=== PATIENT | female | born 1950 | race African-American/Black ===

== ENCOUNTER → 2021-01-30 | Outpatient (CLI) | payer OTHER ==
[2021-01-30 07:33] LABS: Basophils # (auto) 0 10 ^3/uL (0-0.2); Eosinophils # (auto) 0.2 10 ^3/uL (0-0.8); Monocytes # (auto) 0.4 10 ^3/uL (0-1.3); Neutrophils # (auto) 3.8 10 ^3/uL (1.6-8.6); Red Cell Distribution Width 13.1 % (11.8-14.3)
[2021-01-30 07:35] LABS: Basophils % (auto) 0.6 % (0.0-2.0); Eosinophils % (auto) 3.4 % (0.0-7.0); Hematocrit 43.3 % (36.0-46.0); Hemoglobin 14.9 g/dL (12.2-16.2); Lymphocytes # (auto) 1.1 10 ^3/uL (0.4-5.4); Lymphocytes % (auto) 19.3 % (10.0-50.0); Mean Corpuscular Hemoglobin 34.2 pg (28.0-32.0); Mean Corpuscular Hgb Conc. 34.3 g/dL (32.0-36.0); Mean Corpuscular Volume 99.7 fL (80.0-100.0); Monocytes % (auto) 8.1 % (0.0-12.0); Neutrophils % (auto) 68.6 % (37.0-80.0); Nucleated Red Blood Cells % 0.1 %; Platelet Count (auto) 195 10^3/uL (140-450); Red Blood Cells 4.34 10^6/uL (4.0-5.20); White Blood Cell 5.5 10^3/uL (4.4-10.8)
[2021-01-30 08:15] LABS: Albumin 3.6 g/dL (3.4-5.0); Calcium 9.5 mg/dL (8.5-10.1); Potassium 3.9 mmol/L (3.5-5.1)
[2021-01-30 08:21] LABS: BUN/Creatinine Ratio 22.2; Bilirubin, Total 0.4 mg/dL (0.2-1.0); Total Protein 7.6 g/dL (6.4-8.2)
== END | disposition home or self-care (01) ==
LOC: LAB 07:06
DX: I10 Essential (primary) hypertension (principal); E78.5 Hyperlipidemia, unspecified; M05.741 Rheumatoid arthritis with rheumatoid factor of right hand without organ or systems involvement
CPT/HCPCS: 36415; 80053; 80061; 84443; 85025; 86431

== ENCOUNTER → 2021-04-11 | Outpatient (CLI) | payer OTHER ==
[2021-04-11 12:10] LABS: Basophils # (auto) 0.1 10 ^3/uL (0-0.2); Basophils % (auto) 0.9 % (0.0-2.0); Eosinophils # (auto) 0.1 10 ^3/uL (0-0.8); Eosinophils % (auto) 1.9 % (0.0-7.0); Hematocrit 41.3 % (36.0-46.0); Lymphocytes # (auto) 1.4 10 ^3/uL (0.4-5.4); Lymphocytes % (auto) 19.5 % (10.0-50.0); Mean Corpuscular Hemoglobin 33.7 pg (28.0-32.0); Mean Corpuscular Hgb Conc. 33.9 g/dL (32.0-36.0); Mean Corpuscular Volume 99.4 fL (80.0-100.0); Monocytes # (auto) 0.5 10 ^3/uL (0-1.3); Monocytes % (auto) 6.3 % (0.0-12.0); Neutrophils # (auto) 5.1 10 ^3/uL (1.6-8.6); Neutrophils % (auto) 71.4 % (37.0-80.0); Nucleated Red Blood Cells % 0.1 %; Platelet Count (auto) 194 10^3/uL (140-450); Red Blood Cells 4.15 10^6/uL (4.0-5.20); Red Cell Distribution Width 13.8 % (11.8-14.3); White Blood Cell 7.2 10^3/uL (4.4-10.8)
[2021-04-11 13:28] LABS: Potassium 3.8 mmol/L (3.5-5.1)
[2021-04-11 13:34] LABS: Albumin 3.9 g/dL (3.4-5.0); BUN/Creatinine Ratio 17.7; Bilirubin, Total 0.3 mg/dL (0.2-1.0); CRP High Sensitivity 0.19 mg/dL (< 0.3); Total Protein 7.7 g/dL (6.4-8.2)
== END | disposition home or self-care (01) ==
LOC: LAB 11:31
PROVIDERS: ATTEND Internal Medicine Rheumatology
DX: M05.79 Rheumatoid arthritis with rheumatoid factor of multiple sites without organ or systems involvement (principal); R94.5 Abnormal results of liver function studies; M32.10 Systemic lupus erythematosus, organ or system involvement unspecified
CPT/HCPCS: 36415; 80053; 85025; 85049; 85652; 86141; 86200; 86431

== ENCOUNTER → 2021-04-25 | Outpatient (CLI) | payer OTHER | END | disposition home or self-care (01) | LOC: XYW 08:48 | PROVIDERS: ATTEND Internal Medicine | DX: I08.2 Rheumatic disorders of both aortic and tricuspid valves (principal); R00.2 Palpitations | CPT/HCPCS: 93306 ==

== ENCOUNTER 2021-07-18 07:55 | Inpatient (IN) | payer OTHER ==
[~2021-07-18] VITALS: Ht 172.7 cm; Wt 80.3 kg
[2021-07-18 08:54] LABS: Urine Specific Gravity 1.014 (1.001-1.035)
[2021-07-18 08:55] LABS: Urine Bacteria NONE SEEN /hpf (None Seen); Urine Blood Negative /uL (Negative); Urine Hyaline Cast FEW /lpf (0 - 2); Urine WBC 1 /hpf (0 - 5)
[2021-07-18 09:01] LABS: Albumin 3.9 g/dL (3.4-5.0); BUN/Creatinine Ratio 18.5; Calcium 9.2 mg/dL (8.5-10.1); Potassium 3.2 mmol/L (3.5-5.1)
[2021-07-18 09:03] LABS: Bilirubin, Total 0.9 mg/dL (0.2-1.0); Total Protein 8.3 g/dL (6.4-8.2)
[2021-07-18 09:17] LABS: Basophils # (auto) 0 10 ^3/uL (0-0.2); Basophils % (auto) 0.2 % (0.0-2.0); Eosinophils # (auto) 0 10 ^3/uL (0-0.8); Eosinophils % (auto) 0.2 % (0.0-7.0); Hematocrit 50.1 % (36.0-46.0); Hemoglobin 17.1 g/dL (12.2-16.2); Lymphocytes # (auto) 0.6 10 ^3/uL (0.4-5.4); Lymphocytes % (auto) 8.5 % (10.0-50.0); Mean Corpuscular Hemoglobin 33.4 pg (28.0-32.0); Mean Corpuscular Hgb Conc. 34.1 g/dL (32.0-36.0); Mean Corpuscular Volume 97.9 fL (80.0-100.0); Monocytes # (auto) 1.2 10 ^3/uL (0-1.3); Monocytes % (auto) 17.3 % (0.0-12.0); Neutrophils % (auto) 73.8 % (37.0-80.0); Nucleated Red Blood Cells % 0.2 %; Red Blood Cells 5.12 10^6/uL (4.0-5.20); Red Cell Distribution Width 12.3 % (11.8-14.3); White Blood Cell 6.7 10^3/uL (4.4-10.8)
[2021-07-18] MEDS ORDERED: LACTATED RINGER'S 1,000 ML IV ONE (13:15)
[2021-07-18] MEDS ORDERED: MORPHINE SULFATE INJECTION 2 MG/ML SYRG IV PRN ×2 (13:15→15:00)
[2021-07-18] MEDS ORDERED: NITROGLYCERIN 0.4 MG SL TAB SL PRN ×2 (13:15→15:00)
[2021-07-18] MEDS ORDERED: POTASSIUM CHL 20MEQ/100ML 100 ML IV ONE ×2 (13:15→15:16)
[2021-07-18] MEDS ORDERED: ACETAMINOPHEN 325 MG TAB PO PRN (15:00)
[2021-07-18] MEDS ORDERED: ALUM & MAG HYDROX-SIMETH LIQ(MAALOX) 30 ML PO PRN (15:00)
[2021-07-18] MEDS ORDERED: PANTOPRAZOLE 40 MG/10 ML VIAL INJ IV ONE (15:00)
[2021-07-18] MEDS ORDERED: DOCUSATE SOD 100 MG CAP PO PRN (15:00)
[2021-07-18] MEDS ORDERED: IPRATROPIUM BROM 0.5 MG/2.5ML INH SOL NEB ONE (15:00)
[2021-07-18] MEDS ORDERED: ONDANSETRON HCL 4 MG/2 ML VIAL IV PRN (15:00)
[2021-07-18] MEDS ORDERED: CLINDAMYCIN 600MG IV 50 ML IV ONE (15:00)
[2021-07-18] MEDS ORDERED: NIFEdipine ER 30 MG TAB PO ONE (15:00)
[2021-07-18] MEDS ORDERED: cefTRIAXone 1GM/50ML D5W 50 ML IV ONE (15:00)
[2021-07-18] MEDS ORDERED: LORazepam 0.5 MG TAB PO PRN (15:00)
[2021-07-18 15:24] VITALS: BP 138/90
[2021-07-18] MEDS: SOD CHL 0.9%/ KCL 20MEQ 1,000 ML IV SCH (15:37)
[2021-07-18 16:27] LABS: Cholesterol 151 mg/dL (< 200)
[2021-07-18] MEDS ORDERED: SOD CHL 0.9%/ KCL 20MEQ 1,000 ML IV ONE (16:27)
[2021-07-18 16:31] LABS: HDL Cholesterol 52 mg/dL (40-59); LDL Cholesterol 82 mg/dL (< 100); Triglycerides 154 mg/dL (< 150)
[2021-07-18 16:36] VITALS: BP 134/92
[2021-07-18] MEDS: MORPHINE SULFATE INJECTION 2 MG/ML SYRG IV PRN (17:59)
[2021-07-18 20:00] VITALS: BP 110/65
[2021-07-18] MEDS ORDERED: CLINDAMYCIN 600MG IV 50 ML IV SCH (21:25)
[2021-07-18] MEDS: CLINDAMYCIN 600MG IV 50 ML IV SCH (21:32)
[2021-07-18 22:00] VITALS: BP 110/65
[2021-07-19] MEDS: SOD CHL 0.9%/ KCL 20MEQ 1,000 ML IV SCH ×2 (04:20→09:57)
[2021-07-19 05:00] VITALS: BP 102/64
[2021-07-19] MEDS: CLINDAMYCIN 600MG IV 50 ML IV SCH ×3 (06:00→22:00)
[2021-07-19] MEDS ORDERED: GASTROGRAFIN 120 ML SOL ONE (07:33)
[2021-07-19] MEDS: cefTRIAXone 1GM/50ML D5W 50 ML IV SCH (09:46)
[2021-07-19] MEDS: MORPHINE SULFATE INJECTION 2 MG/ML SYRG IV PRN (09:47)
[2021-07-19] MEDS: hydrOXYchloroQUINE SULFATE 200 MG TAB PO SCH (10:00)
[2021-07-19] MEDS: NIFEdipine ER 30 MG TAB PO SCH (10:00)
[2021-07-19] MEDS: PANTOPRAZOLE 40 MG/10 ML VIAL INJ IV SCH (12:29)
[2021-07-19] MEDS ORDERED: DICYCLOMINE HCL (10MG/ML) 2 ML AMPULE IM PRN (12:30)
[2021-07-19 12:52] VITALS: BP 90/61
[2021-07-19] MEDS: IPRATROPIUM BROM 0.5 MG/2.5ML INH SOL NEB PRN (13:55)
[2021-07-19 17:00] VITALS: BP 99/64
[2021-07-19] MEDS ORDERED: DICYCLOMINE HCL (10MG/ML) 2 ML AMPULE IM ONE (19:00)
[2021-07-19 20:00] VITALS: BP 124/72
[2021-07-19] MEDS: DICYCLOMINE HCL (10MG/ML) 2 ML AMPULE IM SCH (21:30)
[2021-07-19 22:00] VITALS: BP 124/72
[2021-07-20] MEDS ORDERED: DICYCLOMINE HCL (10MG/ML) 2 ML AMPULE IM SCH
[2021-07-20 00:25] LABS: Urine Bacteria FEW /hpf (None Seen); Urine Blood Negative /uL (Negative); Urine Hyaline Cast FEW /lpf (0 - 2); Urine Mucus FEW (None Seen); Urine WBC 7 /hpf (0 - 5)
[2021-07-20 00:51] LABS: Alcohol, Urine < 3.0 mg/dL (0-10); Amphetamine Screen, Urine NEGATIVE (NEGATIVE); Barbiturate Scree,Urine NEGATIVE (NEGATIVE); Benzodiazephine Screen, Urine NEGATIVE (NEGATIVE); Cannabinoid Screen, Urine NEGATIVE (NEGATIVE); Cocaine Screen, Urine NEGATIVE (NEGATIVE); Opiate Scree,Urine POSITIVE (NEGATIVE); Phencyclidine Screen, Urine NEGATIVE (NEGATIVE)
[2021-07-20] MEDS: DICYCLOMINE HCL (10MG/ML) 2 ML AMPULE IM SCH (03:00)
[2021-07-20 05:00] VITALS: BP 130/74
[2021-07-20] MEDS: CLINDAMYCIN 600MG IV 50 ML IV SCH (06:00)
[2021-07-20] MEDS: IPRATROPIUM BROM 0.5 MG/2.5ML INH SOL NEB PRN (06:38)
[2021-07-20 06:42] LABS: Basophils # (auto) 0 10 ^3/uL (0-0.2); Basophils % (auto) 0.1 % (0.0-2.0); Eosinophils # (auto) 0 10 ^3/uL (0-0.8); Hematocrit 43.8 % (36.0-46.0); Hemoglobin 14.8 g/dL (12.2-16.2); Lymphocytes # (auto) 0.3 10 ^3/uL (0.4-5.4); Lymphocytes % (auto) 4.9 % (10.0-50.0); Mean Corpuscular Hemoglobin 33.1 pg (28.0-32.0); Mean Corpuscular Hgb Conc. 33.8 g/dL (32.0-36.0); Mean Corpuscular Volume 97.7 fL (80.0-100.0); Monocytes # (auto) 1.1 10 ^3/uL (0-1.3); Monocytes % (auto) 14.9 % (0.0-12.0); Neutrophils # (auto) 5.7 10 ^3/uL (1.6-8.6); Neutrophils % (auto) 80.1 % (37.0-80.0); Red Blood Cells 4.48 10^6/uL (4.0-5.20); Red Cell Distribution Width 12.3 % (11.8-14.3); White Blood Cell 7.1 10^3/uL (4.4-10.8)
[2021-07-20] MEDS: SOD CHL 0.9%/ KCL 20MEQ 1,000 ML IV SCH ×2 (07:00→11:15)
[2021-07-20 07:02] LABS: INR 1.01 (0.9-1.15); Partial Thromboplastin Time 24.5 sec (23.6-33.0)
[2021-07-20 07:05] LABS: Potassium 3.1 mmol/L (3.5-5.1)
[2021-07-20 07:08] LABS: Albumin 3.1 g/dL (3.4-5.0); BUN/Creatinine Ratio 19.9; Calcium 8.8 mg/dL (8.5-10.1)
[2021-07-20 07:20] LABS: Bilirubin, Total 0.4 mg/dL (0.2-1.0); Phosphorus 8.1 mg/dL (2.5-4.90); Total Protein 7.3 g/dL (6.4-8.2)
[2021-07-20 07:41] LABS: Magnesium 4.1 mg/dL (1.6-2.6)
[2021-07-20 09:00] VITALS: BP 118/75
[2021-07-20] MEDS: cefTRIAXone 1GM/50ML D5W 50 ML IV SCH (09:26)
[2021-07-20] MEDS: PANTOPRAZOLE 40 MG/10 ML VIAL INJ IV SCH (10:00)
[2021-07-20] MEDS: hydrOXYchloroQUINE SULFATE 200 MG TAB PO SCH (10:00)
[2021-07-20] MEDS: NIFEdipine ER 30 MG TAB PO SCH (10:00)
[2021-07-20] MEDS: D5W/SOD CHL 0.45%/KCL 40MEQ 1,000 ML IV SCH ×2 (11:00→19:20)
[2021-07-20] MEDS ORDERED: SODIUM CHLORIDE 0.9% 1,000 ML IV ONE (11:00)
[2021-07-20] MEDS ORDERED: POTASSIUM CHLORIDE 60 MEQ, LIDOCAINE 1% (LOCAL ANESTH.) 6 ML in SODIUM CHL 0.9% 500 ML IV ONE (13:00)
[2021-07-20 13:02] VITALS: BP 126/78
[2021-07-20 21:57] VITALS: BP 126/76
[2021-07-21] MEDS: D5W/SOD CHL 0.45%/KCL 40MEQ 1,000 ML IV SCH ×5 (03:40→21:40)
[2021-07-21 04:47] VITALS: BP 124/77
[2021-07-21 06:22] LABS: Calcium 8.7 mg/dL (8.5-10.1); Potassium 3.5 mmol/L (3.5-5.1)
[2021-07-21 06:24] LABS: BUN/Creatinine Ratio 24.9; Phosphorus 4.1 mg/dL (2.5-4.90)
[2021-07-21 06:41] LABS: Magnesium 4.1 mg/dL (1.6-2.6)
[2021-07-21 09:00] VITALS: BP 126/81
[2021-07-21] MEDS: PANTOPRAZOLE 40 MG/10 ML VIAL INJ IV SCH (10:00)
[2021-07-21] MEDS: hydrOXYchloroQUINE SULFATE 200 MG TAB PO SCH (10:00)
[2021-07-21] MEDS: NIFEdipine ER 30 MG TAB PO SCH (10:00)
[2021-07-21 13:00] VITALS: BP 132/82
[2021-07-21 17:00] VITALS: BP 150/82
[2021-07-21 20:01] VITALS: BP 150/82
[2021-07-21 22:00] VITALS: BP 147/96
[2021-07-22] MEDS: D5W/SOD CHL 0.45%/KCL 40MEQ 1,000 ML IV SCH ×3 (04:56→23:34)
[2021-07-22 05:00] VITALS: BP 138/91
[2021-07-22 06:04] LABS: Basophils # (auto) 0 10 ^3/uL (0-0.2); Basophils % (auto) 0.2 % (0.0-2.0); Eosinophils # (auto) 0.1 10 ^3/uL (0-0.8); Eosinophils % (auto) 1.3 % (0.0-7.0); Hematocrit 38.3 % (36.0-46.0); Hemoglobin 12.8 g/dL (12.2-16.2); Lymphocytes # (auto) 0.5 10 ^3/uL (0.4-5.4); Lymphocytes % (auto) 5.7 % (10.0-50.0); Mean Corpuscular Hemoglobin 33.3 pg (28.0-32.0); Mean Corpuscular Hgb Conc. 33.5 g/dL (32.0-36.0); Mean Corpuscular Volume 99.3 fL (80.0-100.0); Monocytes # (auto) 1.2 10 ^3/uL (0-1.3); Monocytes % (auto) 14.3 % (0.0-12.0); Neutrophils # (auto) 6.4 10 ^3/uL (1.6-8.6); Neutrophils % (auto) 78.5 % (37.0-80.0); Nucleated Red Blood Cells % 0.1 %; Red Blood Cells 3.85 10^6/uL (4.0-5.20); Red Cell Distribution Width 12.6 % (11.8-14.3); White Blood Cell 8.2 10^3/uL (4.4-10.8)
[2021-07-22 08:43] VITALS: BP 143/91
[2021-07-22 09:16] LABS: BUN/Creatinine Ratio 24.2; Calcium 8.6 mg/dL (8.5-10.1); Potassium 4.2 mmol/L (3.5-5.1)
[2021-07-22] MEDS: NIFEdipine ER 30 MG TAB PO SCH (10:00)
[2021-07-22] MEDS: hydrOXYchloroQUINE SULFATE 200 MG TAB PO SCH (10:00)
[2021-07-22] MEDS: PANTOPRAZOLE 40 MG/10 ML VIAL INJ IV SCH (10:42)
[2021-07-22] MEDS ORDERED: SODIUM CHLORIDE LOCK 10 ML ONE (12:14)
[2021-07-22] MEDS ORDERED: diphenhdrAMINE HCL 50 MG/1 ML VL ONE (12:15)
[2021-07-22] MEDS: MIDAZOLAM HCL 5 MG/ML-1ML VIAL ONE ×4 (14:19→14:28)
[2021-07-22] MEDS: fentaNYL CITRATE 100 MCG/2 ML VL ONE ×4 (14:19→14:28)
[2021-07-22] MEDS: MORPHINE SULFATE INJECTION 2 MG/ML SYRG IV PRN (16:46)
[2021-07-22 17:00] VITALS: BP 184/96
[2021-07-22] MEDS: hydrALAZINE HCL 20 MG/ML VL IV PRN (17:48)
[2021-07-22 18:50] VITALS: BP 147/101
[2021-07-22 22:00] VITALS: BP 133/87
[2021-07-23] MEDS: hydrALAZINE HCL 20 MG/ML VL IV PRN (04:12)
[2021-07-23] MEDS: D5W/SOD CHL 0.45%/KCL 40MEQ 1,000 ML IV SCH ×2 (04:12→10:15)
[2021-07-23 04:37] VITALS: BP 146/81
[2021-07-23 05:00] VITALS: BP 176/94
[2021-07-23 05:54] LABS: Basophils # (auto) 0 10 ^3/uL (0-0.2); Basophils % (auto) 0.1 % (0.0-2.0); Eosinophils # (auto) 0.2 10 ^3/uL (0-0.8); Eosinophils % (auto) 1.7 % (0.0-7.0); Hematocrit 40.1 % (36.0-46.0); Hemoglobin 13.4 g/dL (12.2-16.2); Lymphocytes # (auto) 0.8 10 ^3/uL (0.4-5.4); Lymphocytes % (auto) 8.1 % (10.0-50.0); Mean Corpuscular Hemoglobin 33.4 pg (28.0-32.0); Mean Corpuscular Hgb Conc. 33.4 g/dL (32.0-36.0); Mean Corpuscular Volume 100.1 fL (80.0-100.0); Monocytes # (auto) 1.2 10 ^3/uL (0-1.3); Monocytes % (auto) 12.5 % (0.0-12.0); Neutrophils # (auto) 7.6 10 ^3/uL (1.6-8.6); Neutrophils % (auto) 77.6 % (37.0-80.0); Red Cell Distribution Width 12.3 % (11.8-14.3); White Blood Cell 9.8 10^3/uL (4.4-10.8)
[2021-07-23 06:18] LABS: Albumin 2.3 g/dL (3.4-5.0); BUN/Creatinine Ratio 13.4; Calcium 8.5 mg/dL (8.5-10.1); Magnesium 2.1 mg/dL (1.6-2.6); Potassium 4.6 mmol/L (3.5-5.1)
[2021-07-23 06:20] LABS: Bilirubin, Total 0.3 mg/dL (0.2-1.0); Phosphorus 1.5 mg/dL (2.5-4.90)
[2021-07-23 09:00] VITALS: BP 145/93
[2021-07-23] MEDS ORDERED: POTASSIUM PHOSPHATE 22 MEQ in SODIUM CHL 0.9% 100 ML IV ONE (09:30)
[2021-07-23] MEDS: NIFEdipine ER 30 MG TAB PO SCH (10:00)
[2021-07-23] MEDS: hydrOXYchloroQUINE SULFATE 200 MG TAB PO SCH (10:00)
[2021-07-23] MEDS: PANTOPRAZOLE 40 MG/10 ML VIAL INJ IV SCH (10:15)
[2021-07-23 13:00] VITALS: BP 142/97
[2021-07-23] MEDS: SOD CHL 0.45% 1,000 ML IV SCH ×2 (13:03→23:38)
[2021-07-23 17:00] VITALS: BP 146/115
[2021-07-23] MEDS: METOCLOPRAMIDE HCL 5MG/ml INJ 2ml VIAL IV SCH ×2 (18:47→23:38)
[2021-07-23 21:50] VITALS: BP 149/90
[2021-07-24 05:00] VITALS: BP 150/99
[2021-07-24] MEDS: METOCLOPRAMIDE HCL 5MG/ml INJ 2ml VIAL IV SCH ×3 (05:56→18:15)
[2021-07-24 06:22] LABS: Potassium 4.3 mmol/L (3.5-5.1)
[2021-07-24 06:24] LABS: BUN/Creatinine Ratio 10.5; Calcium 9.4 mg/dL (8.5-10.1); Phosphorus 3.2 mg/dL (2.5-4.90)
[2021-07-24] MEDS: SOD CHL 0.45% 1,000 ML IV SCH (08:45)
[2021-07-24] MEDS ORDERED: fentaNYL CITRATE 100 MCG/2 ML VL ONE (08:51)
[2021-07-24] MEDS ORDERED: HYDROmorphone HCL 2 MG/ML VL ONE (08:51)
[2021-07-24] MEDS ORDERED: MIDAZOLAM HCL 2MG/2ML 2ml VIAL (1mg/ml) ONE (08:51)
[2021-07-24] MEDS ORDERED: ROCURONIUM 10MG/ML 10ML VIAL IV ONE (08:51)
[2021-07-24] MEDS ORDERED: ONDANSETRON HCL 4 MG/2 ML VIAL ONE (08:52)
[2021-07-24] MEDS ORDERED: ePHEDrine SULFATE 50 MG/ML AMP ONE (08:52)
[2021-07-24] MEDS ORDERED: GLYCOPYRROLATE 0.2 MG/ML 1ML VIAL ONE (08:52)
[2021-07-24] MEDS ORDERED: DexAMETHasone SOD PHOS 10MG/1ML VIAL INJ ONE (08:52)
[2021-07-24] MEDS ORDERED: HYDROCORTISONE SOD SUCC 100 MG/2ML INJ VIAL ONE (08:52)
[2021-07-24] MEDS ORDERED: LIDOCAINE 2% (LOCAL ANESTH.) PF 5ml SDV ONE (08:52)
[2021-07-24 09:00] VITALS: BP 141/93
[2021-07-24] MEDS ORDERED: metroNIDAZOLE 500MG/100ML 100 ML IV ONE (09:07)
[2021-07-24] MEDS ORDERED: FAMOTIDINE (10MG/ML) 2ML VL IV ONE (09:10)
[2021-07-24] MEDS: hydrOXYchloroQUINE SULFATE 200 MG TAB PO SCH (10:00)
[2021-07-24] MEDS: NIFEdipine ER 30 MG TAB PO SCH (10:00)
[2021-07-24] MEDS ORDERED: BACITRACIN TOP OINT 1 UD PKG TOP ONE (10:07)
[2021-07-24] MEDS ORDERED: HYDROmorphone HCL 2 MG/ML VL IV PRN (11:00)
[2021-07-24] MEDS ORDERED: ONDANSETRON HCL 4 MG/2 ML VIAL IV PRN (11:00)
[2021-07-24 11:21] LABS: Albumin 2.9 g/dL (3.4-5.0); Bilirubin, Direct 0.1 mg/dL (0-0.2)
[2021-07-24 11:24] LABS: Bilirubin, Total 0.3 mg/dL (0.2-1.0); Total Protein 7.2 g/dL (6.4-8.2)
[2021-07-24] MEDS ORDERED: TPN PER PHARMACY 0 ML IV SCH (11:30)
[2021-07-24] MEDS: D5W/SOD CHL 0.45%/KCL 20MEQ 1,000 ML IV SCH ×2 (11:50→18:17)
[2021-07-24] MEDS: cefTRIAXone 1GM/50ML D5W 50 ML IV SCH (11:50)
[2021-07-24] MEDS: PANTOPRAZOLE 40 MG/10 ML VIAL INJ IV SCH (11:50)
[2021-07-24 12:34] VITALS: BP 125/77
[2021-07-24 13:07] LABS: INR 1.05 (0.9-1.15); Partial Thromboplastin Time 26.6 sec (23.6-33.0)
[2021-07-24] MEDS: metroNIDAZOLE 500MG/100ML 100 ML IV SCH ×2 (13:32→20:47)
[2021-07-24 16:32] VITALS: BP 135/85
[2021-07-24] MEDS ORDERED: LIDOCAINE 1% (LOCAL ANESTH.) PF 5ml SDV ID ONE (17:45)
[2021-07-24] MEDS: HYDROCORTISONE SOD SUCC 100 MG/2ML INJ VIAL IV SCH (18:15)
[2021-07-24] MEDS ORDERED: PPN PER PHARMACY IV NR ×7 (20:00)
[2021-07-24] MEDS: SODIUM CHLOR 0.9% PF (SALINE LOCK) 10ML VIAL/SYR IV SCH (20:47)
[2021-07-24 21:56] VITALS: BP 143/86
[2021-07-25] VITALS (7 sets, daily range): BP systolic 144–163; BP diastolic 81–97
[2021-07-25] MEDS ORDERED: DEXTROSE (50%) 50ML SYRG IV SCH
[2021-07-25] MEDS: HYDROCORTISONE SOD SUCC 100 MG/2ML INJ VIAL IV SCH ×2 (00:52→08:27)
[2021-07-25] MEDS: METOCLOPRAMIDE HCL 5MG/ml INJ 2ml VIAL IV SCH ×4 (00:52→18:16)
[2021-07-25] MEDS: ACCU-CHEK COMFORT CURVE STRIP VI SCH ×4 (00:53→18:07)
[2021-07-25] MEDS: D5W/SOD CHL 0.45%/KCL 20MEQ 1,000 ML IV SCH ×4 (03:00→21:09)
[2021-07-25] MEDS: InsuLIN REG 1unit/0.01ml Soln (100units/ml) SC SCH ×4 (06:00→18:09)
[2021-07-25] MEDS: metroNIDAZOLE 500MG/100ML 100 ML IV SCH ×2 (06:59→15:15)
[2021-07-25 07:18] LABS: Albumin 2.1 g/dL (3.4-5.0); Calcium 8.5 mg/dL (8.5-10.1); Potassium 4.5 mmol/L (3.5-5.1)
[2021-07-25 07:23] LABS: BUN/Creatinine Ratio 13.6; Bilirubin, Total 0.2 mg/dL (0.2-1.0); Phosphorus 1.8 mg/dL (2.5-4.90); Pre Albumin 10.8 mg/dL (20.0-40.0); Total Protein 5.6 g/dL (6.4-8.2)
[2021-07-25] MEDS: cefTRIAXone 1GM/50ML D5W 50 ML IV SCH (08:26)
[2021-07-25] MEDS: PANTOPRAZOLE 40 MG/10 ML VIAL INJ IV SCH (08:27)
[2021-07-25] MEDS: MORPHINE SULFATE INJECTION 2 MG/ML SYRG IV PRN ×3 (08:29→22:13)
[2021-07-25] MEDS: SODIUM CHLOR 0.9% PF (SALINE LOCK) 10ML VIAL/SYR IV SCH ×2 (08:59→21:09)
[2021-07-25] MEDS: NIFEdipine ER 30 MG TAB PO SCH (10:00)
[2021-07-25] MEDS: hydrOXYchloroQUINE SULFATE 200 MG TAB PO SCH (10:00)
[2021-07-25] MEDS ORDERED: POTASSIUM PHOSPHATE 22 MEQ in SODIUM CHL 0.9% 100 ML IV ONE (10:00)
[2021-07-25] MEDS: hydrALAZINE HCL 20 MG/ML VL IV PRN (18:25)
[2021-07-25] MEDS ORDERED: TPN PER PHARMACY IV NR ×8 (20:00)
[2021-07-26] MEDS: METOCLOPRAMIDE HCL 5MG/ml INJ 2ml VIAL IV SCH ×5 (01:06→23:12)
[2021-07-26 05:00] VITALS: BP 164/97
[2021-07-26 06:01] LABS: Potassium 3.7 mmol/L (3.5-5.1)
[2021-07-26 06:07] LABS: BUN/Creatinine Ratio 16.4; Bilirubin, Total 0.2 mg/dL (0.2-1.0); Calcium 8.5 mg/dL (8.5-10.1); Magnesium 2.2 mg/dL (1.6-2.6); Phosphorus 2.7 mg/dL (2.5-4.90); Total Protein 5.5 g/dL (6.4-8.2)
[2021-07-26] MEDS: InsuLIN REG 1unit/0.01ml Soln (100units/ml) SC SCH ×5 (06:44→22:00)
[2021-07-26] MEDS: ACCU-CHEK COMFORT CURVE STRIP VI SCH ×5 (06:44→23:10)
[2021-07-26] MEDS: D5W/SOD CHL 0.45%/KCL 20MEQ 1,000 ML IV SCH ×2 (06:45→14:34)
[2021-07-26 08:00] VITALS: BP 161/95
[2021-07-26 09:00] VITALS: BP 161/95
[2021-07-26] MEDS: NIFEdipine ER 30 MG TAB PO SCH (10:00)
[2021-07-26] MEDS: hydrOXYchloroQUINE SULFATE 200 MG TAB PO SCH (10:00)
[2021-07-26] MEDS: SODIUM CHLOR 0.9% PF (SALINE LOCK) 10ML VIAL/SYR IV SCH ×2 (10:02→23:10)
[2021-07-26] MEDS: MORPHINE SULFATE INJECTION 2 MG/ML SYRG IV PRN ×3 (10:04→23:21)
[2021-07-26] MEDS: hydrALAZINE HCL 20 MG/ML VL IV PRN (10:14)
[2021-07-26] MEDS: PANTOPRAZOLE 40 MG/10 ML VIAL INJ IV SCH (10:14)
[2021-07-26 13:00] VITALS: BP_SYST 147; BP_SYST 158; BP_DIAS 103; BP_DIAS 105
[2021-07-26 16:49] VITALS: BP 151/95
[2021-07-26] MEDS ORDERED: TPN PER PHARMACY IV NR ×7 (20:00)
[2021-07-26 21:52] VITALS: BP 148/92
[2021-07-27 05:00] VITALS: BP 152/93
[2021-07-27] MEDS: InsuLIN REG 1unit/0.01ml Soln (100units/ml) SC SCH ×3 (06:00→18:00)
[2021-07-27 06:28] LABS: Potassium 3.8 mmol/L (3.5-5.1)
[2021-07-27] MEDS: METOCLOPRAMIDE HCL 5MG/ml INJ 2ml VIAL IV SCH ×3 (06:33→18:02)
[2021-07-27] MEDS: ACCU-CHEK COMFORT CURVE STRIP VI SCH ×3 (06:33→18:03)
[2021-07-27 06:34] LABS: Albumin 1.8 g/dL (3.4-5.0); Bilirubin, Total 0.2 mg/dL (0.2-1.0); Calcium 8.4 mg/dL (8.5-10.1); Magnesium 1.7 mg/dL (1.6-2.6); Phosphorus 3.1 mg/dL (2.5-4.90); Total Protein 5.3 g/dL (6.4-8.2)
[2021-07-27] MEDS: MORPHINE SULFATE INJECTION 2 MG/ML SYRG IV PRN (06:35)
[2021-07-27 08:00] VITALS: BP 162/98
[2021-07-27 09:00] VITALS: BP 162/98
[2021-07-27] MEDS: SODIUM CHLOR 0.9% PF (SALINE LOCK) 10ML VIAL/SYR IV SCH (09:25)
[2021-07-27] MEDS: NIFEdipine ER 30 MG TAB PO SCH (09:25)
[2021-07-27] MEDS: hydrOXYchloroQUINE SULFATE 200 MG TAB PO SCH (09:25)
[2021-07-27] MEDS: PANTOPRAZOLE 40 MG/10 ML VIAL INJ IV SCH (09:25)
[2021-07-27] MEDS: D5W/SOD CHL 0.45%/KCL 20MEQ 1,000 ML IV SCH (09:26)
[2021-07-27] MEDS: hydrALAZINE HCL 20 MG/ML VL IV PRN (09:36)
[2021-07-27 11:46] LABS: BUN/Creatinine Ratio 16.5; Calcium 8.9 mg/dL (8.5-10.1); Potassium 4.4 mmol/L (3.5-5.1)
[2021-07-27 17:00] VITALS: BP 162/110
[2021-07-27] MEDS: HYDROcodone-ACET 5/325MG TAB PO PRN (18:05)
[2021-07-27] MEDS ORDERED: TPN PER PHARMACY IV NR ×7 (20:00)
[2021-07-27 22:24] VITALS: BP 158/95
[2021-07-28] MEDS: METOCLOPRAMIDE HCL 5MG/ml INJ 2ml VIAL IV SCH ×4 (00:17→17:45)
[2021-07-28] MEDS: ACCU-CHEK COMFORT CURVE STRIP VI SCH ×4 (00:18→18:41)
[2021-07-28] MEDS: SODIUM CHLOR 0.9% PF (SALINE LOCK) 10ML VIAL/SYR IV SCH ×3 (00:19→21:22)
[2021-07-28] MEDS: HYDROcodone-ACET 5/325MG TAB PO PRN (04:01)
[2021-07-28 05:01] VITALS: BP 155/97
[2021-07-28] MEDS: InsuLIN REG 1unit/0.01ml Soln (100units/ml) SC SCH ×4 (05:42→18:00)
[2021-07-28 06:05] LABS: Potassium 3.4 mmol/L (3.5-5.1)
[2021-07-28 06:11] LABS: Albumin 2.2 g/dL (3.4-5.0); Bilirubin, Total 0.3 mg/dL (0.2-1.0); Calcium 8.9 mg/dL (8.5-10.1)
[2021-07-28] MEDS: D5W/SOD CHL 0.45%/KCL 20MEQ 1,000 ML IV SCH (06:48)
[2021-07-28 08:00] VITALS: BP_SYST 109; BP_SYST 156; BP_DIAS 54; BP_DIAS 94
[2021-07-28] MEDS ORDERED: POTASSIUM PHOSP 22MEQ(15MMOLE) in NS 100 ML IV ONE (10:00)
[2021-07-28] MEDS: hydrOXYchloroQUINE SULFATE 200 MG TAB PO SCH (10:23)
[2021-07-28] MEDS: NIFEdipine ER 30 MG TAB PO SCH (10:23)
[2021-07-28] MEDS: PANTOPRAZOLE 40 MG/10 ML VIAL INJ IV SCH (10:23)
[2021-07-28 12:00] VITALS: BP 156/99
[2021-07-28 16:00] VITALS: BP 141/90
[2021-07-28 20:00] VITALS: BP 156/94
[2021-07-28] MEDS ORDERED: TPN PER PHARMACY IV NR ×8 (20:00)
[2021-07-28 22:00] VITALS: BP 121/84
[2021-07-29] MEDS: D5W/SOD CHL 0.45%/KCL 20MEQ 1,000 ML IV SCH (02:15)
[2021-07-29 05:00] VITALS: BP 133/81
[2021-07-29] MEDS: InsuLIN REG 1unit/0.01ml Soln (100units/ml) SC SCH ×3 (05:31→12:02)
[2021-07-29] MEDS: METOCLOPRAMIDE HCL 5MG/ml INJ 2ml VIAL IV SCH ×3 (05:31→12:00)
[2021-07-29] MEDS: ACCU-CHEK COMFORT CURVE STRIP VI SCH ×3 (05:31→12:00)
[2021-07-29 06:02] LABS: Albumin 2.1 g/dL (3.4-5.0); BUN/Creatinine Ratio 18.3; Calcium 8.7 mg/dL (8.5-10.1); Magnesium 1.7 mg/dL (1.6-2.6); Potassium 3.5 mmol/L (3.5-5.1)
[2021-07-29 06:05] LABS: Bilirubin, Total 0.4 mg/dL (0.2-1.0); Phosphorus 2.7 mg/dL (2.5-4.90); Total Protein 5.8 g/dL (6.4-8.2)
[2021-07-29 09:00] VITALS: BP 126/84
[2021-07-29] MEDS: PANTOPRAZOLE 40 MG/10 ML VIAL INJ IV SCH (10:12)
[2021-07-29] MEDS: SODIUM CHLOR 0.9% PF (SALINE LOCK) 10ML VIAL/SYR IV SCH (10:12)
[2021-07-29] MEDS: NIFEdipine ER 30 MG TAB PO SCH (10:15)
[2021-07-29] MEDS: hydrOXYchloroQUINE SULFATE 200 MG TAB PO SCH (10:16)
[2021-07-29 13:00] VITALS: BP 137/77
[2021-07-29 15:11] VITALS: BP 132/58
[2021-07-29] MEDS ORDERED: TPN PER PHARMACY IV NR ×7 (20:00)
== END 2021-07-29 15:43 | disposition home or self-care (01) | DRG 335 ==
LOC: ER 07:55 → WEST WING 13:06 → ER 15:39 → WEST WING 07-22 16:32
PROVIDERS: ADMIT Hospitalist; ATTEND Internal Medicine
PROC: 0DJD8ZZ Inspection of Lower Intestinal Tract, Via Natural or Artificial Opening Endoscopic (ICD-10-PCS; 2021-07-22)
PROC: 02HV33Z Insertion of Infusion Device into Superior Vena Cava, Percutaneous Approach (ICD-10-PCS; 2021-07-24)
PROC: 0D9670Z Drainage of Stomach with Drainage Device, Via Natural or Artificial Opening (ICD-10-PCS; 2021-07-24)
PROC: 0DN80ZZ Release Small Intestine, Open Approach (ICD-10-PCS; principal; 2021-07-24 09:12)
DX: K56.51 Intestinal adhesions [bands], with partial obstruction (principal); N17.0 Acute kidney failure with tubular necrosis; E87.3 Alkalosis; E78.5 Hyperlipidemia, unspecified; E86.0 Dehydration; K64.8 Other hemorrhoids; M19.90 Unspecified osteoarthritis, unspecified site; G62.9 Polyneuropathy, unspecified; E87.6 Hypokalemia; F17.210 Nicotine dependence, cigarettes, uncomplicated; I12.9 Hypertensive chronic kidney disease with stage 1 through stage 4 chronic kidney disease, or unspecified chronic kidney disease; Z20.822 Contact with and (suspected) exposure to COVID-19; K57.30 Diverticulosis of large intestine without perforation or abscess without bleeding; N18.2 Chronic kidney disease, stage 2 (mild); Z90.710 Acquired absence of both cervix and uterus
CPT/HCPCS: 36415; 36569; 45378; 71045; 74018; 74176; 74250; 80048; 80053; 80061; 80076; 80307; 81001; 82040; 82378; 82565; 82570; 82962; 83036; 83735; 83880; 84100; 84156; 84300; 84439; 84443; 84478; 84484; 84520; 85025; 85610; 85730; 86850; 86900; 86901; 87040; 87086; 87088; 87186; 87426; 88302; 94640; 96361; 96365; 96375; 97110; 97116; 97163; 97530; C9113; G0378; J0696; J1100; J1815; J2001; J2250; J2405; J3480; J3490

== ENCOUNTER → 2021-11-17 | Outpatient (CLI) | payer OTHER ==
[2021-11-17 09:51] LABS: Calcium 9.5 mg/dL (8.5-10.1); Potassium 3.9 mmol/L (3.5-5.1)
== END | disposition home or self-care (01) ==
LOC: LAB 09:04
PROVIDERS: ATTEND Nurse Practitioner Family
DX: R94.6 Abnormal results of thyroid function studies (principal)
CPT/HCPCS: 36415; 80048; 84439; 84443

== ENCOUNTER → 2021-12-08 | Outpatient (CLI) | payer OTHER ==
[2021-12-08 10:47] LABS: Creatinine, Urine 18 mg/dL (30.0-125.0); Protein, Urine < 5.0 mg/dL (0.0-11.9)
[2021-12-08 11:00] LABS: Potassium 4.9 mmol/L (3.5-5.1)
[2021-12-08 11:09] LABS: Albumin 3.9 g/dL (3.4-5.0); BUN/Creatinine Ratio 19.8
[2021-12-08 11:12] LABS: Bilirubin, Total 0.2 mg/dL (0.2-1.0); Total Protein 7.4 g/dL (6.4-8.2)
[2021-12-08 11:18] LABS: Urine Bacteria NONE SEEN /hpf (None Seen); Urine Blood Negative /uL (Negative); Urine Specific Gravity 1.004 (1.001-1.035); Urine WBC <1 /hpf (0 - 5)
[2021-12-08 11:28] LABS: Basophils # (auto) 0 10 ^3/uL (0-0.2); Basophils % (auto) 0.6 % (0.0-2.0); Eosinophils # (auto) 0.1 10 ^3/uL (0-0.8); Eosinophils % (auto) 1.3 % (0.0-7.0); Hematocrit 40.3 % (36.0-46.0); Hemoglobin 13.6 g/dL (12.2-16.2); Lymphocytes # (auto) 1.1 10 ^3/uL (0.4-5.4); Lymphocytes % (auto) 16.1 % (10.0-50.0); Mean Corpuscular Hemoglobin 33.4 pg (28.0-32.0); Mean Corpuscular Hgb Conc. 33.7 g/dL (32.0-36.0); Mean Corpuscular Volume 99.1 fL (80.0-100.0); Monocytes # (auto) 0.5 10 ^3/uL (0-1.3); Monocytes % (auto) 7.1 % (0.0-12.0); Neutrophils % (auto) 74.9 % (37.0-80.0); Nucleated Red Blood Cells % 0.1 %; Red Blood Cells 4.07 10^6/uL (4.0-5.20); Red Cell Distribution Width 12.8 % (11.8-14.3); White Blood Cell 6.7 10^3/uL (4.4-10.8)
== END | disposition home or self-care (01) ==
LOC: LAB 09:27
PROVIDERS: ATTEND Student in an Organized Health Care Education/Training Program
DX: N17.0 Acute kidney failure with tubular necrosis (principal); D63.1 Anemia in chronic kidney disease; R80.9 Proteinuria, unspecified; E55.9 Vitamin D deficiency, unspecified
CPT/HCPCS: 36415; 80053; 81001; 82306; 82570; 84156; 85025; 85652; 86038; 86160

== ENCOUNTER → 2022-02-17 | Outpatient (CLI) | payer OTHER ==
[2022-02-17 10:47] LABS: Folate (Folic Acid) 12.78 ng/mL (5.38-24)
== END | disposition home or self-care (01) ==
LOC: LAB 08:29
PROVIDERS: ATTEND Psychiatry & Neurology Neurology
DX: G62.2 Polyneuropathy due to other toxic agents (principal)
CPT/HCPCS: 36415; 82607; 82746; 82951; 84155; 84165

== ENCOUNTER → 2022-05-01 | Outpatient (CLI) | payer OTHER ==
[2022-05-01 11:56] LABS: Basophils # (auto) 0.1 10 ^3/uL (0-0.2); Basophils % (auto) 0.9 % (0.0-2.0); Eosinophils # (auto) 0.1 10 ^3/uL (0-0.8); Eosinophils % (auto) 2.1 % (0.0-7.0); Hematocrit 38.7 % (36.0-46.0); Hemoglobin 12.8 g/dL (12.2-16.2); Lymphocytes # (auto) 1.3 10 ^3/uL (0.4-5.4); Lymphocytes % (auto) 21.2 % (10.0-50.0); Mean Corpuscular Hemoglobin 32.7 pg (28.0-32.0); Mean Corpuscular Hgb Conc. 33.2 g/dL (32.0-36.0); Mean Corpuscular Volume 98.5 fL (80.0-100.0); Monocytes # (auto) 0.4 10 ^3/uL (0-1.3); Neutrophils # (auto) 4.3 10 ^3/uL (1.6-8.6); Neutrophils % (auto) 68.8 % (37.0-80.0); Nucleated Red Blood Cells % 0.1 %; Red Blood Cells 3.93 10^6/uL (4.0-5.20); Red Cell Distribution Width 13.4 % (11.8-14.3); White Blood Cell 6.3 10^3/uL (4.4-10.8)
[2022-05-01 12:31] LABS: Albumin 3.7 g/dL (3.4-5.0); BUN/Creatinine Ratio 17.8; Bilirubin, Total 0.4 mg/dL (0.2-1.0); Calcium 9.4 mg/dL (8.5-10.1); Total Protein 7.2 g/dL (6.4-8.2); Uric Acid 6.3 mg/dL (2.6-6.0)
[2022-05-02 07:06] LABS: Immunoglobulin G, Serum 904 mg/dL (586-1602)
== END | disposition home or self-care (01) ==
LOC: LAB 10:54
PROVIDERS: ATTEND Internal Medicine
DX: D47.2 Monoclonal gammopathy (principal)
CPT/HCPCS: 36415; 80053; 82232; 82784; 83615; 84155; 84165; 84550; 85025; 86334; 86335

== ENCOUNTER 2022-05-15 11:17 | Emergency (ER) | payer OTHER ==
[~2022-05-15] VITALS: Ht 172.7 cm; Wt 77.0 kg
[2022-05-15 12:01] LABS: Basophils # (auto) 0 10 ^3/uL (0-0.2); Lymphocytes # (auto) 1.1 10 ^3/uL (0.4-5.4); Monocytes # (auto) 0.5 10 ^3/uL (0-1.3); Nucleated Red Blood Cells % 0.1 %
[2022-05-15 12:07] LABS: Basophils % (auto) 0.5 % (0.0-2.0); Eosinophils # (auto) 0.2 10 ^3/uL (0-0.8); Eosinophils % (auto) 2.6 % (0.0-7.0); Hematocrit 41.7 % (36.0-46.0); Hemoglobin 13.4 g/dL (12.2-16.2); Lymphocytes % (auto) 17.7 % (10.0-50.0); Mean Corpuscular Hemoglobin 32.8 pg (28.0-32.0); Mean Corpuscular Hgb Conc. 32.1 g/dL (32.0-36.0); Mean Corpuscular Volume 102.1 fL (80.0-100.0); Monocytes % (auto) 7.9 % (0.0-12.0); Neutrophils # (auto) 4.4 10 ^3/uL (1.6-8.6); Neutrophils % (auto) 71.3 % (37.0-80.0); Red Blood Cells 4.08 10^6/uL (4.0-5.20); Red Cell Distribution Width 13.5 % (11.8-14.3); White Blood Cell 6.1 10^3/uL (4.4-10.8)
[2022-05-15 12:27] LABS: Albumin 3.8 g/dL (3.4-5.0); Calcium 9.2 mg/dL (8.5-10.1); Magnesium 2.3 mg/dL (1.6-2.6); Potassium 4.1 mmol/L (3.5-5.1)
[2022-05-15 12:38] LABS: BUN/Creatinine Ratio 13.6; Bilirubin, Total 0.2 mg/dL (0.2-1.0); Total Protein 7.4 g/dL (6.4-8.2)
[2022-05-15 15:10] VITALS: BP 124/82
== END 2022-05-15 15:30 | disposition home or self-care (01) ==
LOC: ER 11:17
DX: M79.89 Other specified soft tissue disorders (principal); I12.9 Hypertensive chronic kidney disease with stage 1 through stage 4 chronic kidney disease, or unspecified chronic kidney disease; N18.9 Chronic kidney disease, unspecified; E78.5 Hyperlipidemia, unspecified; Z90.710 Acquired absence of both cervix and uterus
CPT/HCPCS: 36415; 80053; 83735; 83880; 85025; 93005; 93970

== ENCOUNTER → 2022-07-07 | Outpatient (CLI) | payer OTHER ==
[2022-07-07 11:57] LABS: Urine WBC None Seen /hpf (0 - 5)
[2022-07-07 12:06] LABS: Urine Bacteria NONE SEEN /hpf (None Seen); Urine Blood Negative /uL (Negative); Urine Specific Gravity 1.002 (1.001-1.035)
[2022-07-07 12:09] LABS: Basophils # (auto) 0 10 ^3/uL (0-0.2); Basophils % (auto) 0.5 % (0.0-2.0); Eosinophils # (auto) 0.1 10 ^3/uL (0-0.8); Eosinophils % (auto) 1.2 % (0.0-7.0); Hematocrit 41.6 % (36.0-46.0); Hemoglobin 13.8 g/dL (12.2-16.2); Lymphocytes # (auto) 1.1 10 ^3/uL (0.4-5.4); Mean Corpuscular Hemoglobin 32.5 pg (28.0-32.0); Mean Corpuscular Hgb Conc. 33.2 g/dL (32.0-36.0); Mean Corpuscular Volume 97.8 fL (80.0-100.0); Monocytes # (auto) 0.4 10 ^3/uL (0-1.3); Monocytes % (auto) 6.3 % (0.0-12.0); Neutrophils # (auto) 5.5 10 ^3/uL (1.6-8.6); Nucleated Red Blood Cells % 0.1 %; Red Blood Cells 4.25 10^6/uL (4.0-5.20); Red Cell Distribution Width 13.2 % (11.8-14.3); White Blood Cell 7.1 10^3/uL (4.4-10.8)
[2022-07-07 12:34] LABS: BUN/Creatinine Ratio 19.6; Calcium 9.6 mg/dL (8.5-10.1)
== END | disposition home or self-care (01) ==
LOC: LAB 11:15
PROVIDERS: ATTEND Student in an Organized Health Care Education/Training Program
DX: N18.31 Chronic kidney disease, stage 3a (principal); D63.1 Anemia in chronic kidney disease; R80.9 Proteinuria, unspecified; R82.90 Unspecified abnormal findings in urine; M05.9 Rheumatoid arthritis with rheumatoid factor, unspecified; D51.9 Vitamin B12 deficiency anemia, unspecified
CPT/HCPCS: 36415; 80048; 81001; 85025; 86038; 86200; 86431

== ENCOUNTER → 2023-01-04 | Outpatient (CLI) | payer OTHER ==
[2023-01-04 13:24] LABS: Basophils # (auto) 0.1 10 ^3/uL (0-0.2); Basophils % (auto) 0.7 % (0.0-2.0); Eosinophils # (auto) 0.1 10 ^3/uL (0-0.8); Eosinophils % (auto) 1.5 % (0.0-7.0); Hematocrit 43.6 % (36.0-46.0); Hemoglobin 14.4 g/dL (12.2-16.2); Lymphocytes # (auto) 1.6 10 ^3/uL (0.4-5.4); Lymphocytes % (auto) 17.6 % (10.0-50.0); Mean Corpuscular Hemoglobin 32.7 pg (28.0-32.0); Mean Corpuscular Hgb Conc. 33.2 g/dL (32.0-36.0); Mean Corpuscular Volume 98.7 fL (80.0-100.0); Monocytes # (auto) 0.5 10 ^3/uL (0-1.3); Monocytes % (auto) 5.9 % (0.0-12.0); Neutrophils # (auto) 6.8 10 ^3/uL (1.6-8.6); Neutrophils % (auto) 74.3 % (37.0-80.0); Nucleated Red Blood Cells % 0.2 %; Red Blood Cells 4.41 10^6/uL (4.0-5.20); Red Cell Distribution Width 13.1 % (11.8-14.3); White Blood Cell 9.2 10^3/uL (4.4-10.8)
[2023-01-04 13:46] LABS: Albumin 3.7 g/dL (3.4-5.0); Calcium 9.4 mg/dL (8.5-10.1); Magnesium 2.5 mg/dL (1.6-2.6); Potassium 3.6 mmol/L (3.5-5.1)
[2023-01-04 13:50] LABS: BUN/Creatinine Ratio 13.5 (10.0-20.0); Bilirubin, Total 0.3 mg/dL (0.2-1.0); Total Protein 7.7 g/dL (6.4-8.2)
[2023-01-05 07:07] LABS: Immunoglobulin G, Serum 998 mg/dL (586-1602)
== END | disposition home or self-care (01) ==
LOC: LAB 12:36
PROVIDERS: ATTEND Internal Medicine
DX: D47.2 Monoclonal gammopathy (principal)
CPT/HCPCS: 36415; 80053; 82306; 82784; 83615; 83735; 83883; 85025; 86334

== ENCOUNTER → 2023-01-13 | Outpatient (CLI) | payer OTHER ==
[2023-01-13 14:14] LABS: Urine WBC None Seen /hpf (0 - 5)
[2023-01-13 14:21] LABS: Basophils # (auto) 0.1 10 ^3/uL (0-0.2); Basophils % (auto) 0.7 % (0.0-2.0); Eosinophils # (auto) 0.2 10 ^3/uL (0-0.8); Hematocrit 40.3 % (36.0-46.0); Hemoglobin 13.7 g/dL (12.2-16.2); Lymphocytes # (auto) 1.5 10 ^3/uL (0.4-5.4); Lymphocytes % (auto) 16.6 % (10.0-50.0); Mean Corpuscular Hemoglobin 33.4 pg (28.0-32.0); Mean Corpuscular Hgb Conc. 34.1 g/dL (32.0-36.0); Mean Corpuscular Volume 97.9 fL (80.0-100.0); Monocytes # (auto) 0.7 10 ^3/uL (0-1.3); Monocytes % (auto) 7.3 % (0.0-12.0); Neutrophils # (auto) 6.6 10 ^3/uL (1.6-8.6); Neutrophils % (auto) 73.4 % (37.0-80.0); Red Blood Cells 4.12 10^6/uL (4.0-5.20); Red Cell Distribution Width 13.1 % (11.8-14.3)
[2023-01-13 14:27] LABS: Urine Bacteria FEW /hpf (None Seen); Urine Blood Negative /uL (Negative); Urine Specific Gravity 1.004 (1.001-1.035)
[2023-01-13 15:32] LABS: Albumin 3.5 g/dL (3.4-5.0); Calcium 8.9 mg/dL (8.5-10.1); Magnesium 2.4 mg/dL (1.6-2.6); Potassium 3.7 mmol/L (3.5-5.1)
[2023-01-13 15:36] LABS: BUN/Creatinine Ratio 17.4 (10.0-20.0); Bilirubin, Total 0.4 mg/dL (0.2-1.0); Total Protein 7.1 g/dL (6.4-8.2); Uric Acid 5.6 mg/dL (2.6-6.0)
[2023-01-13 16:03] LABS: Protein, Urine 6.1 mg/dL (0.0-11.9)
== END | disposition home or self-care (01) ==
LOC: LAB 13:43
PROVIDERS: ATTEND Student in an Organized Health Care Education/Training Program
DX: E11.22 Type 2 diabetes mellitus with diabetic chronic kidney disease (principal); N18.30 Chronic kidney disease, stage 3 unspecified; N39.0 Urinary tract infection, site not specified; M10.9 Gout, unspecified; R80.9 Proteinuria, unspecified; E21.3 Hyperparathyroidism, unspecified; E55.9 Vitamin D deficiency, unspecified; D63.1 Anemia in chronic kidney disease
CPT/HCPCS: 36415; 80053; 81001; 82306; 82570; 83036; 83735; 83970; 84156; 84550; 85025

== ENCOUNTER → 2023-07-14 | Outpatient (CLI) | payer OTHER ==
[2023-07-14 12:13] LABS: Basophils # (auto) 0 10 ^3/uL (0-0.2); Basophils % (auto) 0.5 % (0.0-2.0); Eosinophils # (auto) 0.1 10 ^3/uL (0-0.8); Eosinophils % (auto) 1.8 % (0.0-7.0); Hematocrit 40.2 % (36.0-46.0); Hemoglobin 13.7 g/dL (12.2-16.2); Lymphocytes # (auto) 1.8 10 ^3/uL (0.4-5.4); Lymphocytes % (auto) 23.1 % (10.0-50.0); Mean Corpuscular Hemoglobin 34.1 pg (28.0-32.0); Mean Corpuscular Hgb Conc. 34.1 g/dL (32.0-36.0); Mean Corpuscular Volume 99.9 fL (80.0-100.0); Monocytes # (auto) 0.6 10 ^3/uL (0-1.3); Monocytes % (auto) 7.6 % (0.0-12.0); Neutrophils # (auto) 5.4 10 ^3/uL (1.6-8.6); Red Blood Cells 4.02 10^6/uL (4.0-5.20); Red Cell Distribution Width 13.1 % (11.8-14.3)
[2023-07-14 12:35] LABS: Alanine Aminotransferase 23 U/L (7-40); Albumin 4.3 g/dL (3.2-4.8); Alkaline Phosphatase 120 U/L (46-116); Anion Gap 5 (5-15); Aspartate Aminotransferase 23 U/L (13-40); BUN/Creatinine Ratio 8.8 (10.0-20.0); Bilirubin, Total 0.4 mg/dL (0.2-1.0); Blood Urea Nitrogen 10 mg/dL (9-23); Calcium 9.6 mg/dL (8.7-10.4); Carbon Dioxide 29 mmol/L (20-30); Chloride 109 mmol/L (98-107); Glucose 87 mg/dL (74-106); Potassium 4.5 mmol/L (3.5-5.1); Sodium 143 mmol/L (136-145); Uric Acid 5.8 mg/dL (3.1-7.8)
[2023-07-15 10:47] LABS: Alpha-1-Globulin 0.2 g/dL (0.0-0.4); Alpha-2-Globulin 0.8 g/dL (0.4-1.0); Gamma Globulin 1.7 g/dL (0.4-1.8); Globulin Total 3.8 g/dL (2.2-3.9); Immunoglobulin A 237 mg/dL (64-422); Immunoglobulin G, Serum 919 mg/dL (586-1602); Immunoglobulin M 145 mg/dL (26-217); Protein Total Serum 6.8 g/dL (6.0-8.5)
[2023-07-15 12:06] LABS: Kappa Lite Chain Free Serum 34.9 mg/L (3.3-19.4)
== END | disposition home or self-care (01) ==
LOC: LAB 11:50
PROVIDERS: ATTEND Internal Medicine
DX: D47.2 Monoclonal gammopathy (principal)
CPT/HCPCS: 36415; 80053; 82784; 83883; 84155; 84165; 84550; 85025

== ENCOUNTER → 2023-07-21 | Outpatient (CLI) | payer OTHER ==
[2023-07-21 11:35] LABS: Basophils # (auto) 0 10 ^3/uL (0-0.2); Basophils % (auto) 0.6 % (0.0-2.0); Eosinophils # (auto) 0.1 10 ^3/uL (0-0.8); Eosinophils % (auto) 1.8 % (0.0-7.0); Hematocrit 43.2 % (36.0-46.0); Hemoglobin 14.4 g/dL (12.2-16.2); Lymphocytes # (auto) 1.6 10 ^3/uL (0.4-5.4); Lymphocytes % (auto) 21.8 % (10.0-50.0); Mean Corpuscular Hemoglobin 33.7 pg (28.0-32.0); Mean Corpuscular Hgb Conc. 33.3 g/dL (32.0-36.0); Monocytes # (auto) 0.5 10 ^3/uL (0-1.3); Neutrophils % (auto) 68.8 % (37.0-80.0); Red Blood Cells 4.27 10^6/uL (4.0-5.20); Red Cell Distribution Width 12.7 % (11.8-14.3); White Blood Cell 7.3 10^3/uL (4.4-10.8)
[2023-07-21 11:38] LABS: Alanine Aminotransferase 24 U/L (7-40); Albumin 4.6 g/dL (3.2-4.8); Alkaline Phosphatase 128 U/L (46-116); Anion Gap 5 (5-15); Aspartate Aminotransferase 21 U/L (13-40); BUN/Creatinine Ratio 9.6 (10.0-20.0); Bilirubin, Total 0.5 mg/dL (0.2-1.0); Blood Urea Nitrogen 10 mg/dL (9-23); Calcium 10.1 mg/dL (8.5-10.1); Carbon Dioxide 30 mmol/L (20-30); Chloride 106 mmol/L (98-107); Glucose 74 mg/dL (74-106); Potassium 4.6 mmol/L (3.5-5.1); Sodium 141 mmol/L (136-145); Total Protein 7.6 g/dL (5.7-8.2); Urine Bacteria NONE SEEN /hpf (None Seen); Urine Blood Negative /uL (Negative); Urine Clarity Clear (Clear); Urine Color Yellow (Yellow); Urine Protein, UAD Negative (Negative); Urine Specific Gravity 1.012 (1.001-1.035); Urine Urobilinogen Normal (Negative); Urine WBC 1 /hpf (0 - 5)
[2023-07-21 11:54] LABS: Erythrocyte Sedimentation Rate 11 mm/hr (0-20)
[2023-07-21 12:01] LABS: Protein, Urine < 6.0 mg/dL (0.0-11.9)
[2023-07-21 12:03] LABS: Creatinine, Urine 64.74 mg/dL (30.0-125.0)
[2023-07-21 12:09] LABS: Uric Acid 5.9 mg/dL (3.1-7.8)
== END | disposition home or self-care (01) ==
LOC: LAB 10:33
PROVIDERS: ATTEND Student in an Organized Health Care Education/Training Program
DX: N18.31 Chronic kidney disease, stage 3a (principal); D63.1 Anemia in chronic kidney disease; R82.90 Unspecified abnormal findings in urine; R80.9 Proteinuria, unspecified; M10.9 Gout, unspecified; R70.0 Elevated erythrocyte sedimentation rate
CPT/HCPCS: 36415; 80053; 81001; 82306; 82570; 84156; 84550; 85025; 85652; 86038

== ENCOUNTER 2023-08-09 11:36 | Inpatient (IN) | payer OTHER ==
[~2023-08-09] VITALS: Ht 172.7 cm; Wt 74.0 kg
[2023-08-09 12:17] LABS: Basophils # (auto) 0 10 ^3/uL (0-0.2); Basophils % (auto) 0.5 % (0.0-2.0); Eosinophils # (auto) 0.1 10 ^3/uL (0-0.8); Eosinophils % (auto) 0.9 % (0.0-7.0); Hematocrit 41.3 % (36.0-46.0); Hemoglobin 13.9 g/dL (12.2-16.2); Lymphocytes # (auto) 0.9 10 ^3/uL (0.4-5.4); Lymphocytes % (auto) 9.9 % (10.0-50.0); Mean Corpuscular Hemoglobin 33.9 pg (28.0-32.0); Mean Corpuscular Hgb Conc. 33.6 g/dL (32.0-36.0); Mean Corpuscular Volume 100.9 fL (80.0-100.0); Monocytes # (auto) 0.4 10 ^3/uL (0-1.3); Monocytes % (auto) 4.5 % (0.0-12.0); Neutrophils # (auto) 7.8 10 ^3/uL (1.6-8.6); Neutrophils % (auto) 84.2 % (37.0-80.0); Red Blood Cells 4.09 10^6/uL (4.0-5.20); Red Cell Distribution Width 13.1 % (11.8-14.3); White Blood Cell 9.2 10^3/uL (4.4-10.8)
[2023-08-09 12:48] LABS: Alanine Aminotransferase 21 U/L (7-40); Albumin 4.3 g/dL (3.2-4.8); Alkaline Phosphatase 119 U/L (46-116); Anion Gap 6 (5-15); Aspartate Aminotransferase 21 U/L (13-40); BUN/Creatinine Ratio 12.7 (10.0-20.0); Bilirubin, Total 0.3 mg/dL (0.2-1.0); Blood Urea Nitrogen 13 mg/dL (9-23); Calcium 9.6 mg/dL (8.5-10.1); Carbon Dioxide 26 mmol/L (20-30); Chloride 108 mmol/L (98-107); Glucose 123 mg/dL (74-106); Potassium 4.1 mmol/L (3.5-5.1); Sodium 140 mmol/L (136-145); Total Protein 6.6 g/dL (5.7-8.2)
[2023-08-09] MEDS ORDERED: NITROGLYCERIN 0.4 MG SL TAB SL PRN (19:15)
[2023-08-09] MEDS ORDERED: ONDANSETRON HCL 4 MG/2 ML VIAL IV PRN (19:15)
[2023-08-09] MEDS ORDERED: ACETAMINOPHEN 325 MG TAB PO PRN (19:15)
[2023-08-09] MEDS ORDERED: MORPHINE SULFATE INJ 2 MG/ml SYRG IV PRN (19:15)
[2023-08-09] MEDS ORDERED: DOCUSATE SOD 100 MG CAP PO PRN (19:15)
[2023-08-09] MEDS: DICLOFENAC 50MG TAB PO SCH (22:00)
[2023-08-09] MEDS ORDERED: ATORVASTATIN 20 MG TAB PO SCH (22:00)
[2023-08-09 23:22] VITALS: PULSE 55; RESP 20; O2SAT 100
[2023-08-09] MEDS: LISINOPRIL 20 MG TAB PO SCH (23:41)
[2023-08-09] MEDS: GABAPENTIN 300 MG CAP PO SCH (23:41)
[2023-08-10] MEDS: GABAPENTIN 300 MG CAP PO SCH ×2 (06:41→14:00)
[2023-08-10 08:35] LABS: Basophils # (auto) 0 10 ^3/uL (0-0.2); Basophils % (auto) 0.6 % (0.0-2.0); Eosinophils # (auto) 0.2 10 ^3/uL (0-0.8); Hematocrit 39.6 % (36.0-46.0); Hemoglobin 13.4 g/dL (12.2-16.2); Lymphocytes # (auto) 1.5 10 ^3/uL (0.4-5.4); Lymphocytes % (auto) 20.1 % (10.0-50.0); Mean Corpuscular Hgb Conc. 33.8 g/dL (32.0-36.0); Mean Corpuscular Volume 100.6 fL (80.0-100.0); Monocytes # (auto) 0.5 10 ^3/uL (0-1.3); Monocytes % (auto) 6.1 % (0.0-12.0); Neutrophils # (auto) 5.3 10 ^3/uL (1.6-8.6); Neutrophils % (auto) 71.2 % (37.0-80.0); Red Blood Cells 3.94 10^6/uL (4.0-5.20); Red Cell Distribution Width 12.7 % (11.8-14.3); White Blood Cell 7.4 10^3/uL (4.4-10.8)
[2023-08-10 08:46] LABS: LDL Cholesterol 87 mg/dL (< 100); Triglycerides 114 mg/dL (< 150)
[2023-08-10 08:47] LABS: Alanine Aminotransferase 18 U/L (7-40); Alkaline Phosphatase 110 U/L (46-116); Anion Gap 7 (5-15); BUN/Creatinine Ratio 19.4 (10.0-20.0); Blood Urea Nitrogen 20 mg/dL (9-23); Calcium 9.7 mg/dL (8.5-10.1); Carbon Dioxide 26 mmol/L (20-30); Chloride 109 mmol/L (98-107); Cholesterol 164 mg/dL (< 200); Glucose 133 mg/dL (74-106); Potassium 3.7 mmol/L (3.5-5.1); Sodium 142 mmol/L (136-145)
[2023-08-10 08:48] LABS: Albumin 4.3 g/dL (3.2-4.8); Aspartate Aminotransferase 16 U/L (13-40)
[2023-08-10 08:49] LABS: Bilirubin, Total 0.3 mg/dL (0.2-1.0); HDL Cholesterol 52 mg/dL (40-59); Total Protein 6.8 g/dL (5.7-8.2)
[2023-08-10] MEDS: DICLOFENAC 50MG TAB PO SCH (09:06)
[2023-08-10] MEDS: LISINOPRIL 20 MG TAB PO SCH (09:15)
[2023-08-10 09:45] VITALS: TEMP 98.5
[2023-08-10] MEDS ORDERED: amLODIPine BESYLATE 5 MG TAB PO SCH (10:00)
[2023-08-10] MEDS ORDERED: LORazepam 2MG/ML-1ML VIAL IV PRN (10:00)
[2023-08-10] MEDS ORDERED: hydrOXYchloroQUINE SULFATE 200 MG TAB PO SCH (10:00)
[2023-08-10] MEDS ORDERED: PANTOPRAZOLE 40 MG TAB PO SCH (10:00)
[2023-08-10] MEDS ORDERED: ENOXAPARIN SOD 40 MG/0.4 ML SYRINGE SC SCH (10:00)
[2023-08-10 14:53] VITALS: BP 138/82; PULSE 82; RESP 17; O2SAT 94
[2023-08-10 16:25] LABS: Folate (Folic Acid) > 24.00 ng/mL (>5.38)
== END 2023-08-10 16:02 | disposition home or self-care (01) | DRG 69 ==
LOC: ER 11:36 → TELE 19:18
PROVIDERS: ADMIT Nurse Practitioner Family; ATTEND Internal Medicine
DX: G45.9 Transient cerebral ischemic attack, unspecified (principal); E78.5 Hyperlipidemia, unspecified; I12.9 Hypertensive chronic kidney disease with stage 1 through stage 4 chronic kidney disease, or unspecified chronic kidney disease; N18.9 Chronic kidney disease, unspecified; F17.210 Nicotine dependence, cigarettes, uncomplicated; G62.9 Polyneuropathy, unspecified; I48.91 Unspecified atrial fibrillation; Z82.49 Family history of ischemic heart disease and other diseases of the circulatory system; Z90.710 Acquired absence of both cervix and uterus
CPT/HCPCS: 36415; 70450; 70551; 71045; 80053; 80061; 82607; 82746; 82962; 83036; 83880; 84443; 84484; 85025; 93005; 96372; G0378

== ENCOUNTER → 2023-12-20 | Outpatient (CLI) | payer OTHER | END | disposition home or self-care (01) | LOC: LAB 12:48 | PROVIDERS: ATTEND Internal Medicine | DX: Z12.11 Encounter for screening for malignant neoplasm of colon (principal) | CPT/HCPCS: 82270 ==

== ENCOUNTER → 2024-07-14 | Outpatient (CLI) | payer OTHER ==
[2024-07-14 11:05] LABS: Basophils % (auto) 0.6 % (0.0-2.0); Eosinophils # (auto) 0.1 10 ^3/uL (0-0.8); Hemoglobin 13.7 g/dL (12.2-16.2)
[2024-07-14 11:07] LABS: Basophils # (auto) 0.1 10 ^3/uL (0-0.2); Eosinophils % (auto) 1.1 % (0.0-7.0); Hematocrit 39.8 % (36.0-46.0); Lymphocytes # (auto) 1.1 10 ^3/uL (0.4-5.4); Lymphocytes % (auto) 13.3 % (10.0-50.0); Mean Corpuscular Hemoglobin 34.6 pg (28.0-32.0); Mean Corpuscular Hgb Conc. 34.5 g/dL (32.0-36.0); Mean Corpuscular Volume 100.1 fL (80.0-100.0); Monocytes # (auto) 0.5 10 ^3/uL (0-1.3); Monocytes % (auto) 5.5 % (0.0-12.0); Neutrophils # (auto) 6.8 10 ^3/uL (1.6-8.6); Neutrophils % (auto) 79.5 % (37.0-80.0); Platelet Count (auto) 205 10^3/uL (140-450); Red Blood Cells 3.97 10^6/uL (4.0-5.20); Red Cell Distribution Width 13.9 % (11.8-14.3); White Blood Cell 8.6 10^3/uL (4.4-10.8)
[2024-07-14 12:02] LABS: Alanine Aminotransferase 17 U/L (7-40); Albumin 4.5 g/dL (3.2-4.8); Alkaline Phosphatase 114 U/L (46-116); Anion Gap 5 (5-15); Aspartate Aminotransferase 17 U/L (13-40); BUN/Creatinine Ratio 13.5 (10.0-20.0); Blood Urea Nitrogen 13 mg/dL (9-23); Carbon Dioxide 27 mmol/L (20-31); Chloride 110 mmol/L (98-107); Glucose 81 mg/dL (74-106); Magnesium 2.2 mg/dL (1.6-2.6); Potassium 4.1 mmol/L (3.5-5.1); Sodium 142 mmol/L (136-145); Uric Acid 5.8 mg/dL (3.1-7.8)
[2024-07-14 12:03] LABS: Bilirubin, Total 0.4 mg/dL (0.2-1.0); Phosphorus 3.8 mg/dL (2.4-5.1); Total Protein 7.1 g/dL (5.7-8.2)
[2024-07-14 12:47] LABS: Creatinine, Urine 15.12 mg/dL (30.0-125.0)
[2024-07-14 12:50] LABS: Micro Albumin < 3.0 mg/L (<30.0)
[2024-07-14 13:04] LABS: Microalb/Creat Ratio, Urine < 3.0
== END | disposition home or self-care (01) ==
LOC: LAB 10:18
PROVIDERS: ATTEND Student in an Organized Health Care Education/Training Program
DX: E11.21 Type 2 diabetes mellitus with diabetic nephropathy (principal); E21.3 Hyperparathyroidism, unspecified; N18.30 Chronic kidney disease, stage 3 unspecified; D63.1 Anemia in chronic kidney disease; N39.0 Urinary tract infection, site not specified; R80.9 Proteinuria, unspecified; M10.9 Gout, unspecified; E55.9 Vitamin D deficiency, unspecified
CPT/HCPCS: 36415; 80053; 82043; 82306; 82570; 83735; 84100; 84550; 85025

== ENCOUNTER → 2025-02-21 | Outpatient (CLI) | payer OTHER ==
[2025-02-21 11:01] LABS: Basophils # (auto) 0 10 ^3/uL (0-0.2); Basophils % (auto) 0.6 % (0.0-2.0); Eosinophils # (auto) 0.1 10 ^3/uL (0-0.8); Eosinophils % (auto) 1.3 % (0.0-7.0); Hematocrit 40.5 % (36.0-46.0); Hemoglobin 13.9 g/dL (12.2-16.2); Lymphocytes % (auto) 15.4 % (10.0-50.0); Mean Corpuscular Hemoglobin 33.8 pg (28.0-32.0); Mean Corpuscular Hgb Conc. 34.4 g/dL (32.0-36.0); Mean Corpuscular Volume 98.1 fL (80.0-100.0); Monocytes # (auto) 0.5 10 ^3/uL (0-1.3); Monocytes % (auto) 7.2 % (0.0-12.0); Neutrophils # (auto) 4.8 10 ^3/uL (1.6-8.6); Neutrophils % (auto) 75.5 % (37.0-80.0); Nucleated Red Blood Cells % 0.1 %; Platelet Count (auto) 196 10^3/uL (140-450); Red Blood Cells 4.13 10^6/uL (4.0-5.20); Red Cell Distribution Width 13.1 % (11.8-14.3); White Blood Cell 6.4 10^3/uL (4.4-10.8)
[2025-02-21 11:23] LABS: Alanine Aminotransferase 22 U/L (7-40); Albumin 4.4 g/dL (3.2-4.8); Alkaline Phosphatase 87 U/L (46-116); Anion Gap 6 (5-15); Aspartate Aminotransferase 17 U/L (13-40); Blood Urea Nitrogen 14 mg/dL (9-23); Calcium 10.4 mg/dL (8.7-10.4); Carbon Dioxide 28 mmol/L (20-31); Chloride 108 mmol/L (98-107); Glucose 75 mg/dL (74-106); Potassium 4.2 mmol/L (3.5-5.1); Sodium 142 mmol/L (136-145); Total Protein 6.8 g/dL (5.7-8.2)
[2025-02-21 11:24] LABS: Bilirubin, Total 0.4 mg/dL (0.2-1.0)
[2025-02-21 11:25] LABS: BUN/Creatinine Ratio 13.2 (10.0-20.0)
[2025-02-21 11:28] LABS: Urine Blood Negative /uL (Negative); Urine Clarity Clear (Clear); Urine Color Yellow (Yellow); Urine Protein, UAD Negative (Negative); Urine Specific Gravity 1.019 (1.001-1.035); Urine Urobilinogen Normal (Negative); Urine pH 6.5 (5.0-9.0)
[2025-02-21 11:37] LABS: Creatinine, Urine 134.02 mg/dL (30.0-125.0); Urine Protein/Creatinine Ratio 0.13
[2025-02-21 11:38] LABS: Erythrocyte Sedimentation Rate 10 mm/hr (0-20)
== END | disposition home or self-care (01) ==
LOC: LAB 10:31
PROVIDERS: ATTEND Student in an Organized Health Care Education/Training Program
DX: E11.22 Type 2 diabetes mellitus with diabetic chronic kidney disease (principal); N18.30 Chronic kidney disease, stage 3 unspecified; N39.0 Urinary tract infection, site not specified; R80.9 Proteinuria, unspecified; D63.1 Anemia in chronic kidney disease; E21.3 Hyperparathyroidism, unspecified; M10.9 Gout, unspecified; E55.9 Vitamin D deficiency, unspecified
CPT/HCPCS: 36415; 80053; 81003; 82570; 84156; 85025; 85652

== ENCOUNTER 2025-04-16 07:44 | Outpatient (CLI) | payer OTHER ==
[~2025-04-16] VITALS: Ht 172.7 cm; Wt 67.1 kg
[2025-04-16] MEDS ORDERED: REGADENOSON 0.4 MG/5 ML SYRG IV ONE ×2 (08:00→08:15)
[2025-04-16] MEDS: REGADENOSON 0.4 MG/5 ML SYRG IV ONE ×2 (10:30→10:32)
--- NOTE | 2025-04-23 08:46 | DVHSR ---
APPROVED REPORT Exam: Nuclear Stress Test Indication: cardiac clearance BMI: 0 Medical History Medical History: spondylolisthesis, HTN, CKD, HLD, EF 60% Stress Test Details Stress Test: Pharmacologic stress testing performed using 0.4 mg of regadenoson per 5 mL given IV ov er 10 seconds. HR Resting HR: 46 bpmMax Heart Rate (APMHR): 148.022468 bpm Max HR Achieved: 70 bpmTarget HR (85% APMHR): 125.367886 bpm % of APMHR: 47.30 Recovery HR: 54 bpm BP Resting BP: 144/77 mmHg Recovery BP: 132/78 mmHg ECG Resting ECG: Sinus Bradycardia Clinical Reason for Termination: Completed protocol Stress ECG Conclusion lvef 70% normal perfusion imaging no major ischemai noted NM EXAM: Myocardial Perfusion REST/STRESS Imaging Protocol: Rest Tc-99m/Stress Tc-99m 1 day Resting Data Rest SPECT myocardial perfusion imaging was performed in supine position 75 minutes following the int ravenous injection of 10.9 mCi of Tc-99m Sestamibi. Time of rest injection: 0815 Time of rest imagin Administration Route: IV Administration Site: Left Hand Pharmacologic Stress Pharmacologic stress test was performed by injecting Regadenoson 0.4 mg IV push followed by the intra venous injection of 33.1 mCi of Tc-99m Sestamibi. Time of stress injection: 1020 Time of stress imagin Administration Route: IV Administration Site: Left Hand Gated Stress SPECT was performed 70 minutes after stress injection. The images were gated to evaluate regional wall motion and calculate left ventricular ejection fracti on. Nuclear Conclusion lvef 70% normal perfusion imaging no major ischemai noted
== END 2025-04-16 17:00 | disposition home or self-care (01) ==
LOC: XYW 07:44
PROVIDERS: ATTEND Student in an Organized Health Care Education/Training Program
DX: Z01.810 Encounter for preprocedural cardiovascular examination (principal); R00.1 Bradycardia, unspecified; I12.9 Hypertensive chronic kidney disease with stage 1 through stage 4 chronic kidney disease, or unspecified chronic kidney disease; N18.31 Chronic kidney disease, stage 3a; M43.16 Spondylolisthesis, lumbar region; E78.5 Hyperlipidemia, unspecified; R94.31 Abnormal electrocardiogram [ECG] [EKG]
CPT/HCPCS: 78452; 93017; A9500; J2785

== ENCOUNTER 2025-05-07 10:25 | Emergency (ER) | payer OTHER ==
[~2025-05-07] VITALS: Ht 172.7 cm; Wt 67.0 kg
--- NOTE | 2025-05-07 11:08 | ED.PDOC ---
GI ASSESSMENT HPI Comments This is a 74 year old female presenting to the ED with chief complaint of abdominal pain. Patient reports that she has been experiencing RUQ abdominal pain with associated nausea, vomiting, and constipation for the past 4 days. Patient relays that her last bowel movement was yesterday after using an enema. Patient states that she has history of SBO back in 2020, worried due to her symptoms as of now being similar to what she had before. Patient denies any diarrhea, fever, chills, chest pain, SOB, hematemesis, or melena. Chief Complaint: Nausea/Vomiting Time Seen by MD: 11:06 Primary Care Provider: Irais NEWTON Reviewed Notes: Nurses Notes, Medications, Allergies Allergies: Coded Allergies: NO KNOWN ALLERGIES (Unverified , 04/16/25) Home Meds No Active Prescriptions or Reported Meds Information Source: Patient Mode of Arrival: Ambulatory Timing: Days Duration: Since onset Prehospital treatment: None Quality: Aching Vomitus: Watery Stool: Impaction Severity: Moderate Recent: None Recent Hx of: None Pain Location: RUQ Associated sign and symptoms: Nausea, Vomiting, Constipation, Abdominal Pain Past Medical History PAST MEDICAL HISTORY: CKF, High Lipids, HTN Past Medical History (Other): SBO x 2020 Surgical History: Hysterectomy 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: No Pertinent 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 Family History Family History: Unknown Social History Smoker: Quit Less Than 1 Year, Cigarettes Alcohol: Denies ETOH Use Drugs: Denies Drug Use Lives In: Home Constitutional: denies: chills, diaphoresis, fatigue, fever, malaise, sweats, weakness, others EENTM: denies: blurred vision, double vision, ear bleeding, ear discharge, ear drainage, ear pain, ear ringing, eye pain, eye redness, hearing loss, mouth pain, mouth swelling, nasal discharge, nose bleeding, nose congestion, nose pain, photophobia, tearing, throat pain, throat swelling, voice changes, others Respiratory: denies: cough, hemoptysis, orthopnea, SOB at rest, shortness of breath, SOB with excertion, stridor, wheezing, others Cardiovascular: denies: chest pain, dizzy spells, diaphoresis, Dyspnea on exertion, edema, irregular heart beat, left arm pain, lightheadedness, palpitations, PND, syncope, others Gastrointestinal: reports: abdominal pain, nausea, vomiting; denies: abdomen distended, blood streaked bowels, constipated, diarrhea, dysphagia, difficulty swallowing, hematemesis, melena, poor appetite, poor fluid intake, rectal bleeding, rectal pain, others Genitourinary: denies: abnormal vagina bleeding, burning, dyspareunia, dysuria, flank pain, frequency, hematuria, incontinence, pain, , vagina discharge, urgency, others Neurological: denies: dizziness, fainting, headache, left sided numbness, left sided weakness, numbness, paresthesia, pre-existing deficit, right sided numbness, right sided weakness, seizure, speech problems, tingling, tremors, weakness, others Musculoskeletal: denies: back pain, gout, joint pain, joint swelling, muscle pain, muscle stiffness, neck pain, others Integumetry: denies: bruises, change in color, change in hair/nails, dryness, laceration, lesions, lumps, rash, wounds, others Allergic/Immunocompromised: denies: Difficulty Healing, Frequent Infections, Hives, Itching, others Hematologic/Lymphatic: denies: anemia, blood clots, easy bleeding, easy bruising, swollen glands, others Endocrine: denies: excessive hunger, excessive sweating, excessive thirst, excessive urination, flushing, intolerance to cold, intolerance to heat, unexplained weight gain, unexplained weight loss, others Psychiatric: denies: anxiety, bipolar disorder, depression, hopeless, panic disorder, schizophrenia, sleepless, suicidal, others All Other Systems: Reviewed and Negative Physical Exam General Appearance: Moderate Distress, Normal HEENT: Normal ENT Inspection, Pharynx Normal, TMs Normal Neck: Full Range of Motion, Non-Tender, Normal, Normal Inspection Respiratory: Chest Non-Tender, Lungs Clear, No Accessory Muscle Use, No Respira tory Distress, Normal Breath Sounds Cardiovascular: No Edema, No JVD, No Murmur, No Gallop, Normal Peripheral Pulses, Regular Rate/Rhythm Breast Exam: Deferred Gastrointestinal: No Organomegaly, Non Tender, No Pulsatile Mass, Normal Bowel Sounds, Soft Genitalia: Deferred Pelvic: Deferred Rectal: Deferred Extremities: No calf tenderness, Normal capillary refill, Normal inspection, Normal range of motion, Non-tender, No pedal edema Musculoskeletal : Apperance: Normal Neurologic: Alert, stucco mason II-XII nml as Tested, No Motor Deficits, Normal Affect, Normal Mood, No Sensory Deficits Cerebellar Function: NOT DONE Reflexes: NOT DONE Skin: Dry, Normal Color, Warm Peripheral Pulses: 3+ Radial (R), 3+ Radial (L) Lymphatic: No Adenopathy Was a procedure done? Was a procedure done?: No GI differential Dx Differential Diagnosis: Constipation, Diverticular disease, Esophagitis, Gastritis/PUD, Gastroenteritis X-Ray, Labs, Meds, VS Vital Signs Date Time Temp Pulse Resp B/P (MAP) Pulse Ox O2 Delivery O2 Flow Rate FiO2 05/07/25 10:26 98.4 63 15 136/52 97 98.4 Lab Test 05/07/25 11:28 05/07/25 10:00 Range/Units White Blood Count 6.6 4.4-10.8 10^3/uL Red Blood Count 4.31 4.0-5.20 10^6/uL Hemoglobin 14.8 12.2-16.2 g/dL Hematocrit 42.4 36.0-46.0 % Mean Corpuscular Volume 98.3 80.0-100.0 fL Mean Corpuscular Hemoglobin 34.3 H 28.0-32.0 pg Mean Corpuscular Hemoglobin Concent 34.9 32.0-36.0 g/dL Red Cell Distribution Width 13.6 11.8-14.3 % Platelet Count 203 140-450 10^3/uL Mean Platelet Volume 7.4 6.9-10.8 fL Neutrophils (%) (Auto) 73.7 37.0-80.0 % Lymphocytes (%) (Auto) 14.3 10.0-50.0 % Monocytes (%) (Auto) 9.0 0.0-12.0 % Eosinophils (%) (Auto) 2.0 0.0-7.0 % Basophils (%) (Auto) 1.0 0.0-2.0 % Neutrophils # (Auto) 4.9 1.6-8.6 10 ^3/uL Lymphocytes # (Auto) 0.9 0.4-5.4 10 ^3/uL Monocytes # (Auto) 0.6 0-1.3 10 ^3/uL Eosinophils # (Auto) 0.1 0-0.8 10 ^3/uL Basophils # (Auto) 0.1 0-0.2 10 ^3/uL Nucleated Red Blood Cells 0.0 % Sodium Level 144 136-145 mmol/L Potassium Level 3.5 3.5-5.1 mmol/L Chloride Level 108 H 98-107 mmol/L Carbon Dioxide Level 28 20-31 mmol/L Anion Gap 8 5-15 Blood Urea Nitrogen 11 9-23 mg/dL Creatinine 1.04 H 0.550-1.02 mg/dL Glomerular Filtration Rate Calc 57 >90 mL/min BUN/Creatinine Ratio 10.6 10.0-20.0 Serum Glucose 74 74-106 mg/dL Calcium Level 9.9 8.7-10.4 mg/dL Urine Color Light-yellow Yellow Urine Clarity Clear Clear Urine pH 6.0 5.0-9.0 Urine Specific Sloan 1.008 1.001-1.035 Urine Protein Negative Negative Urine Ketones Negative Negative Urine Blood Negative Negative /uL Urine Nitrite Negative Negative Urine Bilirubin Negative Negative Urine Urobilinogen Normal Negative mg/dL Urine Leukocyte Esterase Negative Negative /uL Urine RBC <1 0 - 4 /hpf Urine Microscopic WBC 1 0-5 /HPF Urine Squamous Epithelial Cells Few <5 /hpf Urine Bacteria None seen None Seen /hpf Urine Glucose Normal Normal mg/dL Patient alert. Complaining of abdominal pain. Vitals stable. Answering all questions. WBC within normal limits. Hemoglobin within normal limits. Abdomen is soft nontender. No sign of any distress. No acute process. CT scan of the abdomen reviewed does show enteritis. Was given prescription of Flagyl antibiotic. Explained to the patient. Was told to follow up with her primary care physician. Was told to come back if there is any problem. Time of 1ST Reevaluation: 12:05 Reevaluation 1ST: Unchanged Patient Education/Counseling: Diagnosis, Treatment Family Education/Counseling: No Family Present SEPSIS Sepsis Screen Date sepsis recognized/suspect: May 07, 2025 Time Sepsis recognized/suspect: 1031 Recent Procedure: No On Antibiotic Therapy: No Respiratory Rate >20: No Heart Rate >90: No Temp<36 C (96.8 F) or >38.3 C: No SBP <90 or MAP <65 mmHG: No New Acute Mental Status Change: No Is the patient on CPAP, BIPAP,: No Physician Orders Ct Ab Pel Wo Con-No Oral Or Iv (05/07/25 11:52) Vital Signs Date Time Temp Pulse Resp B/P (MAP) Pulse Ox O2 Delivery O2 Flow Rate FiO2 05/07/25 10:26 98.4 63 15 136/52 97 98.4 Laboratory Tests Test 05/07/25 11:28 White Blood Count 6.6 10^3/uL (4.4-10.8) Departure 1 Departure Time of Disposition: 11:52 Impression: Primary Impression: Enteritis Disposition: 01 HOME / SELF CARE / HOMELESS Condition: Good e-Prescriptions Metronidazole (Flagyl) 500 Mg Tab 1 TAB PO TID for 7 Days, #21 TAB Prov: TEJ HILL MD 05/07/25 Discharged With: Self Critical Care Note Critical Care Time?: No Stability Stability form required: No Heart Score Heart Score: Heart Score Response (Comments) Value History N/A 0 EKG N/A 0 Age N/A 0 Risk Factors N/A 0 Troponin N/A 0 Total 0 I personally scribed for TEJ HILL MD ([email or web address]) on 05/07/25 at 11:08. Electronically submitted by Saqib Lewis ([email or web address]). TEJ HILL MD May 07, 2025 11:08
[2025-05-07 11:40] LABS: Hematocrit 42.4 % (36.0-46.0); Hemoglobin 14.8 g/dL (12.2-16.2); Mean Corpuscular Hemoglobin 34.3 pg (28.0-32.0); Mean Corpuscular Volume 98.3 fL (80.0-100.0); Nucleated Red Blood Cells % 0.0 %
[2025-05-07 11:49] LABS: Potassium 3.5 mmol/L (3.5-5.1); Sodium 144 mmol/L (136-145)
[2025-05-07 11:50] LABS: Anion Gap 8 (5-15); Carbon Dioxide 28 mmol/L (20-31)
[2025-05-07 11:51] LABS: Calcium 9.9 mg/dL (8.7-10.4); Chloride 108 mmol/L (98-107)
[2025-05-07 11:55] LABS: BUN/Creatinine Ratio 10.6 (10.0-20.0); Blood Urea Nitrogen 11 mg/dL (9-23)
[2025-05-07 11:56] LABS: Urine Protein, UAD Negative (Negative)
[2025-05-07 11:57] LABS: Glucose 74 mg/dL (74-106)
--- NOTE | 2025-05-07 12:35 | DVH ---
Exam: CT CT AB PEL WO CON-NO ORAL OR IV History: sbo Comparison Study: KUB ABDOMEN SINGLE VIEW on DOS: 07/26/21 Technique: Multidetector spiral CT of the abdomen and pelvis was performed from lung bases to pubic s ymphysis. Imaging was performed without intravenous contrast. Coronal and sagittal multiplanar reform ats were obtained from the axial data set by the technologist. Radiation Dose : 1. Abdomen/Pelvis: CTDIvol 8.08 mGy, DLP 421.7 mGy*cm. Findings: Evaluation of vasculature and solid organs is limited due to lack of intravenous contrast use. Lung Bases: Lung bases are clear. Coronary artery calcifications. Normal heart size. No pericardial effusion. Liver: The liver is normal in size. No focal lesions. Gallbladder and Biliary Tree: The gallbladder contains sludge. No intrahepatic or extrahepatic bilia ry ductal dilatation. Spleen: Unremarkable Pancreas: The pancreas is grossly unremarkable. Adrenal Glands: Unremarkable Kidneys: Kidneys are unremarkable without calculi or hydronephrosis. GI tract: The stomach is grossly normal in appearance. Fluid-filled small bowel loops. No transition point noted. Colonic diverticulosis without acute diverticulitis. Normal appendix. Peritoneum/mesentery/retroperitoneum. No evidence of free intraperitoneal air. No ascites. No evidenc e of suspicious lymphadenopathy. Abdominal Wall: Unremarkable. Vasculature: Tortuous and ectatic descending thoracic aorta and abdominal. Atherosclerotic calcifica tions in the abdominal aorta and its branches. Urinary Bladder: Distended. Pelvic Organs: Unremarkable Musculoskeletal: No aggressive focal bony lesions, acute fractures or dislocation. Grade 1 anterolist hesis at L4-L5. IMPRESSION: 1. Fluid-filled small bowel loops without a transition point, may represent enteritis. No evidence t o suggest small bowel obstruction. 2. Sludge in the gallbladder. 3. Distended urinary bladder.
[2025-05-07] MEDS ORDERED: METR-344 PO (13:17)
[2025-05-07 14:26] VITALS: BP 141/94; PULSE 59; RESP 12; TEMP 97.7; O2SAT 98
== END 2025-05-07 14:26 | disposition home or self-care (01) ==
LOC: ER 10:25
DX: K52.9 Noninfective gastroenteritis and colitis, unspecified (principal); I10 Essential (primary) hypertension; Z90.710 Acquired absence of both cervix and uterus
CPT/HCPCS: 36415; 74176; 80048; 81001; 85025

== ENCOUNTER 2025-06-19 06:07 | Inpatient (IN) | payer OTHER ==
[2025-06-15 10:49] LABS: Hematocrit 42.7 % (36.0-46.0); Hemoglobin 14.7 g/dL (12.2-16.2); Mean Corpuscular Hemoglobin 33.8 pg (28.0-32.0); Mean Corpuscular Volume 98.0 fL (80.0-100.0); Nucleated Red Blood Cells % 0.0 %
[2025-06-15 10:57] LABS: Urine Protein, UAD Negative (Negative)
[2025-06-15 11:07] LABS: INR 0.99 (0.9-1.15); Partial Thromboplastin Time 28.5 SEC (24.5-34.5); Prothrombin Time 10.5 sec (9.3-11.8)
[2025-06-15 11:10] LABS: Alanine Aminotransferase 17 U/L (7-40); Albumin 4.6 g/dL (3.2-4.8); Alkaline Phosphatase 96 U/L (46-116); Anion Gap 7 (5-15); BUN/Creatinine Ratio 13.5 (10.0-20.0); Blood Urea Nitrogen 15 mg/dL (9-23); Calcium 9.8 mg/dL (8.7-10.4); Carbon Dioxide 27 mmol/L (20-31); Sodium 143 mmol/L (136-145); Total Protein 7.4 g/dL (5.7-8.2)
[2025-06-15 11:11] LABS: Bilirubin, Total 0.5 mg/dL (0.2-1.0)
[2025-06-15 11:14] LABS: Chloride 109 mmol/L (98-107); Glucose 67 mg/dL (74-106); Potassium 3.4 mmol/L (3.5-5.1)
[~2025-06-19] VITALS: Ht 172.7 cm; Wt 70.3 kg
[~2025-06-19 06:07] MED LIST: ACE650RS PR; AMLO1TAB23 PO; ASPI81CH59 PO; ATOR10TA PO; CYAN-17 PO; DICL50TA4 PO; DOCU100T7 PO; ESTR1TAB7 TOP; GABA-1250 PO; HYDR-3682 PO; HYDR200T36 PO; LISI20TA56 PO; MAGN400T40 OR; MELA3TAB27 PO; OMEP20TA PO; VITA1CAP PO; [UNRECOGNIZED DRUG - CODE] PO
[2025-06-19] MEDS ORDERED: fentaNYL CITRATE 100 MCG/2 ML VL ONE (07:18)
[2025-06-19] MEDS ORDERED: MIDAZOLAM HCL 2MG/2ML 2ml VIAL (1mg/ml) ONE (07:18)
[2025-06-19] MEDS ORDERED: ROCURONIUM 10MG/ML 10ML VIAL IV ONE (07:19)
[2025-06-19] MEDS ORDERED: METOCLOPRAMIDE HCL 5MG/ml INJ 2ml VIAL ONE (07:19)
[2025-06-19] MEDS ORDERED: ONDANSETRON HCL 4 MG/2 ML VIAL ONE (07:19)
[2025-06-19] MEDS ORDERED: LIDOCAINE 1% INJ PF 5ML AMP ONE (07:19)
[2025-06-19] MEDS ORDERED: PROPOFOL 10 MG/ML 20 ML IV ONE ×2 (07:19→09:02)
--- NOTE | 2025-06-19 07:41 | DVHHP2 ---
History Allergies: Coded Allergies: NO KNOWN ALLERGIES (Unverified , 04/16/25) Chief Complaint: Low back pain, right toes curling over, right foot becoming weak when she ambulates. Patient is experiencing bilateral numbness tingling and pins and needles to bilateral lower extremities. History of L5 laminectomy [place] [address] MANZO [facility] Present Illness(Onset/Duration Patient initially had a L5 laminectomy in 1991, patient arrives today for elective spine surgery with Dr Yaw Reyes lumbar 3-5 posterior spinal dec ompression and fusion with L3-4, L4-5 posterior spinal interbody fusion Noncontributory to this case Past Surgical History: Other (Patient has had a hysterectomy which cause fibroids to create a bowel obstruction causing her to have bowel surgery, patient has had a L5 laminectomy in 1991) Exam Exam General Appearance: None, Normal HEENT: Normal ENT Inspection Neck: Non-Tender, Normal, Normal Inspection Respiratory: No Accessory Muscle Use, None, No Respiratory Distress Cardiovascular: No Edema, No JVD Gastrointestinal: Other (No complaints of nausea vomiting or diarrhea) Extremities: Normal capillary refill, Normal inspection (Patient states she feels her legs look blue however is not apparent to this technical writer and editor's I), Normal range of motion (Patient does state as she gets occasional numbness tingling to bilateral lower legs, right foot weakness with ambulation) Neurologic: Alert, No Motor Deficits Cerebellar Function: Other (Patient states she has difficulty ambulating due to right foot weakness) Reflexes: Normal Plan Additional comments: Patient arrived for elective spine surgery with Dr Yaw Reyes lumbar 3-5 posterior spinal decompression and fusion with L3-4, L4-5 posterior spinal interbody fusion Patient understands that the goals to discharge are that the patient is eating eating without nausea. drinking fluids without coughing or choking, voiding clear yellow urine, passing gas or having a bowel movement, ambulating safely with or without assistive devices, and patient is able to control pain with oral analgesia only. The risks/benefits/alternatives of surgery were explained to the patient in detail including but not limited to , stroke, paralysis, myocardial infarction, bleeding, infection, complications of anesthesia (dry mouth, sore throat, dental damage, respiratory depression, blindness), postoperative i nfection, incomplete relief of symptoms, recurrence of symptoms, damage to blood vessels, nerves and tendons, pulmonary embolism and possible need for repeat surgery in the future. Pain, damage to surrounding soft tissue structures, need for reoperation or future surgery, persistent pain/disability/deformity, bone graft collapse or extrusion of interbody device, instrumentation failure, need for instrumentation removal, dural tear, temporary or permanent nerve root damage, deep vein thrombosis, pulmonary embolism, were described to the patient in detail and the patient wishes to proceed. No guarantee of surgical outcome/improvement was implied. All of the questions were answered thoroughly and consents were obtained. Call with questions Vandana Rodriguez [facility] Orthopaedic Spine Surgery nurse practitioner For Dr Salima Reyes Patient was examined, chart reviewed, labs evaluated, and diagnostic studies and findings analyzed. Case was discussed with Dr. Yaw Reyes who formulated the plan of care. This medical document was created using an electronic medical record system with [employer] dictation system. Although this document has been carefully reviewed, there might still be some phonetic and typographical errors. These areas are purely typographical due to imperfections of the software programs, and do not reflect any compromise in the patient's medical care. MISHEL RODRIGUEZ NP Jun 19, 2025 07:41
[2025-06-19] MEDS ORDERED: SODIUM CHLORIDE LOCK 10 ML ONE (08:49)
[2025-06-19] MEDS ORDERED: fentaNYL CITRATE 5 ML ONE (08:57)
[2025-06-19] MEDS ORDERED: PATIENTS OWN MEDICATION (Hydroxyzine Hcl 25 MG) PO PRN (09:15)
[2025-06-19] MEDS ORDERED: ACETAMINOPHEN 325 MG TAB PO PRN (09:15)
[2025-06-19] MEDS ORDERED: NITROGLYCERIN 0.4 MG SL TAB SL PRN (09:15)
[2025-06-19] MEDS ORDERED: MORPHINE SULFATE INJ 2 MG/ml SYRG IV PRN (09:15)
[2025-06-19] MEDS ORDERED: ONDANSETRON HCL 4 MG/2 ML VIAL IV PRN ×2 (09:15→12:15)
--- NOTE | 2025-06-19 09:16 | DVHOP2 ---
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 These include but are not limited to complications of anesthesia, postoperative infection, incomplete relief of symptoms, recurrence of symptoms, damage to b lood vessels, nerves and tendons, deep venous thrombosis, pulmonary embolism and possible need for repeat surgery in the future. Name of Procedure Performed see detailed note Procedure Details Procedure Details: Pre-op Diagnosis: 1. 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 Lumbar 4/5 grade 2 spondylolisthesis causing severe foraminal and central canal stenosis Post-op Diagnosis:same as pre op Procedure: Lumbar 5 revision laminotomies/ foraminotomies and facetectomies to decompress central canal and Lumbar 5 nerve roots Revision lumbar 5/Sacral 1 discectomy to decompress central canal and bilateral L5/S1 foramen Lumbar 4 laminectomy with Lumbar 4 foraminotomies and facetectomies to decompress central canal and Lumbar 4 nerve roots Lumbar 3 laminectomy with Lumbar 3 foraminotomies and facetectomies to decompress central canal and Lumbar 4 nerve roots Lumbar 4 to 5 posterior spinal interbody fusion with PEEK cage Lumbar to 5 posterior spinal instrumentation with pedicle screws Local Bone Autograft For Fusion Allograft Bone to augment Fusion Use of Demineralized Bone Matrix to Augment Fusion Microscope For Microdissection Surgeon: Yaw Reyes MD Assist: LUIS A Sargent Anesthesia: General Fluids and EBL: See anesthesia note Patient was seen in the Pre Anesthesia Care Unit (PACU) and the operative site was initialed by me. All questions were answered to the patients satisfaction and chart reviewed. The patient was taken to the operative room where pre- operative antibiotics were given 30 minutes prior to incision. General anesthesia was induced and neuro-monitoring leads placed. Thomas catheter was placed. The patient was turned prone onto the [facility] spinal table. While positioning, I made sure that the belly was free to allow proper expansion of the lungs. The hips were extended and all bony prominences padded. The shoulders were abducted 80 degree and the elbows flexed 100 degrees with no tension on the brachial plexus. I check the foot arterial pulses and they were palpable. The patient was prepped and draped and time out was taken at this time per usual protocol. At this time, the C-arm fluoroscope was brought in and was used to lynda the incision borders proximally and distally. We centered the incision over the old incision and extended it proximally and distally by about 1 to 2 inches. Using a Number 10 Blade, an incision was made extending it proximally and distally per C arm lynda from the posterior spinous process of lumbar 4,5 and sacral i down to the lumbo-dorsal fascia. All bleeding was controlled with electrocautery. Due the the prior surgery, there was a lot of scarring over the L5 lamina, particularly over the left side. I had to be exceedingly careful with the dissection to avoid causing a durotomy with the fact that there was a prior surgery at this site. Self-retaining retractors were placed. Electrocautery was then used to take down the lumbo-dorsal fascia, to free the muscle off the bone bilaterally. A Marlena retractor was placed over the posterior spinous process proximally and a lateral C-arm fluoroscope image was taken to insure we were at the correct level. Next, using bovie electro cautery, The deep fascia laterally to the facet joints was removed to expose the transverse processes of lumbar 4 and 5 while taking care to avoid injuring the facet capsule at the proximal end of the incision. Next, the microscope was bought in for visualization and using a Luxell rongeur, the posterior spinous process of lumbar 3 and 4 and 5 bone were removed and the bone was saved for use as local autograft. I used alternating Kerison 2 mm and 3 mm rongeurs to perform central laminectomies lumbar 4 and 3 to decompress the central canal. Next using alternating Kerison 2mm and 3 mm rongeurs, the superior articular facets of lumbar 4 and 5 were removed bilaterally to decompress the lateral recess (facetectomies) and then extended proximally to decompress the foramen bilaterally (foraminotomies). It was particularly difficult to remove the residual lamina of lumbar 5 over the site of the previous surgery but we were successful. WE used [place] number 4 retractor and curved curettes and burnette ball kooks to free up the epidural fibrosis from the dura until we saw the large disc herniation on the left side at L5/S1. I was recurrent since she had a prior surgery at this site. I sued an 11 blade scalpel to remove the annulus and I was able to debulk the herniated disc until both lumbar 5 nerve roots were free and able to migrate medially and laterally by 5mm without trouble. I used a ball tipped nerve probed to insure that the respective nerve roots were able to be mobilized 5mm in each direction were unimpeded in the lateral recess and foramen. Next I carefully inspected the dura to make sure no durotomy was visible and it was not. I retracted the right lumbar 5 nerve medially and used increasing size maliha until the proper size prepared and then inserted a 8X28mm PEEK cage in to the disc space at L4/5 using C arm fluoroscopy a [id number] PEEK cage was placed I covered the exposed dura with gelfoam soaked in thrombin and the microscope was wheeled away from the operative filed. The C-arm fluoroscope was brought in and perfect AP views of the lumbar 4 and 5 pedicles were obtained. I placed bilateral pedicle screws at these levels by: using a Lenke awl to make a harbor pilot hole, then a ball tip robe to make sure there was no pedicle breach, then a tap to prepare the track and a 6.5 mm diameter 45 mm length pedicle screw was placed bilaterally. This step to place bilateral pedicle screws was repeated up to the lumbar 4 and 5 level. Next, the c-arm fluoroscope took an AP and lateral x-ray to ensure proper placement of the pedicle screws. Next, the neuro-stimulation probe was placed over the tip of each screw and each screw stimulated only after a current greater than 10 mA was delivered to the screw. Next , I took a Midas Hari Drill to decorticate the transverse process which were exposed and local bone graft, Bacterin allograft bone substitute and Demineralized bone matrix were placed along the inter transverse process intervals bilaterally (the fusion bed). Next a curved vani sized to fit the pedicle screw interval was placed and secured to each pedicle screw using set screws, The set screws were tightened using a torque screwdriver (set to 10 N*M torque) to secure the vani to the pedicle screws bilaterally. Final AP and lateral C arm fluoroscopic films were taken at this time. Next a 10 [place] diameter Hemovac drain was laced deep to the lumbo- dorsal fascia. The lumbo-dorsal fascia was closed with interrupted 0-Vicryl sutures. The subcutaneous tissue was closed with interrupted 2-0 Vicryl sutures. The skin was closed with running 2-0 nylon suture. Sterile dressings were place. The pt. was turned supine onto the stretcher, extubated and taken to the recovery room in stable condition. Condition Stable Disposition Still a Patient YAW REYES MD Jun 19, 2025 09:16
[2025-06-19] MEDS ORDERED: hydrOXYzine 25 MG TAB or CAP PO PRN (10:00)
[2025-06-19] MEDS ORDERED: LISINOPRIL 20 MG TAB PO SCH (10:00)
[2025-06-19] MEDS ORDERED: SUGAMMADEX 200mg/2ml Vial (100MG/ML) IV ONE (10:28)
[2025-06-19 11:58] VITALS: RESP 12; O2SAT 99
[2025-06-19] MEDS ORDERED: HYDROmorphone HCL 2 MG/ML VL/or syr IV PRN (12:15)
[2025-06-19 14:30] VITALS: BP 127/81; PULSE 62; RESP 18; TEMP 98; O2SAT 99
[2025-06-19] MEDS: GABAPENTIN 300 MG CAP PO SCH (15:13)
[2025-06-19] MEDS: ceFAZolin 1GM/50ML 50 ML IV SCH (15:13)
[2025-06-19] MEDS: CYCLOBENZAPRINE HCL 10 MG TAB PO SCH (15:13)
[2025-06-19] MEDS: MORPHINE SULFATE INJ 2 MG/ml SYRG IV PRN (16:03)
[2025-06-19 16:33] VITALS: BP 131/79; PULSE 60; RESP 18; TEMP 96.8; O2SAT 100
--- NOTE | 2025-06-19 17:23 | DVH ---
C-ARM FLUOROSCOPY: PROCEDURE: Discectomy and fusion lumbar spine FLUOROSCOPY TIME: 86.8 seconds DAP: 54.22 mgy FINDINGS: Spot intraoperative C arm radiographs demonstrating see operative note. IMPRESSION: 1. Please refer to surgical report for detailed findings.
--- NOTE | 2025-06-19 17:47 | DVHINCON2 ---
Date Seen: Jun 19, [address] SELLERS Allergies: Coded Allergies: NO KNOWN ALLERGIES (Unverified , 04/16/25) Home Meds Reported Medications Estradiol (Gynodiol) 1 Mg Tab, 0.025 MG TOP QWEEKLY, TAB 06/15/25 Melatonin (KP MELATONIN) 3 Mg Tab, 10 MG PO QPM, TAB 06/15/25 Hydroxyzine Hcl (Hydroxyzine Hcl) 25 Mg Tab, 25 MG PO QPM PRN for prn, TAB 06/15/25 Vitamin D & K (D3 + K2 125-100 Mcg) 1 Cap Cap, 1 CAP PO, CAP 06/15/25 Levocetirizine Dihydrochloride (LEVOCETIRIZINE DIHYDROCHL) 2.5 Mg/5 Ml Melissa, 5 MG PO, ML 06/15/25 Omeprazole (Gnp Omeprazole) 20 Mg Tab, 1 TAB PO PRN, #90 TAB 3 Refills 06/15/25 Diclofenac Sodium (Diclofenac Sodium Ec) 50 Mg Tab, 1 TAB PO BID, #60 TAB 06/15/25 Gabapentin (Gabapentin) 300 Mg Cap, 1 CAP PO TID, #90 CAP 3 Refills 06/15/25 Lisinopril (Lisinopril) 20 Mg Tab, 1 TAB PO BID, #90 TAB 3 Refills 06/15/25 Hydroxychloroquine Sulfate (Hydroxychloroquine Sulfat) 200 Mg Tab, 200 MG PO QPM, TAB 06/15/25 Amlodipine Besylate (Amlodipine Besylate) 10 Mg Tab, 1 TAB PO QPM, #90 TAB 3 Refills 06/15/25 Atorvastatin Calcium (Lipitor) 10 Mg Tab, 1 TAB PO QPM, #90 TAB 3 Refills 06/15/25 Acetaminophen (Tylenol) 650 Mg Rc, 500 MG ME, SUPP.RECT 06/15/25 Aspirin (Aspirin Low Dose) 81 Mg Chw, 1 TAB PO DAILY, #90 TAB 3 Refills 06/15/25 Docusate Sodium (Stool Softener) 100 Mg Tab, 100 MG PO, TAB 06/15/25 Cyanocobalamin (B12) 1,000 Mcg Cap, 1000 MCG PO, CAP 06/15/25 Magnesium Oxide (MAGNESIUM OXIDE) 400 Mg Tab, 250 MG OR, TAB 06/15/25 Current Medications Current Medications Medications (Trade) Dose Ordered Sig/Diana Route PRN Reason Start Time Stop Time Status Last Admin Dextrose/Sodium Chloride 1,000 ml @ 100 mls/hr Q10H IV 06/19/25 09:15 Ondansetron HCl (Zofran) 4 mg Q4HP PRN IV NAUSEA / VOMITING 06/19/25 09:15 Acetaminophen (Tylenol Tablet) 650 mg Q6HP PRN PO MILD PAIN (1-3 PAIN SCALE) 06/19/25 09:15 Acetaminophen/ Hydrocodone Bitart ([place] 10/325MG Tab) 1 tab Q6HP PRN PO MODERATE PAIN (4-6 PAIN SCALE) 06/19/25 09:15 Morphine Sulfate 1 mg Q4HP PRN IV SEVERE PAIN (7-10 PAIN SCALE) 06/19/25 09:15 06/19/25 16:03 Cyclobenzaprine HCl (Flexeril Tablet) 10 mg TID PO 06/19/25 14:00 06/19/25 15:13 Docusate Sodium (Colace Capsule) 100 mg BID PO 06/19/25 10:00 Cefazolin Sodium 50 ml @ 100 mls/hr Q8HR IV 06/19/25 14:00 06/19/25 15:13 Nitroglycerin (Ntrostat Sublingual) 0.4 mg Q5MINP PRN SL FOR CHEST PAIN 06/19/25 09:15 Morphine Sulfate 2 mg Q30M PRN IV FOR CHEST PAIN 06/19/25 09:15 Gabapentin (Neurontin Capsule) 300 mg TID PO 06/19/25 14:00 06/19/25 15:13 Hydroxychloroquine Sulfate (Plaquenil Tablet) 200 mg QPM PO 06/19/25 18:00 Lisinopril (Zestril Tablet) 20 mg BID PO 06/19/25 10:00 Patient Own Medication 1 tab QPM PO 06/19/25 18:00 UNV Patient Own Medication 25 mg QPM PRN PO prn 06/19/25 09:15 UNV Hydroxyzine Pamoate (Vistaril Oral) 25 mg QPM PO 06/19/25 18:00 06/19/25 09:58 DC Amlodipine Besylate (Norvasc Tablet) 10 mg QPM PO 06/19/25 18:00 Hydroxyzine Pamoate (Vistaril Oral) 25 mg QPM PRN PO ANXIETY 06/19/25 10:00 Ondansetron HCl (Zofran) 4 mg ONCE PRN IV NAUSEA / VOMITING 06/19/25 12:15 06/19/25 12:16 DC Hydromorphone HCl (Dilaudid Injection) 0.5 mg Q10M PRN IV SEVERE PAIN (7-10 PAIN SCALE) 06/19/25 12:15 06/19/25 12:56 DC Vital Signs Vital Signs Date Time Temp Pulse Resp B/P (MAP) Pulse Ox O2 Delivery O2 Flow Rate FiO2 06/19/25 16:33 96.8 60 18 131/79 (96) 100 96.8 06/19/25 15:28 Nasal Cannula* 2 28 Labs/Diagnostic Data Labs Test 06/15/25 10:32 Range/Units White Blood Count 6.6 4.4-10.8 10^3/uL Red Blood Count 4.36 4.0-5.20 10^6/uL Hemoglobin 14.7 12.2-16.2 g/dL Hematocrit 42.7 36.0-46.0 % Mean Corpuscular Volume 98.0 80.0-100.0 fL Mean Corpuscular Hemoglobin 33.8 H 28.0-32.0 pg Mean Corpuscular Hemoglobin Concent 34.5 32.0-36.0 g/dL Red Cell Distribution Width 12.8 11.8-14.3 % Platelet Count 203 140-450 10^3/uL Mean Platelet Volume 7.6 6.9-10.8 fL Neutrophils (%) (Auto) 73.7 37.0-80.0 % Lymphocytes (%) (Auto) 14.6 10.0-50.0 % Monocytes (%) (Auto) 8.7 0.0-12.0 % Eosinophils (%) (Auto) 2.4 0.0-7.0 % Basophils (%) (Auto) 0.6 0.0-2.0 % Neutrophils # (Auto) 4.8 1.6-8.6 10 ^3/uL Lymphocytes # (Auto) 1.0 0.4-5.4 10 ^3/uL Monocytes # (Auto) 0.6 0-1.3 10 ^3/uL Eosinophils # (Auto) 0.2 0-0.8 10 ^3/uL Basophils # (Auto) 0 0-0.2 10 ^3/uL Nucleated Red Blood Cells 0.0 % Prothrombin Time 10.5 9.3-11.8 sec Prothrombin Time INR 0.99 0.9-1.15 Activated Partial Thromboplast Time 28.5 24.5-34.5 SEC Urine Color Light-yellow Yellow Urine Clarity Clear Clear Urine pH 5.5 5.0-9.0 Urine Specific [place] 1.014 1.001-1.035 Urine Protein Negative Negative Urine Ketones Negative Negative Urine Blood Negative Negative /uL Urine Nitrite Negative Negative Urine Bilirubin Negative Negative Urine Urobilinogen Normal Negative mg/dL Urine Leukocyte Esterase Negative Negative /uL Urine RBC None seen 0 - 4 /hpf Urine Microscopic WBC < 1 0-5 /HPF Urine Squamous Epithelial Cells Few <5 /hpf Urine Bacteria None seen None Seen /hpf Urine Glucose Normal Normal mg/dL Sodium Level 143 136-145 mmol/L Potassium Level 3.4 L 3.5-5.1 mmol/L Chloride Level 109 H 98-107 mmol/L Carbon Dioxide Level 27 20-31 mmol/L Anion Gap 7 5-15 Blood Urea Nitrogen 15 9-23 mg/dL Creatinine 1.11 H 0.550-1.02 mg/dL Glomerular Filtration Rate Calc 53 >90 mL/min BUN/Creatinine Ratio 13.5 10.0-20.0 Serum Glucose 67 L 74-106 mg/dL Calcium Level 9.8 8.7-10.4 mg/dL Total Bilirubin 0.5 0.2-1.0 mg/dL Aspartate Amino Transferase (AST) 24 13-40 U/L Alanine Aminotransferase (ALT) 17 7-40 U/L Alkaline Phosphatase 96 46-116 U/L Total Protein 7.4 5.7-8.2 g/dL Albumin 4.6 3.2-4.8 g/dL Assessment SEE DICTATED NOTE Plan discussed with: Patient Date of Service: Jun 19, 2025 Billing Provider: SAMEER MARRERO MD Common Visit Codes: [id number] INP/OBS CARE (HIGH) Secondary Visit Codes: [id number] CHNG SMOKING >10MIN, [id number] CARE PLAN 30 MINUTES SAMEER MARRERO MD Jun 19, 2025 17:47
[2025-06-19] MEDS ORDERED: hydrOXYzine 25 MG TAB or CAP PO SCH (18:00)
[2025-06-19] MEDS ORDERED: PATIENTS OWN MEDICATION (Amlodipine Besylate 1 TAB) PO SCH (18:00)
--- NOTE | 2025-06-19 18:29 | DVHINCON2 ---
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 The patient had previous laminectomy. The patient denies any shortness of breath, no chest pain, no nausea or vomiting. No significant pain in the back. REVIEW OF SYSTEMS: Review of rest of systems are otherwise currently negative. PAST MEDICAL HISTORY: Significant for hypertension, rheumatoid arthritis, chronic kidney disease, and hyperlipidemia. MEDICATIONS: She takes atorvastatin, amlodipine, lisinopril, gabapentin, omeprazole. ALLERGIES: No known drug allergies. SOCIAL HISTORY: Smokes cigarettes. Denies alcohol, lives at home with her . FAMILY HISTORY: Negative. PHYSICAL EXAMINATION: GENERAL: The patient is awake and alert. VITAL SIGNS: Temperature is 98. Pulse 62 per minute. Blood pressure is 127/81. SHEENT: Unremarkable. NECK: There is no JVD. No pedal edema. LUNGS: Equal bilaterally. No added sounds. CARDIOVASCULAR: S1, S2 is regular without murmurs. ABDOMEN: Soft. There is no organomegaly. NEUROLOGIC: Nonfocal. MUSCULOSKELETAL: There are drains in place at the site of the lumbar spine surgery. ASSESSMENT AND PLAN: * Hypertension for which the patient will continue on amlodipine. * Rheumatoid arthritis, for which she will continue on Plaquenil. * Tobacco abuse for which she has been advised to quit smoking and nicotine patch will be placed. Time spent was 11 minutes. * Hyperlipidemia. * Chronic kidney disease, stage 3. 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 The patient will be placed on pain medication and receive physical therapy. * Advanced care planning. The patient is a full code-Time spent was 18 minutes. MD RHYS Degroot/GEORGE TID: [id number] RECEIPT: [id number] [facility] CENTERDaija
[2025-06-19] MEDS: NICOTINE 14 MG/24HR TOPICAL PATCH TD ONE (18:48)
[2025-06-19 20:00] VITALS: PULSE 75; O2SAT 98
[2025-06-19 21:00] VITALS: BP 118/78; PULSE 70; RESP 16; TEMP 97.4; O2SAT 99
--- NOTE | 2025-06-19 21:11 | DVH ---
CLINICAL INDICATION: DISCECTOMY AND FUSION TECHNIQUE: 17 radiographic views of the discectomy and fusion lumbar spine were obtained. Comparison: MRI LUMBAR SPINE WO CONTRAST on DOS: 03/10/24, CR LUMBAR SPINE 2-3 VIEW on DOS: 01/17/24, DANIELLE MBAR SPINE WO CONTRAST on DOS: 03/03/22 FINDINGS/IMPRESSION: Total fluoro time 86.8 seconds Cumulative dose: 54.22 mGy Refer to surgical report for further detail.
[2025-06-19] MEDS: DOCUSATE SOD 100 MG CAP PO SCH (21:46)
[2025-06-20] VITALS (8 sets, daily range): BP systolic 99–134; BP diastolic 62–88; PULSE 61–86; RESP 16–18; TEMP 97.4–98.3; O2SAT 95–100
[2025-06-20] MEDS: D5W/SOD CHLO 0.9% 1,000 ML IV SCH ×2 (04:59→11:15)
[2025-06-20 07:06] LABS: Hematocrit 31.2 % (36.0-46.0); Hemoglobin 10.5 g/dL (12.2-16.2); Mean Corpuscular Hemoglobin 33.4 pg (28.0-32.0); Mean Corpuscular Volume 99.3 fL (80.0-100.0); Nucleated Red Blood Cells % 0.1 %
[2025-06-20 07:26] LABS: Alanine Aminotransferase 18 U/L (7-40); Alkaline Phosphatase 68 U/L (46-116); Anion Gap 9 (5-15); BUN/Creatinine Ratio 10.6 (10.0-20.0); Blood Urea Nitrogen 10 mg/dL (9-23); Carbon Dioxide 24 mmol/L (20-31); Glucose 92 mg/dL (74-106); Potassium 4.0 mmol/L (3.5-5.1); Sodium 141 mmol/L (136-145)
[2025-06-20 07:27] LABS: Bilirubin, Total 0.5 mg/dL (0.2-1.0)
[2025-06-20 07:30] LABS: Albumin 3.2 g/dL (3.2-4.8); Calcium 8.5 mg/dL (8.7-10.4); Chloride 108 mmol/L (98-107); Total Protein 5.3 g/dL (5.7-8.2)
--- NOTE | 2025-06-20 10:42 | DVHPN2 ---
Progress Note - Surgical Date Seen: Jun 20, 2025 Post op day Post op day: 1 Subjective Patient reports: No new complaints, Feels better Review of Systems: MSK:Normal, NEURO:Abnormal (right foot difficulty walking, numbness tingling to bilateral) Objective Vital signs Vital Sign Date Time Temp Pulse Resp B/P (MAP) Pulse Ox O2 Delivery O2 Flow Rate FiO2 06/20/25 05:00 97.6 70 16 111/76 (88) 100 97.6 06/19/25 20:00 Nasal Cannula* 2 28 Total Intake and Output 06/19/25 06/19/25 06/20/25 15:00 23:00 07:00 Intake Total 740 ml 450 ml Output Total 0 ml Balance 0 ml 740 ml 450 ml Medications Current Medications Medications Dose Ordered Sig/Diana Route Start Time Stop Time Status Last Admin Dose Admin Dextrose/Sodium Chloride 1,000 ml @ 100 mls/hr Q10H IV 06/19/25 09:15 06/20/25 04:59 100 MLS/HR Ondansetron HCl 4 mg Q4HP PRN IV 06/19/25 09:15 Acetaminophen 650 mg Q6HP PRN PO 06/19/25 09:15 Acetaminophen/ Hydrocodone Bitart 1 tab Q6HP PRN PO 06/19/25 09:15 Morphine Sulfate 1 mg Q4HP PRN IV 06/19/25 09:15 06/20/25 03:49 1 MG Cyclobenzaprine HCl 10 mg TID PO 06/19/25 14:00 06/20/25 05:01 10 MG Docusate Sodium 100 mg BID PO 06/19/25 10:00 06/19/25 21:46 100 MG Cefazolin Sodium 50 ml @ 100 mls/hr Q8HR IV 06/19/25 14:00 06/20/25 05:00 100 MLS/HR Nitroglycerin 0.4 mg Q5MINP PRN SL 06/19/25 09:15 Morphine Sulfate 2 mg Q30M PRN IV 06/19/25 09:15 Gabapentin 300 mg TID PO 06/19/25 14:00 06/20/25 05:01 300 MG Hydroxychloroquine Sulfate 200 mg QPM PO 06/19/25 18:00 06/19/25 18:21 200 MG Patient Own Medication 1 tab QPM PO 06/19/25 18:00 UNV Patient Own Medication 25 mg QPM PRN PO 06/19/25 09:15 UNV Amlodipine Besylate 10 mg QPM PO 06/19/25 18:00 06/19/25 18:24 10 MG Hydroxyzine Pamoate 25 mg QPM PRN PO 06/19/25 10:00 Nicotine 1 patch DAILY@1800 TD 06/20/25 18:00 Laboratory Laboratory Tests 06/20/25 05:39 Test 06/20/25 05:39 Range/Units Serum Glucose 92 74-106 mg/dL Examination: GENERAL:Normal, HEENT:Normal, NECK:Normal, LUNGS:Normal, CVS:Normal, ABDOMEN:Normal, MSK:Normal, SKIN:Normal (joel intact, drains intact), NEURO:Abnormal (states some improvment in preoperative symptoms), :Normal Problem List/Assessment/Plan Problems: (1) Muscle spasm of back (2) Acute post-operative pain Assessment and Plan drain output #1 110cc since surgery #2 0cc Patient has not been able to work with physical therapy as of yet Patient states that her preoperative symptoms to her bilateral lower extremities seemed to have been improved Patient is experiencing expected postoperative pain Patient has been using IV breakthrough pain medications more frequently than is desired discussed with family and patient the importance of using the oral medications primarily and using the IV medication for breakthrough pain, all parties verbalized understanding Cepacol lozenges ordered for sore throat Patient has been burping but no passing gas or BM yet Patient is voiding appropriately We will keep the drains in since the patient has not been able to ambulate with physical therapy yet POD # 1 -Disposition: -Pending -Discharge RX: Patient are already picked up postoperative prescriptions -Follow up appointment: with Dr Reyes on scheduled appointment [phone] [id number] [facility] [address] [place] [id number] -Pain: - IV pain meds post op day 1, with PO supplementation, goal is to progress weaning off IV medications and control pain with PO only. morphine 1mg q 4 hours (PAIN 7-10) - P.O. analgesics:Tylenol 650MG (PAIN 1-3) [place] 10/325 mg (PAIN 4-6) - Muscle relaxers scheduled administration. This is a beneficial medications for the incisional pain as it is mostly related to muscle spasms. Flexeril 10 mg TID - Cepacol throat lozenges as needed for sore throat -Antibiotics Operative recommendations: -Postoperative dose:-Post operative antibiotics cefazolin 1 g IV piggyback every 8 hours x 48 hours total of 6 doses -DVT PPX: -Hold all chemical DVT/ blood thinners for 14 days postoperatively -use mechanical DVT PPX such as SCD's, ambulation -Activity: -Pending PT evaluation and patients progression -Sit at side of bed for meals -Goal: Ambulate independently and safely (may use assistive devices if needed) -Medical Therapy goals: -Afebrile- Patient may develop a expected post operative fever by day 2-3, this may not be accompanied with a elevation in WBC. if fever develops: Acetaminophen for fever. Albuterol nebulizer Tx every 12 hours for 24 hours to facilitate adequate lung expansion and prevent development of atelectasis. -Euglycemic: bloods sugars under 130mmol/L for optimal healing -Normotensive: Avoid events of hypertension. This helps to keep post operative healing intact and avoids destabilization of beneficial hemostatic coagulation. -Lumbar: -If patient is comfortable encouraged the patient to lay on their side to facilitate wound healing -Drains: -Hemovac drains: These will be to full compression unless otherwise ordered. Please record and document output AND characteristic of fluid present independently EVERY 6 hours more often as needed. if there in no output indicate this by documenting 0ml. If output is greater than 100 ml in one hour of francois blood call provider. These drains will be removed once the drainage is at a acceptable level (generally less than 100ml in 24 hours) -Joel dressing: This will stay in place and will be removed at the patients follow up visit. Nursing is to assess the seal and power source. The seal should be intact and the power source should have a green flashing light indicating it is functioning well. Batteries can last up to 14 days. If a leak develops the dressing edges can be reinforced with a Tegaderm dressing to reestablish intact seal. The Joel dressing is NOT a wound vac. This does not get changed, it does not need home health management. -Record output independently, drain 1. Is a deep drain and drain 2. Is a superficial drain. Wound drainage is described by type, color, amount, and odor. Drainage can be 1 Serous: Clear and thin, may be present in healing healthy wound. 2 Serosanguineous containing blood may also be present and healthy healing wound 3. Sanguinous primarily blood 4. Purulent this is thick, white, and pus like. It may be indicated to give of a infection and should constitute a call to the provider immediately with the plan that the sample should be cultured. -Thomas: discontinued in OR -Dressings Take care not to disrupt the JOEL dressing seal. If there is a break in the seal it can be trouble shot with a Tegaderm dressing. -Dressing to Hemovac drains may be changed once the drains have been removed by the provider. -Bowel management: -Colace 100mg bid -Diet: -Clear liquid diet and advance as patient tolerates within dietary limitations ( example: diabetic, Cardiac) -Incentive Spirometer: -10 x hour while awake, RN please educate and observe repeat demonstration, have IS at bedside POD #1 -X-rays: - none indicated at this time -Consults: -Physical Therapy evaluation, treatment recommendations, and discharge recommendations Call with questions Vandana Scott [facility]- Orthopaedic Spine Surgery nurse practitioner For Dr Salima Reyes Patient was examined, chart reviewed, labs evaluated, and diagnostic studies and findings analyzed. Case was discussed with Dr. Yaw Reyes who formulated the plan of care. This medical document was created using an electronic medical record system with [employer] dictation system. Although this document has been carefully reviewed, there might still be some phonetic and typographical errors. These areas are purely typographical due to imperfections of the software programs, and do not reflect any compromise in the patient's medical care. Plan discussed with Plan discussed with: Patient, Other (Gina ESALS extension [id number]) Visit Coding Surgery Date of Service if different f: Jun 19, 2025 Billing Provider: MISHEL SCOTT NP Surgery Visit Codes: NOT BILLABLE MISHEL SCOTT NP Jun 20, 2025 10:42
--- NOTE | 2025-06-20 11:06 | DVHPN2 ---
Progress Note Date Seen: Jun 20, 2025 Medical Necessity Reason Pt with a Central, PICC or Fol: No Subjective Patient reports: No new complaints Review of Systems: HEENT:Normal, CVS:Normal, RESPIRATORY:Normal, GI:Normal, :Normal, MSK:Normal, NEURO:Normal Objective vital signs Vital Sign Date Time Temp Pulse Resp B/P (MAP) Pulse Ox O2 Delivery O2 Flow Rate FiO2 06/20/25 05:00 97.6 70 16 111/76 (88) 100 97.6 06/19/25 20:00 Nasal Cannula* 2 28 Total Intake and Output 06/19/25 06/19/25 06/20/25 15:00 23:00 07:00 Intake Total 740 ml 450 ml Output Total 0 ml Balance 0 ml 740 ml 450 ml medications Current Medications Medications Dose Ordered Sig/Diana Route Start Time Stop Time Status Last Admin Dose Admin Dextrose/Sodium Chloride 1,000 ml @ 100 mls/hr Q10H IV 06/19/25 09:15 06/20/25 04:59 100 MLS/HR Ondansetron HCl 4 mg Q4HP PRN IV 06/19/25 09:15 Acetaminophen 650 mg Q6HP PRN PO 06/19/25 09:15 Acetaminophen/ Hydrocodone Bitart 1 tab Q6HP PRN PO 06/19/25 09:15 Morphine Sulfate 1 mg Q4HP PRN IV 06/19/25 09:15 06/20/25 03:49 1 MG Cyclobenzaprine HCl 10 mg TID PO 06/19/25 14:00 06/20/25 05:01 10 MG Docusate Sodium 100 mg BID PO 06/19/25 10:00 06/19/25 21:46 100 MG Cefazolin Sodium 50 ml @ 100 mls/hr Q8HR IV 06/19/25 14:00 06/20/25 05:00 100 MLS/HR Nitroglycerin 0.4 mg Q5MINP PRN SL 06/19/25 09:15 Morphine Sulfate 2 mg Q30M PRN IV 06/19/25 09:15 Gabapentin 300 mg TID PO 06/19/25 14:00 06/20/25 05:01 300 MG Hydroxychloroquine Sulfate 200 mg QPM PO 06/19/25 18:00 06/19/25 18:21 200 MG Patient Own Medication 1 tab QPM PO 06/19/25 18:00 UNV Patient Own Medication 25 mg QPM PRN PO 06/19/25 09:15 UNV Amlodipine Besylate 10 mg QPM PO 06/19/25 18:00 06/19/25 18:24 10 MG Hydroxyzine Pamoate 25 mg QPM PRN PO 06/19/25 10:00 Nicotine 1 patch DAILY@1800 TD 06/20/25 18:00 Examination: GENERAL:Normal, HEENT:Normal, NECK:Normal, LUNGS:Normal, CVS:Normal, ABDOMEN:Normal, MSK:Normal, MSK:Abnormal (lumber spine drains), SKIN:Normal, NEURO:Normal, :Normal laboratory and microbiology Laboratory Tests 06/20/25 05:39 Test 06/20/25 05:39 Range/Units Serum Glucose 92 74-106 mg/dL Problem List/Assessment/Plan Problem List/Assessment/Plan * Hypertension for which the patient will continue on amlodipine. * Rheumatoid arthritis, for which she will continue on Plaquenil. * Tobacco abuse for which she has been advised to quit smoking and nicotine patch will be placed. Time spent was 11 minutes. * Hyperlipidemia. * Chronic kidney disease, stage 3. 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 The patient will be placed on pain medication and receive physical therapy. * Advanced care planning. The patient is a full code-Time spent was 18 minutes. Plan discussed with: Spouse, Daughter My Orders My Orders Orders - SAMEER MARRERO MD Procedure Category Date Status Time Nicotine 14mg/24hr PHA 06/20/25 In Process (Nicoderm 14mg/24hr) 18:00 D5w-0.9%Ns 1000 Ml PHA 06/20/25 Verified 11:15 Basic Metabolic Panel LAB 06/21/25 Verified 06:00 Complete Blood Count LAB 06/21/25 Verified 06:00 Date of Service: Jun 20, 2025 Billing Provider: SAMEER MARRERO MD Common Visit Codes: [id number] INP/OBS CARE(HIGH) Secondary Visit Codes: [id number] CARE PLAN 30 MINUTES SAMEER MARRERO MD Jun 20, 2025 11:06
[2025-06-20] MEDS: NICOTINE 14 MG/24HR TOPICAL PATCH TD SCH (17:33)
[2025-06-20] MEDS: THROAT LOZENGES(CEPASTAT) MT SCH (20:00)
[2025-06-21] VITALS (8 sets, daily range): BP systolic 116–141; BP diastolic 70–88; PULSE 64–74; RESP 16–18; TEMP 97.9–98.7; O2SAT 90–93
[2025-06-21] MEDS: HYDROcodone-ACET 10/325MG TAB PO PRN (00:29)
[2025-06-21 06:25] LABS: Anion Gap 8 (5-15); Carbon Dioxide 27 mmol/L (20-31); Sodium 145 mmol/L (136-145)
[2025-06-21 06:26] LABS: Calcium 9.0 mg/dL (8.7-10.4)
[2025-06-21 06:29] LABS: Chloride 110 mmol/L (98-107); Potassium 3.5 mmol/L (3.5-5.1)
[2025-06-21 06:31] LABS: BUN/Creatinine Ratio 9.4 (10.0-20.0); Glucose 96 mg/dL (74-106)
[2025-06-21 06:37] LABS: Blood Urea Nitrogen 8 mg/dL (9-23)
[2025-06-21 06:52] LABS: Hematocrit 31.3 % (36.0-46.0); Hemoglobin 10.7 g/dL (12.2-16.2); Mean Corpuscular Hemoglobin 33.4 pg (28.0-32.0); Mean Corpuscular Volume 98.0 fL (80.0-100.0); Nucleated Red Blood Cells % 0.0 %
--- NOTE | 2025-06-21 14:50 | DVHPN2 ---
Progress Note Date Seen: Jun 21, 2025 Medical Necessity Reason Pt with a Central, PICC or Fol: No Subjective Patient reports: No new complaints Review of Systems: HEENT:Normal, CVS:Normal, RESPIRATORY:Normal, GI:Normal, :Normal, MSK:Normal, NEURO:Normal Objective vital signs Vital Sign Date Time Temp Pulse Resp B/P (MAP) Pulse Ox O2 Delivery O2 Flow Rate FiO2 06/21/25 09:00 98.3 74 18 116/79 (91) 93 98.3 06/21/25 08:00 Nasal Cannula* 2 28 Total Intake and Output 06/20/25 06/20/25 06/21/25 15:00 23:00 07:00 Intake Total 1000 ml 100 ml 450 ml Balance 1000 ml 100 ml 450 ml medications Current Medications Medications Dose Ordered Sig/Diana Route Start Time Stop Time Status Last Admin Dose Admin Ondansetron HCl 4 mg Q4HP PRN IV 06/19/25 09:15 Acetaminophen 650 mg Q6HP PRN PO 06/19/25 09:15 Acetaminophen/ Hydrocodone Bitart 1 tab Q6HP PRN PO 06/19/25 09:15 06/21/25 13:04 1 TAB Morphine Sulfate 1 mg Q4HP PRN IV 06/19/25 09:15 06/20/25 03:49 1 MG Cyclobenzaprine HCl 10 mg TID PO 06/19/25 14:00 06/21/25 13:47 10 MG Docusate Sodium 100 mg BID PO 06/19/25 10:00 06/21/25 10:14 100 MG Cefazolin Sodium 50 ml @ 100 mls/hr Q8HR IV 06/19/25 14:00 06/21/25 13:47 100 MLS/HR Nitroglycerin 0.4 mg Q5MINP PRN SL 06/19/25 09:15 Morphine Sulfate 2 mg Q30M PRN IV 06/19/25 09:15 Gabapentin 300 mg TID PO 06/19/25 14:00 06/21/25 13:46 300 MG Hydroxychloroquine Sulfate 200 mg QPM PO 06/19/25 18:00 06/20/25 17:33 200 MG Patient Own Medication 1 tab QPM PO 06/19/25 18:00 UNV Patient Own Medication 25 mg QPM PRN PO 06/19/25 09:15 UNV Amlodipine Besylate 10 mg QPM PO 06/19/25 18:00 06/20/25 17:33 10 MG Hydroxyzine Pamoate 25 mg QPM PRN PO 06/19/25 10:00 Nicotine 1 patch DAILY@1800 TD 06/20/25 18:00 06/20/25 17:33 1 PATCH Dextrose/Sodium Chloride 1,000 ml @ 75 mls/hr [id number] IV 06/20/25 11:15 06/21/25 02:01 75 MLS/HR Throat Lozenges 1 debra Q2HP MT 06/20/25 20:00 Examination: GENERAL:Normal, HEENT:Normal, NECK:Normal, LUNGS:Normal, CVS:Normal, ABDOMEN:Normal, MSK:Normal, MSK:Abnormal (lumber drains), SKIN:Normal, NEURO:Normal, :Normal laboratory and microbiology Laboratory Tests 06/21/25 02:52 Test 06/21/25 02:52 Range/Units Serum Glucose 96 74-106 mg/dL Problem List/Assessment/Plan Problem List/Assessment/Plan * Hypertension for which the patient will continue on amlodipine. * Rheumatoid arthritis, for which she will continue on Plaquenil. * Tobacco abuse for which she has been advised to quit smoking and nicotine patch will be placed. Time spent was 11 minutes. * Hyperlipidemia. * Chronic kidney disease, stage 3. 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 The patient will be placed on pain medication and receive physical therapy. * Advanced care planning. The patient is a full code-Time spent was 18 minutes. Plan discussed with: Patient Date of Service: Jun 21, 2025 Billing Provider: SAMEER MARRERO MD Common Visit Codes: [id number] INP/OBS CARE(HIGH) SAMEER MARRERO MD Jun 21, 2025 14:50
[2025-06-21] MEDS: ceFAZolin 1GM/50ML 50 ML IV SCH (15:29)
--- NOTE | 2025-06-21 20:22 | DVHPN2 ---
Progress Note - Surgical Date Seen: Jun 21, 2025 Post op day Post op day: 2 Subjective Patient reports: No new complaints, Feels better Review of Systems: MSK:Normal, NEURO:Normal (improving in preoperative symptoms) Objective Vital signs Vital Sign Date Time Temp Pulse Resp B/P (MAP) Pulse Ox O2 Delivery O2 Flow Rate FiO2 06/21/25 18:15 139/88 06/21/25 17:00 98.5 66 16 92 98.5 06/21/25 08:00 Nasal Cannula* 2 28 Total Intake and Output 06/20/25 06/20/25 06/21/25 15:00 23:00 07:00 Intake Total 1000 ml 100 ml 450 ml Balance 1000 ml 100 ml 450 ml Medications Current Medications Medications Dose Ordered Sig/Diana Route Start Time Stop Time Status Last Admin Dose Admin Ondansetron HCl 4 mg Q4HP PRN IV 06/19/25 09:15 Acetaminophen 650 mg Q6HP PRN PO 06/19/25 09:15 Acetaminophen/ Hydrocodone Bitart 1 tab Q6HP PRN PO 06/19/25 09:15 06/21/25 13:04 1 TAB Morphine Sulfate 1 mg Q4HP PRN IV 06/19/25 09:15 06/20/25 03:49 1 MG Cyclobenzaprine HCl 10 mg TID PO 06/19/25 14:00 06/21/25 13:47 10 MG Docusate Sodium 100 mg BID PO 06/19/25 10:00 06/21/25 10:14 100 MG Nitroglycerin 0.4 mg Q5MINP PRN SL 06/19/25 09:15 Morphine Sulfate 2 mg Q30M PRN IV 06/19/25 09:15 Gabapentin 300 mg TID PO 06/19/25 14:00 06/21/25 13:46 300 MG Hydroxychloroquine Sulfate 200 mg QPM PO 06/19/25 18:00 06/21/25 18:15 200 MG Patient Own Medication 1 tab QPM PO 06/19/25 18:00 UNV Patient Own Medication 25 mg QPM PRN PO 06/19/25 09:15 UNV Amlodipine Besylate 10 mg QPM PO 06/19/25 18:00 06/21/25 18:15 10 MG Hydroxyzine Pamoate 25 mg QPM PRN PO 06/19/25 10:00 Nicotine 1 patch DAILY@1800 TD 06/20/25 18:00 06/21/25 18:16 1 PATCH Throat Lozenges 1 kritsy Q2HP MT 06/20/25 20:00 06/21/25 18:15 1 KRISTY Cefazolin Sodium 50 ml @ 100 mls/hr Q8HR IV 06/21/25 15:00 06/21/25 15:29 100 MLS/HR Laboratory Laboratory Tests 06/21/25 02:52 Test 06/21/25 02:52 Range/Units Serum Glucose 96 74-106 mg/dL Examination: GENERAL:Normal, HEENT:Normal, NECK:Normal, LUNGS:Normal, CVS:Normal, ABDOMEN:Normal, MSK:Normal, SKIN:Normal (ICO in place drain in place), NEURO:Normal (improving BLE and LBP), :Normal Problem List/Assessment/Plan Assessment and Plan drain output #1 110cc since surgery Drain #2 DC'd Patient was able to get up and ambulate to door and a small part of hallway Patient states that her preoperative symptoms to her bilateral lower extremities seemed to have been improved Patient is experiencing expected postoperative pain Patient has been using oral medications primarily and using the IV medication for breakthrough pain sore throat improving Patient is voiding appropriately We will keep the drain in since the patient has not been able to ambulate regulatly with physical therapy yet POD # 2 -Disposition: -Pending -Discharge RX: Patient are already picked up postoperative prescriptions -Follow up appointment: with Dr Reyes on scheduled appointment [id number] [facility] [address] [place] [id number] -Pain: - IV pain meds post op day 1, with PO supplementation, goal is to progress weaning off IV medications and control pain with PO only. morphine 1mg q 4 hours (PAIN 7-10) - P.O. analgesics:Tylenol 650MG (PAIN 1-3) [place] 10/325 mg (PAIN 4-6) - Muscle relaxers scheduled administration. This is a beneficial medications for the incisional pain as it is mostly related to muscle spasms. Flexeril 10 mg TID - Cepacol throat lozenges as needed for sore throat -Antibiotics Operative recommendations: -Postoperative dose:-Post operative antibiotics cefazolin 1 g IV piggyback every 8 hours x 48 hours total of 6 doses -DVT PPX: -Hold all chemical DVT/ blood thinners for 14 days postoperatively -use mechanical DVT PPX such as SCD's, ambulation -Activity: -Pending PT evaluation and patients progression -Sit at side of bed for meals -Goal: Ambulate independently and safely (may use assistive devices if needed) -Medical Therapy goals: -Afebrile- Patient may develop a expected post operative fever by day 2-3, this may not be accompanied with a elevation in WBC. if fever develops: Acetaminophen for fever. Albuterol nebulizer Tx every 12 hours for 24 hours to facilitate adequate lung expansion and prevent development of atelectasis. -Euglycemic: bloods sugars under 130mmol/L for optimal healing -Normotensive: Avoid events of hypertension. This helps to keep post operative healing intact and avoids destabilization of beneficial hemostatic coagulation. -Lumbar: -If patient is comfortable encouraged the patient to lay on their side to facilitate wound healing -Drains: -Hemovac drains: These will be to full compression unless otherwise ordered. Please record and document output AND characteristic of fluid present independently EVERY 6 hours more often as needed. if there in no output indicate this by documenting 0ml. If output is greater than 100 ml in one hour of francois blood call provider. These drains will be removed once the drainage is at a acceptable level (generally less than 100ml in 24 hours) -Joel dressing: This will stay in place and will be removed at the patients follow up visit. Nursing is to assess the seal and power source. The seal should be intact and the power source should have a green flashing light indicating it is functioning well. Batteries can last up to 14 days. If a leak develops the dressing edges can be reinforced with a Tegaderm dressing to reestablish intact seal. The Joel dressing is NOT a wound vac. This does not get changed, it does not need home health management. -Record output independently, drain 1. Is a deep drain and drain 2. Is a superficial drain. Wound drainage is described by type, color, amount, and odor. Drainage can be 1 Serous: Clear and thin, may be present in healing healthy wound. 2 Serosanguineous containing blood may also be present and healthy healing wound 3. Sanguinous primarily blood 4. Purulent this is thick, white, and pus like. It may be indicated to give of a infection and should constitute a call to the provider immediately with the plan that the sample should be cultured. -Thomas: discontinued in OR -Dressings Take care not to disrupt the JOEL dressing seal. If there is a break in the seal it can be trouble shot with a Tegaderm dressing. -Dressing to Hemovac drains may be changed once the drains have been removed by the provider. -Bowel management: -Colace 100mg bid -Diet: -Clear liquid diet and advance as patient tolerates within dietary limitations ( example: diabetic, Cardiac) -Incentive Spirometer: -10 x hour while awake, RN please educate and observe repeat demonstration, have IS at bedside POD #1 -X-rays: - none indicated at this time -Consults: -Physical Therapy evaluation, treatment recommendations, and discharge recommendations Call with questions Vandana Rodriguez ACNP- Orthopaedic Spine Surgery nurse practitioner For Dr Salima Reyes Patient was examined, chart reviewed, labs evaluated, and diagnostic studies and findings analyzed. Case was discussed with Dr. Yaw Reyes who formulated the plan of care. This medical document was created using an electronic medical record system with [employer] dictation system. Although this document has been carefully reviewed, there might still be some phonetic and typographical errors. These areas are purely typographical due to imperfections of the software programs, and do not reflect any compromise in the patient's medical care. Plan discussed with Plan discussed with: Patient, Daughter, Other (bedside RN) Visit Coding Surgery Date of Service if different f: Jun 19, 2025 Billing Provider: MISHEL RODRIGUEZ NP Surgery Visit Codes: NOT BILLABLE MISHEL RODRIGUEZ NP Jun 21, 2025 20:22
[2025-06-22] VITALS (8 sets, daily range): BP systolic 110–136; BP diastolic 73–85; PULSE 67–82; RESP 17–20; TEMP 98–98.9; O2SAT 91–96
--- NOTE | 2025-06-22 12:09 | DVHPN2 ---
Subjective The patient seen and examined at bedside. The patient complains of leg pain Reviewed: Care Plan, H&P, Labs, Medications, Previous Orders Changes from previous H/P or p: No Changes Objective Vitals Vital Signs Date Time Temp Pulse Resp B/P (MAP) Pulse Ox O2 Delivery O2 Flow Rate FiO2 06/22/25 09:00 98.6 72 20 126/83 (97) 93 98.6 06/22/25 07:47 Nasal Cannula* 2 28 Intake/Output Intake and Output 06/22/25 07:00 Intake Total 1036 ml Output Total 400 ml Balance 636 ml Intake Oral 886 ml IV Total 150 ml Output Urine Total 400 ml General Appearance: Alert, Cooperative, No acute distress HEENT: Atraumatic, PERRLA, EOMI, Mucous membr. moist/pink Neck: Supple Lungs: Clear to auscultation, Normal air movement Cardiovascular: Regular rate, Normal S1, Normal S2, No murmurs, Gallops, Rubs Neuro: Cranial nerves 3-12 NL Psych/Mental Status: Mental status NL Medications Current Medications Medications Dose Ordered Sig/Diana Route Start Time Stop Time Status Last Admin Dose Admin Ondansetron HCl 4 mg Q4HP PRN IV 06/19/25 09:15 Acetaminophen 650 mg Q6HP PRN PO 06/19/25 09:15 Acetaminophen/ Hydrocodone Bitart 1 tab Q6HP PRN PO 06/19/25 09:15 06/21/25 13:04 1 TAB Morphine Sulfate 1 mg Q4HP PRN IV 06/19/25 09:15 06/20/25 03:49 1 MG Cyclobenzaprine HCl 10 mg TID PO 06/19/25 14:00 06/22/25 05:56 10 MG Docusate Sodium 100 mg BID PO 06/19/25 10:00 06/22/25 08:24 100 MG Nitroglycerin 0.4 mg Q5MINP PRN SL 06/19/25 09:15 Morphine Sulfate 2 mg Q30M PRN IV 06/19/25 09:15 Gabapentin 300 mg TID PO 06/19/25 14:00 06/22/25 05:56 300 MG Hydroxychloroquine Sulfate 200 mg QPM PO 06/19/25 18:00 06/21/25 18:15 200 MG Patient Own Medication 1 tab QPM PO 06/19/25 18:00 UNV Patient Own Medication 25 mg QPM PRN PO 06/19/25 09:15 UNV Amlodipine Besylate 10 mg QPM PO 06/19/25 18:00 06/21/25 18:15 10 MG Hydroxyzine Pamoate 25 mg QPM PRN PO 06/19/25 10:00 Nicotine 1 patch DAILY@1800 TD 06/20/25 18:00 06/21/25 18:16 1 PATCH Throat Lozenges 1 kristy Q2HP MT 06/20/25 20:00 06/22/25 10:36 1 KRISTY Cefazolin Sodium 50 ml @ 100 mls/hr Q8HR IV 06/21/25 15:00 06/22/25 05:56 100 MLS/HR Laboratory Results Laboratory Tests 06/21/25 02:52 Urinalysis Test 06/15/25 10:32 Urine Color Light-yellow (Yellow) Urine Clarity Clear (Clear) Urine pH 5.5 (5.0-9.0) Urine Specific [place] 1.014 (1.001-1.035) Urine Protein Negative (Negative) Urine Ketones Negative (Negative) Urine Blood Negative /uL (Negative) Urine Nitrite Negative (Negative) Urine Bilirubin Negative (Negative) Urine Urobilinogen Normal mg/dL (Negative) Urine Leukocyte Esterase Negative /uL (Negative) Urine RBC None seen /hpf (0 - 4) Urine Microscopic WBC < 1 /HPF (0-5) Urine Squamous Epithelial Cells Few /hpf (<5) Urine Bacteria None seen /hpf (None Seen) Urine Glucose Normal mg/dL (Normal) Labs and/or images reviewed: Labs reviewed by me Assessment/Plan Assessment/Plan * Hypertension for which the patient will continue on amlodipine. * Rheumatoid arthritis, for which she will continue on Plaquenil. * Tobacco abuse for which she has been advised to quit smoking and nicotine patch will be placed. Time spent was 11 minutes. * Hyperlipidemia. * Chronic kidney disease, stage 3. 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 The patient will be placed on pain medication and receive physical therapy. * Home health for PT. DM for FWW, bedside comode, DW patient and fabianoer. Plan discussed with: Patient Date of Service: Jun 22, 2025 Billing Provider: YADIEL YOUNG MD Common Visit Codes: [id number] INP/OBS CARE(HIGH) YADIEL YOUNG MD Jun 22, 2025 12:09
--- NOTE | 2025-06-22 12:13 | DVHPN2 ---
Progress Note - Surgical Date Seen: Jun 22, 2025 Post op day Post op day: 3 Subjective Patient reports: No new complaints, Feels better Review of Systems: MSK:Normal, NEURO:Normal (Patient reports improvement in bilateral leg pain numbness tingling, and low back pain postoperatively) Objective Vital signs Vital Sign Date Time Temp Pulse Resp B/P (MAP) Pulse Ox O2 Delivery O2 Flow Rate FiO2 06/22/25 09:00 98.6 72 20 126/83 (97) 93 98.6 06/22/25 07:47 Nasal Cannula* 2 28 Total Intake and Output 06/21/25 06/21/25 06/22/25 15:00 23:00 07:00 Intake Total 436 ml 600 ml Output Total 400 ml Balance 436 ml 200 ml Medications Current Medications Medications Dose Ordered Sig/Diana Route Start Time Stop Time Status Last Admin Dose Admin Ondansetron HCl 4 mg Q4HP PRN IV 06/19/25 09:15 Acetaminophen 650 mg Q6HP PRN PO 06/19/25 09:15 Acetaminophen/ Hydrocodone Bitart 1 tab Q6HP PRN PO 06/19/25 09:15 06/21/25 13:04 1 TAB Morphine Sulfate 1 mg Q4HP PRN IV 06/19/25 09:15 06/20/25 03:49 1 MG Cyclobenzaprine HCl 10 mg TID PO 06/19/25 14:00 06/22/25 05:56 10 MG Docusate Sodium 100 mg BID PO 06/19/25 10:00 06/22/25 08:24 100 MG Nitroglycerin 0.4 mg Q5MINP PRN SL 06/19/25 09:15 Morphine Sulfate 2 mg Q30M PRN IV 06/19/25 09:15 Gabapentin 300 mg TID PO 06/19/25 14:00 06/22/25 05:56 300 MG Hydroxychloroquine Sulfate 200 mg QPM PO 06/19/25 18:00 06/21/25 18:15 200 MG Patient Own Medication 1 tab QPM PO 06/19/25 18:00 UNV Patient Own Medication 25 mg QPM PRN PO 06/19/25 09:15 UNV Amlodipine Besylate 10 mg QPM PO 06/19/25 18:00 06/21/25 18:15 10 MG Hydroxyzine Pamoate 25 mg QPM PRN PO 06/19/25 10:00 Nicotine 1 patch DAILY@1800 TD 06/20/25 18:00 06/21/25 18:16 1 PATCH Throat Lozenges 1 kristy Q2HP MT 06/20/25 20:00 06/22/25 10:36 1 KRISTY Cefazolin Sodium 50 ml @ 100 mls/hr Q8HR IV 06/21/25 15:00 06/22/25 05:56 100 MLS/HR Laboratory Laboratory Tests 06/21/25 02:52 Test 06/21/25 02:52 Range/Units Serum Glucose 96 74-106 mg/dL Examination: GENERAL:Normal, HEENT:Normal, NECK:Normal, LUNGS:Normal, CVS:Normal, ABDOMEN:Normal, MSK:Normal (Patient is complaining of some new pain to her right thigh after physical therapy today, did improve with pain medication-oral has not happened a 2nd time), SKIN:Normal (Joel dressing is intact, drain 1. Is intact), NEURO:Normal (Patient has verbalized improvement in her preoperative symptoms), :Normal Problem List/Assessment/Plan Problems: (1) Muscle spasm of back (2) Acute post-operative pain Assessment and Plan drain output #1 100 cc out in day shift, we will keep drain in another day and reassess tomorrow Patient was able to get up and ambulate with physical therapy x2 today Patient states that her preoperative symptoms to her bilateral lower extremities seemed to have been improved Patient is experiencing expected postoperative pain New pain to the right thigh today, did improve with pain medication has not recurred Patient has been using oral medications primarily sore throat improving Patient is voiding appropriately We will keep the drain in since the output is too high POD # 3 -Disposition: -Pending -Discharge RX: Patient are already picked up postoperative prescriptions -Follow up appointment: with Dr Reyes on scheduled appointment [id number] [facility] [address] [place] [id number] -Pain: - IV pain meds post op day 1, with PO supplementation, goal is to progress weaning off IV medications and control pain with PO only. morphine 1mg q 4 hours (PAIN 7-10) - P.O. analgesics:Tylenol 650MG (PAIN 1-3) [place] 10/325 mg (PAIN 4-6) - Muscle relaxers scheduled administration. This is a beneficial medications for the incisional pain as it is mostly related to muscle spasms. Flexeril 10 mg TID - Cepacol throat lozenges as needed for sore throat -DVT PPX: -Hold all chemical DVT/ blood thinners for 14 days postoperatively -use mechanical DVT PPX such as SCD's, ambulation -Activity: -working with PT and patient is progressing -Sit at side of bed for meals -Goal: Ambulate independently and safely (may use assistive devices if needed) -Medical Therapy goals: -Afebrile- Patient may develop a expected post operative fever by day 2-3, this may not be accompanied with a elevation in WBC. if fever develops: Acetaminophen for fever. Albuterol nebulizer Tx every 12 hours for 24 hours to facilitate adequate lung expansion and prevent development of atelectasis. -Euglycemic: bloods sugars under 130mmol/L for optimal healing -Normotensive: Avoid events of hypertension. This helps to keep post operative healing intact and avoids destabilization of beneficial hemostatic coagulation. -Lumbar: -If patient is comfortable encouraged the patient to lay on their side to facilitate wound healing -Drains: -Hemovac drains: These will be to full compression unless otherwise ordered. Please record and document output AND characteristic of fluid present independently EVERY 6 hours more often as needed. if there in no output indicate this by documenting 0ml. If output is greater than 100 ml in one hour of francois blood call provider. These drains will be removed once the drainage is at a acceptable level (generally less than 100ml in 24 hours) -Joel dressing: This will stay in place and will be removed at the patients follow up visit. Nursing is to assess the seal and power source. The seal should be intact and the power source should have a green flashing light indicating it is functioning well. Batteries can last up to 14 days. If a leak develops the dressing edges can be reinforced with a Tegaderm dressing to reestablish intact seal. The Joel dressing is NOT a wound vac. This does not get changed, it does not need home health management. -Record output independently, drain 1. Is a deep drain. Wound drainage is described by type, color, amount, and odor. Drainage can be 1 Serous: Clear and thin, may be present in healing healthy wound. 2 Serosanguineous containing blood may also be present and healthy healing wound 3. Sanguinous primarily blood 4. Purulent this is thick, white, and pus like. It may be indicated to give of a infection and should constitute a call to the provider immediately with the plan that the sample should be cultured. -Dressings Take care not to disrupt the JOEL dressing seal. If there is a break in the seal it can be trouble shot with a Tegaderm dressing. -Dressing to Hemovac drains may be changed once the drains have been removed by the provider. -Bowel management: -Colace 100mg bid -Diet: -Clear liquid diet and advance as patient tolerates within dietary limitations ( example: diabetic, Cardiac) -Incentive Spirometer: -10 x hour while awake, RN please educate and observe repeat demonstration, have IS at bedside POD #1 -X-rays: - none indicated at this time -Consults: -Physical Therapy evaluation, treatment recommendations, and discharge recommendations Call with questions Vandana Rodriguez ACNP- Orthopaedic Spine Surgery nurse practitioner For Dr Salima Reyes Patient was examined, chart reviewed, labs evaluated, and diagnostic studies and findings analyzed. Case was discussed with Dr. Yaw Reyes who formulated the plan of care. This medical document was created using an electronic medical record system with [employer] dictation system. Although this document has been carefully reviewed, there might still be some phonetic and typographical errors. These areas are purely typographical due to imperfections of the software programs, and do not reflect any compromise in the patient's medical care. Plan discussed with Plan discussed with: Patient, Spouse, Daughter, Other ([facility] x [phone]) Visit Coding Surgery Date of Service if different f: Jun 19, 2025 Billing Provider: MISHEL RODRIGUEZ NP Surgery Visit Codes: NOT BILLABLE MISHEL RODRIGUEZ NP Jun 22, 2025 12:13
[2025-06-22] MEDS ORDERED: LIDOCAINE W/ EPINEPHRINE 1% 20ML VIAL ONE (17:00)
[2025-06-23] VITALS (9 sets, daily range): BP systolic 118–134; BP diastolic 74–89; PULSE 64–79; RESP 16–19; TEMP 97.1–98.5; O2SAT 92–97
--- NOTE | 2025-06-23 11:34 | DVHPN2 ---
Progress Note - Surgical Date Seen: Jun 23, 2025 Post op day Post op day: 4 Subjective Patient reports: No new complaints, Feels better Review of Systems: MSK:Normal, NEURO:Normal (improving in BLE symptoms) Objective Vital signs Vital Sign Date Time Temp Pulse Resp B/P (MAP) Pulse Ox O2 Delivery O2 Flow Rate FiO2 06/23/25 09:00 98.3 67 17 134/78 (96) 95 98.3 06/22/25 20:00 Nasal Cannula* 2 28 Total Intake and Output 06/22/25 06/22/25 06/23/25 15:00 23:00 07:00 Intake Total 1550 ml 750 ml Balance 1550 ml 750 ml Medications Current Medications Medications Dose Ordered Sig/Diana Route Start Time Stop Time Status Last Admin Dose Admin Ondansetron HCl 4 mg Q4HP PRN IV 06/19/25 09:15 Acetaminophen 650 mg Q6HP PRN PO 06/19/25 09:15 Acetaminophen/ Hydrocodone Bitart 1 tab Q6HP PRN PO 06/19/25 09:15 06/23/25 10:16 1 TAB Morphine Sulfate 1 mg Q4HP PRN IV 06/19/25 09:15 06/20/25 03:49 1 MG Cyclobenzaprine HCl 10 mg TID PO 06/19/25 14:00 06/23/25 05:18 10 MG Docusate Sodium 100 mg BID PO 06/19/25 10:00 06/23/25 10:15 100 MG Nitroglycerin 0.4 mg Q5MINP PRN SL 06/19/25 09:15 Morphine Sulfate 2 mg Q30M PRN IV 06/19/25 09:15 Gabapentin 300 mg TID PO 06/19/25 14:00 06/23/25 05:18 300 MG Hydroxychloroquine Sulfate 200 mg QPM PO 06/19/25 18:00 06/22/25 18:07 200 MG Patient Own Medication 1 tab QPM PO 06/19/25 18:00 UNV Patient Own Medication 25 mg QPM PRN PO 06/19/25 09:15 UNV Amlodipine Besylate 10 mg QPM PO 06/19/25 18:00 06/22/25 18:09 10 MG Hydroxyzine Pamoate 25 mg QPM PRN PO 06/19/25 10:00 Nicotine 1 patch DAILY@1800 TD 06/20/25 18:00 06/22/25 18:10 1 PATCH Throat Lozenges 1 kristy Q2HP MT 06/20/25 20:00 06/23/25 05:26 1 KRISTY Cefazolin Sodium 50 ml @ 100 mls/hr Q8HR IV 06/21/25 15:00 06/23/25 05:18 100 MLS/HR Laboratory Laboratory Tests 06/21/25 02:52 Test 06/21/25 02:52 Range/Units Serum Glucose 96 74-106 mg/dL Examination: GENERAL:Normal, HEENT:Normal, NECK:Normal, LUNGS:Normal, CVS:Normal, ABDOMEN:Normal, MSK:Normal (but deconditioned), SKIN:Normal (JOEL intact, drain @1 intact- DC today), NEURO:Normal (improved- but still deconditioned), :Normal Problem List/Assessment/Plan Problems: (1) Muscle spasm of back (2) Acute post-operative pain Assessment and Plan drain output #1 25 cc out in day shift, we will dc drain Patient was able to get up and ambulate with physical therapy continues to improve, but still requires assistance, not independent Patient states that her preoperative symptoms to her bilateral lower extremities seemed to have been continuing to improved Patient is experiencing expected postoperative pain Pain to the right thigh yesterday, did not recurred Patient has been using oral medications primarily sore throat resolved Patient is voiding appropriately POD # 4 -Disposition: -Pending -Discharge RX: Patient are already picked up postoperative prescriptions -Follow up appointment: with Dr Reyes on scheduled appointment [id number] [facility] [address] [address] -Pain: - IV pain meds post op day 1, with PO supplementation, goal is to progress weaning off IV medications and control pain with PO only. morphine 1mg q 4 hours (PAIN 7-10) - P.O. analgesics:Tylenol 650MG (PAIN 1-3) [place] 10/325 mg (PAIN 4-6) - Muscle relaxers scheduled administration. This is a beneficial medications for the incisional pain as it is mostly related to muscle spasms. Flexeril 10 mg TID - Cepacol throat lozenges as needed for sore throat -DVT PPX: -Hold all chemical DVT/ blood thinners for 14 days postoperatively -use mechanical DVT PPX such as SCD's, ambulation -Activity: -working with PT and patient is progressing -Sit at side of bed for meals -Goal: Ambulate independently and safely (may use assistive devices if needed) -Medical Therapy goals: -Afebrile- Patient may develop a expected post operative fever by day 2-3, this may not be accompanied with a elevation in WBC. if fever develops: Acetaminophen for fever. Albuterol nebulizer Tx every 12 hours for 24 hours to facilitate adequate lung expansion and prevent development of atelectasis. -Euglycemic: bloods sugars under 130mmol/L for optimal healing -Normotensive: Avoid events of hypertension. This helps to keep post operative healing intact and avoids destabilization of beneficial hemostatic coagulation. -Lumbar: -If patient is comfortable encouraged the patient to lay on their side to facilitate wound healing -Drains: -Hemovac drains: These will be to full compression unless otherwise ordered. Please record and document output AND characteristic of fluid present independently EVERY 6 hours more often as needed. if there in no output indicate this by documenting 0ml. If output is greater than 100 ml in one hour of francois blood call provider. These drains will be removed once the drainage is at a acceptable level (generally less than 100ml in 24 hours) -Joel dressing: This will stay in place and will be removed at the patients follow up visit. Nursing is to assess the seal and power source. The seal should be intact and the power source should have a green flashing light indicating it is functioning well. Batteries can last up to 14 days. If a leak develops the dressing edges can be reinforced with a Tegaderm dressing to reestablish intact seal. The Joel dressing is NOT a wound vac. This does not get changed, it does not need home health management. -Record output independently, drain 1. Is a deep drain. Wound drainage is described by type, color, amount, and odor. Drainage can be 1 Serous: Clear and thin, may be present in healing healthy wound. 2 Serosanguineous containing blood may also be present and healthy healing wound 3. Sanguinous primarily blood 4. Purulent this is thick, white, and pus like. It may be indicated to give of a infection and should constitute a call to the provider immediately with the plan that the sample should be cultured. -Dressings Take care not to disrupt the JOEL dressing seal. If there is a break in the seal it can be trouble shot with a Tegaderm dressing. -Dressing to Hemovac drains may be changed once the drains have been removed by the provider. -Bowel management: -Colace 100mg bid -Diet: -Clear liquid diet and advance as patient tolerates within dietary limitations ( example: diabetic, Cardiac) -Incentive Spirometer: -10 x hour while awake, RN please educate and observe repeat demonstration, have IS at bedside POD #1 -X-rays: - none indicated at this time -Consults: -Physical Therapy evaluation, treatment recommendations, and discharge recommendations Call with questions Vandana Rodriguez ACNP- Orthopaedic Spine Surgery nurse practitioner For Dr Salima Reyes Patient was examined, chart reviewed, labs evaluated, and diagnostic studies and findings analyzed. Case was discussed with Dr. Yaw Reyes who formulated the plan of care. This medical document was created using an electronic medical record system with [employer] dictation system. Although this document has been carefully reviewed, there might still be some phonetic and typographical errors. These areas are purely typographical due to imperfections of the software programs, and do not reflect any compromise in the patient's medical care. Plan discussed with Plan discussed with: Patient, Daughter, Other (bedside RN) Visit Coding Surgery Date of Service if different f: Jun 19, 2025 Billing Provider: MISHEL RODRIGUEZ NP Surgery Visit Codes: NOT BILLABLE MISHEL RODRIGUEZ NP Jun 23, 2025 11:34
--- NOTE | 2025-06-23 14:48 | DVHPN2 ---
Subjective The patient seen and examined at bedside. The patient complains of leg pain Reviewed: Care Plan, H&P, Labs, Medications, Previous Orders Changes from previous H/P or p: No Changes Objective Vitals Vital Signs Date Time Temp Pulse Resp B/P (MAP) Pulse Ox O2 Delivery O2 Flow Rate FiO2 06/23/25 09:00 98.3 67 17 134/78 (96) 95 98.3 06/23/25 08:10 Room Air* 0 N/A Nasal Cannula* Intake/Output Intake and Output 06/23/25 07:00 Intake Total 2300 ml Balance 2300 ml Intake Oral 1400 ml IV Total 100 ml Tube Feeding 800 ml # Voids 2 General Appearance: Alert, Cooperative, No acute distress HEENT: Atraumatic, PERRLA, EOMI, Mucous membr. moist/pink Neck: Supple Lungs: Clear to auscultation, Normal air movement Cardiovascular: Regular rate, Normal S1, Normal S2, No murmurs, Gallops, Rubs Neuro: Cranial nerves 3-12 NL Psych/Mental Status: Mental status NL Medications Current Medications Medications Dose Ordered Sig/Diana Route Start Time Stop Time Status Last Admin Dose Admin Ondansetron HCl 4 mg Q4HP PRN IV 06/19/25 09:15 Acetaminophen 650 mg Q6HP PRN PO 06/19/25 09:15 Acetaminophen/ Hydrocodone Bitart 1 tab Q6HP PRN PO 06/19/25 09:15 06/23/25 10:16 1 TAB Morphine Sulfate 1 mg Q4HP PRN IV 06/19/25 09:15 06/20/25 03:49 1 MG Cyclobenzaprine HCl 10 mg TID PO 06/19/25 14:00 06/23/25 14:01 10 MG Docusate Sodium 100 mg BID PO 06/19/25 10:00 06/23/25 10:15 100 MG Nitroglycerin 0.4 mg Q5MINP PRN SL 06/19/25 09:15 Morphine Sulfate 2 mg Q30M PRN IV 06/19/25 09:15 Gabapentin 300 mg TID PO 06/19/25 14:00 06/23/25 14:01 300 MG Hydroxychloroquine Sulfate 200 mg QPM PO 06/19/25 18:00 06/22/25 18:07 200 MG Patient Own Medication 1 tab QPM PO 06/19/25 18:00 UNV Patient Own Medication 25 mg QPM PRN PO 06/19/25 09:15 UNV Amlodipine Besylate 10 mg QPM PO 06/19/25 18:00 06/22/25 18:09 10 MG Hydroxyzine Pamoate 25 mg QPM PRN PO 06/19/25 10:00 Nicotine 1 patch DAILY@1800 TD 06/20/25 18:00 06/22/25 18:10 1 PATCH Throat Lozenges 1 kristy Q2HP MT 06/20/25 20:00 06/23/25 05:26 1 KRISTY Cefazolin Sodium 50 ml @ 100 mls/hr Q8HR IV 06/21/25 15:00 06/23/25 14:00 100 MLS/HR Laboratory Results Laboratory Tests 06/21/25 02:52 Urinalysis Test 06/15/25 10:32 Urine Color Light-yellow (Yellow) Urine Clarity Clear (Clear) Urine pH 5.5 (5.0-9.0) Urine Specific [place] 1.014 (1.001-1.035) Urine Protein Negative (Negative) Urine Ketones Negative (Negative) Urine Blood Negative /uL (Negative) Urine Nitrite Negative (Negative) Urine Bilirubin Negative (Negative) Urine Urobilinogen Normal mg/dL (Negative) Urine Leukocyte Esterase Negative /uL (Negative) Urine RBC None seen /hpf (0 - 4) Urine Microscopic WBC < 1 /HPF (0-5) Urine Squamous Epithelial Cells Few /hpf (<5) Urine Bacteria None seen /hpf (None Seen) Urine Glucose Normal mg/dL (Normal) Assessment/Plan Assessment/Plan * Hypertension for which the patient will continue on amlodipine. * Rheumatoid arthritis, for which she will continue on Plaquenil. * Tobacco abuse for which she has been advised to quit smoking and nicotine patch will be placed. Time spent was 11 minutes. * Hyperlipidemia. * Chronic kidney disease, stage 3. 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 The patient will be placed on pain medication and receive physical therapy. * Home health for PT. DM for FWW, bedside comode, DW patient and billyugher. Per daughter, patient lost her phone in the linen change of the hospital, so now, all of the phone from [employer] is going into voice mail. Will change the contact to the daughter so her equipment can be delivery. This medical document was created using an electronic medical record system with [employer] direct computerized dictation system. Although this document has been carefully reviewed, there may still be some phonetic and typographical errors. These areas are purely typographical due to imperfections of the software programs, and do not reflect any compromise in the patient's medical care. Plan discussed with: Patient, Daughter My Orders Orders - YADIEL YUONG MD Procedure Category Date Status Time * Gis Technician CONS 06/22/25 Transmitted Consult Date of Service: Jun 23, 2025 Billing Provider: YADIEL YOUNG MD Common Visit Codes: [id number] INP/OBS CARE(HIGH) YADIEL YOUNG MD Jun 23, 2025 14:48
[2025-06-24] VITALS (9 sets, daily range): BP systolic 106–140; BP diastolic 70–85; PULSE 61–71; RESP 17–20; TEMP 96.6–98.3; O2SAT 93–98
--- NOTE | 2025-06-24 09:58 | DVHPN2 ---
Subjective Date Seen: Jun 24, 2025 Post op day Post op day: 5 Patient reports: No new complaints, Feels better Nursing reports: No new complaints, No abdominal pain, No dizziness, No cough General: Normal HNT: Normal Cardiovascular: Normal Respiratory: Normal Gastrointestinal: Normal Genitourinary: Normal Musculoskeletal: Normal Neurological: Normal (improved preop sympt, intermittent right hip thigh pain responsive to oral pain meds) Objective Vitals Vital Sign Date Time Temp Pulse Resp B/P (MAP) Pulse Ox O2 Delivery O2 Flow Rate FiO2 06/24/25 08:58 98.3 63 20 124/77 (93) 94 98.3 06/23/25 20:00 Room Air* 0 N/A Nasal Cannula* Total Intake and Output 06/23/25 06/23/25 06/24/25 15:00 23:00 07:00 Intake Total 50 ml 675 ml 1500 ml Balance 50 ml 675 ml 1500 ml Medications Current Medications Medications Dose Ordered Sig/Diana Route Start Time Stop Time Status Last Admin Dose Admin Ondansetron HCl 4 mg Q4HP PRN IV 06/19/25 09:15 Acetaminophen 650 mg Q6HP PRN PO 06/19/25 09:15 Acetaminophen/ Hydrocodone Bitart 1 tab Q6HP PRN PO 06/19/25 09:15 06/23/25 20:23 1 TAB Morphine Sulfate 1 mg Q4HP PRN IV 06/19/25 09:15 06/20/25 03:49 1 MG Cyclobenzaprine HCl 10 mg TID PO 06/19/25 14:00 06/24/25 05:28 10 MG Docusate Sodium 100 mg BID PO 06/19/25 10:00 06/23/25 21:09 100 MG Nitroglycerin 0.4 mg Q5MINP PRN SL 06/19/25 09:15 Morphine Sulfate 2 mg Q30M PRN IV 06/19/25 09:15 Gabapentin 300 mg TID PO 06/19/25 14:00 06/24/25 05:28 300 MG Hydroxychloroquine Sulfate 200 mg QPM PO 06/19/25 18:00 06/23/25 19:24 200 MG Patient Own Medication 1 tab QPM PO 06/19/25 18:00 UNV Patient Own Medication 25 mg QPM PRN PO 06/19/25 09:15 UNV Amlodipine Besylate 10 mg QPM PO 06/19/25 18:00 06/23/25 19:24 10 MG Hydroxyzine Pamoate 25 mg QPM PRN PO 06/19/25 10:00 Nicotine 1 patch DAILY@1800 TD 06/20/25 18:00 06/23/25 19:29 1 PATCH Throat Lozenges 1 kristy Q2HP MT 06/20/25 20:00 06/23/25 20:25 1 KRISTY Cefazolin Sodium 50 ml @ 100 mls/hr Q8HR IV 06/21/25 15:00 06/24/25 05:28 100 MLS/HR General: Normal, Normal Appearance Head/Eyes: Normal Neck: Normal Lungs: Other (speaking full sentences) Cardiovascular: Other (skin pink warm dry) Abdominal: Normal, No distension, Other (no complaints) Musculoskeletal: Normal, Other (improving strength, improved ambulation) Extremities: Moves all, Normal tone, No calf tenderness, No evidence of DVT, No gross neurovasc change, No peripheral edema Skin: Normal, Other (JOEL inplace, seal intact, ) Neurological: Normal, Normal Speech, No Sensory Deficits Labs and Microbiology Laboratory Tests 06/21/25 02:52 Test 06/21/25 02:52 Range/Units Serum Glucose 96 74-106 mg/dL Ass/Plan Labs and/or images reviewed: Labs reviewed by me Problem List * Hypertension for which the patient will continue on amlodipine. * Rheumatoid arthritis, for which she will continue on Plaquenil. * Tobacco abuse for which she has been advised to quit smoking and nicotine patch will be placed. Time spent was 11 minutes. * Hyperlipidemia. * Chronic kidney disease, stage 3. 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 The patient will be placed on pain medication and receive physical therapy. * post operative pain Problems(with codes): (1) Acute post-operative pain (2) Muscle spasm of back Assessment/Plan Patient is improving with ambulation assist x 1 physical therapy continues to improve not independent Patient states that her preoperative symptoms to her bilateral lower extremities are improved Patient is experiencing expected postoperative pain Pain to the right thigh yesterday, did not recurred Patient has been using oral medications primarily sore throat resolved Patient is voiding appropriately Tolerating diet Patient is progressing to discharge today or tomorrow POD # 5 -Disposition: -Home with home health -Discharge RX: Patient are already picked up postoperative prescriptions -Follow up appointment: with Dr Reyes on scheduled appointment [phone] [id number] [facility] [address] [place] [address] -Pain: - IV pain meds post op day 1, with PO supplementation, goal is to progress weaning off IV medications and control pain with PO only. morphine 1mg q 4 hours (PAIN 7-10) - P.O. analgesics:Tylenol 650MG (PAIN 1-3) [place] 10/325 mg (PAIN 4-6) - Muscle relaxers scheduled administration. This is a beneficial medications for the incisional pain as it is mostly related to muscle spasms. Flexeril 10 mg TID - Cepacol throat lozenges as needed for sore throat -DVT PPX: -Hold all chemical DVT/ blood thinners for 14 days postoperatively -use mechanical DVT PPX such as SCD's, ambulation -Activity: -working with PT and patient is progressing -Sit at side of bed for meals -Goal: Ambulate independently and safely (may use assistive devices if needed) -Medical Therapy goals: -Afebrile- Patient may develop a expected post operative fever by day 2-3, this may not be accompanied with a elevation in WBC. if fever develops: Acetaminophen for fever. Albuterol nebulizer Tx every 12 hours for 24 hours to facilitate adequate lung expansion and prevent development of atelectasis. -Euglycemic: bloods sugars under 130mmol/L for optimal healing -Normotensive: Avoid events of hypertension. This helps to keep post operative healing intact and avoids destabilization of beneficial hemostatic coagulation. -Lumbar: -If patient is comfortable encouraged the patient to lay on their side to facilitate wound healing --Bowel management: -Colace 100mg bid -Diet: -Patient tolerating within dietary limitations ( example: diabetic, Cardiac) -Incentive Spirometer: -10 x hour while awake, RN please educate and observe repeat demonstration, have IS at bedside POD #1 -X-rays: - none indicated at this time Call with questions Vandana Rodriguez ACNP- Orthopaedic Spine Surgery nurse practitioner For Dr Salima Reyes Patient was examined, chart reviewed, labs evaluated, and diagnostic studies and findings analyzed. Case was discussed with Dr. Yaw Reyes who formulated the plan of care. This medical document was created using an electronic medical record system with Dragon computerized dictation system. Although this document has been carefully reviewed, there might still be some phonetic and typographical errors. These areas are purely typographical due to imperfections of the software programs, and do not reflect any compromise in the patient's medical care. Prognosis: Good Plan discussed with daughter, bedside RN Visit Coding Surgery Date of Service if different f: Jun 19, 2025 Billing Provider: MISHEL RODRIGUEZ NP Surgery Visit Codes: NOT BILLABLE MISHEL RODRIGUEZ NP Jun 24, 2025 09:58
--- NOTE | 2025-06-24 12:21 | DVHPN2 ---
Subjective The patient seen and examined at bedside. The patient complains of leg pain. The patient does not want morphine. But [place] q.6 does not help her pain Reviewed: Care Plan, H&P, Labs, Medications, Previous Orders Changes from previous H/P or p: No Changes Objective Vitals Vital Signs Date Time Temp Pulse Resp B/P (MAP) Pulse Ox O2 Delivery O2 Flow Rate FiO2 06/24/25 08:58 98.3 63 20 124/77 (93) 94 98.3 06/24/25 08:10 Room Air* 0 N/A Nasal Cannula* Intake/Output Intake and Output 06/24/25 07:00 Intake Total 2225 ml Balance 2225 ml Intake Oral 2075 ml IV Total 150 ml # Voids 5 General Appearance: Alert, Cooperative, No acute distress HEENT: Atraumatic, PERRLA, EOMI, Mucous membr. moist/pink Neck: Supple Lungs: Clear to auscultation, Normal air movement Cardiovascular: Regular rate, Normal S1, Normal S2, No murmurs, Gallops, Rubs Neuro: Cranial nerves 3-12 NL Psych/Mental Status: Mental status NL Medications Current Medications Medications Dose Ordered Sig/Diana Route Start Time Stop Time Status Last Admin Dose Admin Ondansetron HCl 4 mg Q4HP PRN IV 06/19/25 09:15 Acetaminophen 650 mg Q6HP PRN PO 06/19/25 09:15 Acetaminophen/ Hydrocodone Bitart 1 tab Q6HP PRN PO 06/19/25 09:15 06/24/25 10:42 1 TAB Morphine Sulfate 1 mg Q4HP PRN IV 06/19/25 09:15 06/20/25 03:49 1 MG Cyclobenzaprine HCl 10 mg TID PO 06/19/25 14:00 06/24/25 05:28 10 MG Docusate Sodium 100 mg BID PO 06/19/25 10:00 06/24/25 10:41 100 MG Nitroglycerin 0.4 mg Q5MINP PRN SL 06/19/25 09:15 Morphine Sulfate 2 mg Q30M PRN IV 06/19/25 09:15 Gabapentin 300 mg TID PO 06/19/25 14:00 06/24/25 05:28 300 MG Hydroxychloroquine Sulfate 200 mg QPM PO 06/19/25 18:00 06/23/25 19:24 200 MG Patient Own Medication 1 tab QPM PO 06/19/25 18:00 UNV Patient Own Medication 25 mg QPM PRN PO 06/19/25 09:15 UNV Amlodipine Besylate 10 mg QPM PO 06/19/25 18:00 06/23/25 19:24 10 MG Hydroxyzine Pamoate 25 mg QPM PRN PO 06/19/25 10:00 Nicotine 1 patch DAILY@1800 TD 06/20/25 18:00 06/23/25 19:29 1 PATCH Throat Lozenges 1 kristy Q2HP MT 06/20/25 20:00 06/23/25 20:25 1 KRISTY Cefazolin Sodium 50 ml @ 100 mls/hr Q8HR IV 06/21/25 15:00 06/24/25 05:28 100 MLS/HR Laboratory Results Laboratory Tests 06/21/25 02:52 Urinalysis Test 06/15/25 10:32 Urine Color Light-yellow (Yellow) Urine Clarity Clear (Clear) Urine pH 5.5 (5.0-9.0) Urine Specific [place] 1.014 (1.001-1.035) Urine Protein Negative (Negative) Urine Ketones Negative (Negative) Urine Blood Negative /uL (Negative) Urine Nitrite Negative (Negative) Urine Bilirubin Negative (Negative) Urine Urobilinogen Normal mg/dL (Negative) Urine Leukocyte Esterase Negative /uL (Negative) Urine RBC None seen /hpf (0 - 4) Urine Microscopic WBC < 1 /HPF (0-5) Urine Squamous Epithelial Cells Few /hpf (<5) Urine Bacteria None seen /hpf (None Seen) Urine Glucose Normal mg/dL (Normal) Labs and/or images reviewed: Labs reviewed by me Assessment/Plan Assessment/Plan * Hypertension for which the patient will continue on amlodipine. * Rheumatoid arthritis, for which she will continue on Plaquenil. * Tobacco abuse for which she has been advised to quit smoking and nicotine patch will be placed. Time spent was 11 minutes. * Hyperlipidemia. * Chronic kidney disease, stage 3. 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 The patient will be placed on pain medication and receive physical therapy. * we will change [place] to q.3 PRN for better pain control * Home health for PT. DM for FWW, bedside comode, DW patient and daugher. Per daughter, patient lost her phone in the linen change of the hospital, so now, all of the phone from [employer] is going into voice mail. Will change the contact to the daughter so her equipment can be delivery. This medical document was created using an electronic medical record system with [employer] direct computerized dictation system. Although this document has been carefully reviewed, there may still be some phonetic and typographical errors. These areas are purely typographical due to imperfections of the software programs, and do not reflect any compromise in the patient's medical care. Plan discussed with: Patient, Daughter Date of Service: Jun 24, 2025 Billing Provider: YADIEL YOUNG MD Common Visit Codes: [id number] INP/OBS CARE(HIGH) YADIEL YOUNG MD Jun 24, 2025 12:21
[2025-06-24] MEDS: HYDROcodone-ACET 10/325MG TAB PO PRN (15:01)
[2025-06-25] VITALS (9 sets, daily range): BP systolic 110–151; BP diastolic 73–86; PULSE 59–71; RESP 17–19; TEMP 36.7; O2SAT 93–98
[2025-06-25 06:40] LABS: Hematocrit 26.6 % (36.0-46.0); Hemoglobin 9.3 g/dL (12.2-16.2); Mean Corpuscular Hemoglobin 34.0 pg (28.0-32.0); Mean Corpuscular Volume 97.6 fL (80.0-100.0); Nucleated Red Blood Cells % 0.0 %
[2025-06-25 06:45] LABS: Chloride 107 mmol/L (98-107); Potassium 3.8 mmol/L (3.5-5.1); Sodium 143 mmol/L (136-145)
[2025-06-25 06:46] LABS: Anion Gap 6 (5-15); Calcium 9.1 mg/dL (8.7-10.4); Carbon Dioxide 30 mmol/L (20-31)
[2025-06-25 06:51] LABS: BUN/Creatinine Ratio 9.5 (10.0-20.0)
[2025-06-25 06:52] LABS: Blood Urea Nitrogen 8 mg/dL (9-23); Glucose 71 mg/dL (74-106)
--- NOTE | 2025-06-25 13:28 | DVHDS2 ---
Discharge Summary Date of Admission Jun 19, 2025 at 09:04 Date of Discharge: Jun 25, 2025 Labs/Diagnostic Data: Laboratory Results Test 06/25/25 05:19 06/20/25 05:39 06/15/25 10:32 White Blood Count 6.4 10^3/uL (4.4-10.8) Red Blood Count 2.72 10^6/uL (4.0-5.20) Hemoglobin 9.3 g/dL (12.2-16.2) Hematocrit 26.6 % (36.0-46.0) Mean Corpuscular Volume 97.6 fL (80.0-100.0) Mean Corpuscular Hemoglobin 34.0 pg (28.0-32.0) Mean Corpuscular Hemoglobin Concent 34.9 g/dL (32.0-36.0) Red Cell Distribution Width 12.6 % (11.8-14.3) Platelet Count 199 10^3/uL (140-450) Mean Platelet Volume 7.5 fL (6.9-10.8) Neutrophils (%) (Auto) 68.1 % (37.0-80.0) Lymphocytes (%) (Auto) 12.0 % (10.0-50.0) Monocytes (%) (Auto) 12.4 % (0.0-12.0) Eosinophils (%) (Auto) 6.8 % (0.0-7.0) Basophils (%) (Auto) 0.7 % (0.0-2.0) Neutrophils # (Auto) 4.4 10 ^3/uL (1.6-8.6) Lymphocytes # (Auto) 0.8 10 ^3/uL (0.4-5.4) Monocytes # (Auto) 0.8 10 ^3/uL (0-1.3) Eosinophils # (Auto) 0.4 10 ^3/uL (0-0.8) Basophils # (Auto) 0 10 ^3/uL (0-0.2) Nucleated Red Blood Cells 0.0 % Sodium Level 143 mmol/L (136-145) Potassium Level 3.8 mmol/L (3.5-5.1) Chloride Level 107 mmol/L (98-107) Carbon Dioxide Level 30 mmol/L (20-31) Anion Gap 6 (5-15) Blood Urea Nitrogen 8 mg/dL (9-23) Creatinine 0.84 mg/dL (0.550-1.02) Glomerular Filtration Rate Calc 73 mL/min (>90) BUN/Creatinine Ratio 9.5 (10.0-20.0) Serum Glucose 71 mg/dL (74-106) Calcium Level 9.1 mg/dL (8.7-10.4) Total Bilirubin 0.5 mg/dL (0.2-1.0) Aspartate Amino Transferase (AST) 38 U/L (13-40) Alanine Aminotransferase (ALT) 18 U/L (7-40) Alkaline Phosphatase 68 U/L (46-116) Total Protein 5.3 g/dL (5.7-8.2) Albumin 3.2 g/dL (3.2-4.8) Prothrombin Time 10.5 sec (9.3-11.8) Prothrombin Time INR 0.99 (0.9-1.15) Activated Partial Thromboplast Time 28.5 SEC (24.5-34.5) Urine Color Light-yellow (Yellow) Urine Clarity Clear (Clear) Urine pH 5.5 (5.0-9.0) Urine Specific [place] 1.014 (1.001-1.035) Urine Protein Negative (Negative) Urine Ketones Negative (Negative) Urine Blood Negative /uL (Negative) Urine Nitrite Negative (Negative) Urine Bilirubin Negative (Negative) Urine Urobilinogen Normal mg/dL (Negative) Urine Leukocyte Esterase Negative /uL (Negative) Urine RBC None seen /hpf (0 - 4) Urine Microscopic WBC < 1 /HPF (0-5) Urine Squamous Epithelial Cells Few /hpf (<5) Urine Bacteria None seen /hpf (None Seen) Urine Glucose Normal mg/dL (Normal) Other Laboratory Tests 06/25/25 05:19 Brief Hx & Hospital Course: see dictated note Condition at Discharge: Fair Final Diagnosis/Problems List lumber surgery Discharge Disposition: Home Discharge Instruct/Medications Diet: Cardiac 2g Na,low cholest Activity: No Restrictions, As Tolerated Follow Up/Referral: fu with pcp/dr Reyes Medications: resume home meds rest meds per dr Reyes Scheduled Amlodipine Besylate (Amlodipine Besylate), 1 TAB PO QPM, (Reported) Aspirin (Aspirin Low Dose), 1 TAB PO DAILY, (Reported) Atorvastatin Calcium (Lipitor), 1 TAB PO QPM, (Reported) Diclofenac Sodium (Diclofenac Sodium Ec), 1 TAB PO BID, (Reported) Estradiol (Gynodiol), 0.025 MG TOP QWEEKLY, (Reported) Gabapentin (Gabapentin), 1 CAP PO TID, (Reported) Hydroxychloroquine Sulfate (Hydroxychloroquine Sulfat), 200 MG PO QPM, (Reported) Lisinopril (Lisinopril), 1 TAB PO BID, (Reported) Melatonin (Kp Melatonin), 10 MG PO QPM, (Reported) Omeprazole (Gnp Omeprazole), 1 TAB PO PRN, (Reported) Scheduled PRN Hydroxyzine Hcl (Hydroxyzine Hcl), 25 MG PO QPM PRN for prn, (Reported) Miscellaneous Medications Acetaminophen (Tylenol), 500 MG AR, (Reported) Cyanocobalamin (B12), 1,000 MCG PO, (Reported) Docusate Sodium (Stool Softener), 100 MG PO, (Reported) Levocetirizine Dihydrochloride (Levocetirizine Dihydrochl), 5 MG PO, (Reported) Magnesium Oxide (Magnesium Oxide), 250 MG OR, (Reported) Vitamin D & K (D3 + K2 125-100 Mcg), 1 CAP PO, (Reported) Discharge Statement: "Patient was advised to return to the ER or call 911 if any headaches, dizziness, shortness of breath, chest pain, abdominal pain, bleeding, fevers, or worsening of medical condition. Patient was counseled about treatment plan, medications, possible side effects, patientverbalized understanding. All questions were answered to the best of my ability. This discharge took greater then 30 minutes in planning, reviewing documentation, counseling the patient, and discussing with other team members." ASSESSMENT ASSESSMENT Assessment lumber surgery Date of Service: Jun 25, 2025 Billing Provider: SAMEER MARRERO MD Common Visit Codes: [id number] DISCH DAY >30min SAMEER MARRERO MD Jun 25, 2025 13:28
--- NOTE | 2025-06-25 14:58 | DVHPN2 ---
Progress Note - Surgical Date Seen: Jun 25, 2025 Post op day Post op day: 6 Subjective Patient reports: No new complaints, Feels better Review of Systems: MSK:Normal, NEURO:Normal (No complaints of any preoperative symptoms at this time, patient reports a have resolved) Objective Vital signs Vital Sign Date Time Temp Pulse Resp B/P (MAP) Pulse Ox O2 Delivery O2 Flow Rate FiO2 06/25/25 13:00 98.0 64 17 129/83 (98) 95 98.0 06/25/25 08:00 Room Air* 0 N/A Nasal Cannula* Total Intake and Output 06/24/25 06/24/25 06/25/25 15:00 23:00 07:00 Intake Total 50 ml 450 ml 400 ml Balance 50 ml 450 ml 400 ml Medications Current Medications Medications Dose Ordered Sig/Diana Route Start Time Stop Time Status Last Admin Dose Admin Ondansetron HCl 4 mg Q4HP PRN IV 06/19/25 09:15 Acetaminophen 650 mg Q6HP PRN PO 06/19/25 09:15 Morphine Sulfate 1 mg Q4HP PRN IV 06/19/25 09:15 06/20/25 03:49 1 MG Cyclobenzaprine HCl 10 mg TID PO 06/19/25 14:00 06/25/25 14:15 10 MG Docusate Sodium 100 mg BID PO 06/19/25 10:00 06/25/25 08:42 100 MG Nitroglycerin 0.4 mg Q5MINP PRN SL 06/19/25 09:15 Morphine Sulfate 2 mg Q30M PRN IV 06/19/25 09:15 Gabapentin 300 mg TID PO 06/19/25 14:00 06/25/25 14:15 300 MG Hydroxychloroquine Sulfate 200 mg QPM PO 06/19/25 18:00 06/24/25 18:02 200 MG Patient Own Medication 1 tab QPM PO 06/19/25 18:00 UNV Patient Own Medication 25 mg QPM PRN PO 06/19/25 09:15 UNV Amlodipine Besylate 10 mg QPM PO 06/19/25 18:00 06/24/25 18:03 10 MG Hydroxyzine Pamoate 25 mg QPM PRN PO 06/19/25 10:00 Nicotine 1 patch DAILY@1800 TD 06/20/25 18:00 06/24/25 18:07 1 PATCH Throat Lozenges 1 kristy Q2HP MT 06/20/25 20:00 06/25/25 12:00 1 KRISTY Cefazolin Sodium 50 ml @ 100 mls/hr Q8HR IV 06/21/25 15:00 06/25/25 14:24 100 MLS/HR Acetaminophen/ Hydrocodone Bitart 1 tab Q3HPRN PRN PO 06/24/25 13:00 06/25/25 14:15 1 TAB Laboratory Laboratory Tests 06/25/25 05:19 Test 06/25/25 05:19 Range/Units Serum Glucose 71 L 74-106 mg/dL Examination: GENERAL:Normal, HEENT:Normal, NECK:Normal, LUNGS:Normal, CVS:Normal, ABDOMEN:Normal, MSK:Normal (Patient is able to ambulate 2-3 times around the nurse's station with a walker), SKIN:Normal (Jacey dressing intact, drain sites covered no drainage noted), NEURO:Normal (No further bilateral lower extremity complaints), :Normal Problem List/Assessment/Plan Problems: (1) Muscle spasm of back (2) Acute post-operative pain Assessment and Plan Patient is continuing to improve ambulating with walker with less assistance Patient states that her preoperative symptoms to her bilateral lower extremities are improved Patient is experiencing expected postoperative pain Right thigh pain seems to have resolved 100% Patient has been using oral medications primarily sore throat resolved Patient is voiding appropriately Tolerating diet Patient is progressing to discharge only barrier at this time is the delivering of her DME equipment, patient's family has been trying to keep pay the co-pay since Wednesday however not able to actually contact the DME irrigation equipment installer, waiting for further assistance with social worker health services from [facility]. POD # 6 -Disposition: -Home with home health -Discharge RX: Patient are already picked up postoperative prescriptions -Follow up appointment: with Dr Reyes on scheduled appointment [id number] [facility] [address] [place] [id number] -Pain: - IV pain meds post op day 1, with PO supplementation, goal is to progress weaning off IV medications and control pain with PO only. morphine 1mg q 4 hours (PAIN 7-10) - P.O. analgesics:Tylenol 650MG (PAIN 1-3) [place] 10/325 mg (PAIN 4-6) - Muscle relaxers scheduled administration. This is a beneficial medications for the incisional pain as it is mostly related to muscle spasms. Flexeril 10 mg TID - Cepacol throat lozenges as needed for sore throat -DVT PPX: -Hold all chemical DVT/ blood thinners for 14 days postoperatively -use mechanical DVT PPX such as SCD's, ambulation -Activity: -working with PT and patient is progressing -Sit at side of bed for meals -Goal: Ambulate independently and safely (may use assistive devices if needed) -Medical Therapy goals: -Afebrile- Patient may develop a expected post operative fever by day 2-3, this may not be accompanied with a elevation in WBC. if fever develops: Acetaminophen for fever. Albuterol nebulizer Tx every 12 hours for 24 hours to facilitate adequate lung expansion and prevent development of atelectasis. -Euglycemic: bloods sugars under 130mmol/L for optimal healing -Normotensive: Avoid events of hypertension. This helps to keep post operative healing intact and avoids destabilization of beneficial hemostatic coagulation. -Lumbar: -If patient is comfortable encouraged the patient to lay on their side to facilitate wound healing --Bowel management: -Colace 100mg bid -Diet: -Patient tolerating within dietary limitations ( example: diabetic, Cardiac) -Incentive Spirometer: -10 x hour while awake, RN please educate and observe repeat demonstration, have IS at bedside POD #1 -X-rays: - none indicated at this time Call with questions Vandana Scott ACNP- Orthopaedic Spine Surgery nurse practitioner For Dr Salima Reyes Patient was examined, chart reviewed, labs evaluated, and diagnostic studies and findings analyzed. Case was discussed with Dr. Yaw Reyes who formulated the plan of care. This medical document was created using an electronic medical record system with [employer] dictation system. Although this document has been carefully reviewed, there might still be some phonetic and typographical errors. These areas are purely typographical due to imperfections of the software programs, and do not reflect any compromise in the patient's medical care. Plan discussed with Plan discussed with: Patient, Spouse, Daughter, Other (Fátima SEALS x [phone]) Visit Coding Surgery Date of Service if different f: Jun 19, 2025 Billing Provider: MISHEL SCOTT NP Surgery Visit Codes: NOT BILLABLE MISHEL SCOTT NP Jun 25, 2025 14:58
[2025-06-25] MEDS: ceFAZolin 2 GM/D5W50ml 50 ML IV ONE (16:23)
[2025-06-25] MEDS: TRANEXAMIC ACID 20 ML ONE (16:23)
[2025-06-25] MEDS: ACETAMINOPHEN IV 1000 MG/100ML (10MG/ML) IV ONE (16:23)
--- NOTE | 2025-06-25 16:40 | DVHDS ---
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 She has history of hypertension, rheumatoid arthritis, chronic kidney disease, and hyperlipidemia. HOSPITAL COURSE: The patient was followed up by Dr. Reyes. The patient's hemoglobin was 9.3 at the time of discharge. She has been ambulating with physical therapy. The patient will be discharged home with medications as per Dr. Reyes as well as with home health and home walker. She will follow up with her primary and Dr. Reyes. FINAL DIAGNOSES: * Hypertension. * Rheumatoid arthritis. * Tobacco abuse. * Hyperlipidemia. * CKD stage 3. 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 Time spent on discharging planning, review of plan with the patient, nursing and family at the bedside was 38 minutes. MD RHYS Degroot/BROOKE/FABRIZIO TID: [id number] RECEIPT: [id number]
[2025-06-26 01:00] VITALS: BP 132/84; PULSE 62; RESP 17; TEMP 98.2; O2SAT 94
[2025-06-26 05:00] VITALS: BP 135/84; PULSE 62; RESP 18; TEMP 97.8; O2SAT 94
[2025-06-26 08:00] VITALS: PULSE 66; PULSE 70; RESP 16; O2SAT 96
[2025-06-26 08:44] VITALS: BP 116/70; PULSE 70; RESP 16; TEMP 97.5; O2SAT 96
[2025-06-26 13:00] VITALS: BP 124/89; PULSE 66; RESP 18; TEMP 98.1; O2SAT 97
--- NOTE | 2025-06-26 13:07 | DVHPN2 ---
Progress Note Date Seen: Jun 26, 2025 Medical Necessity Reason Pt with a Central, PICC or Fol: No Subjective Patient reports: No new complaints Review of Systems: HEENT:Normal, CVS:Normal, RESPIRATORY:Normal, GI:Normal, :Normal, MSK:Normal, NEURO:Normal Objective vital signs Vital Sign Date Time Temp Pulse Resp B/P (MAP) Pulse Ox O2 Delivery O2 Flow Rate FiO2 06/26/25 08:44 97.5 70 16 116/70 (85) 96 97.5 06/26/25 08:00 Room Air* 0 N/A Nasal Cannula* Total Intake and Output 06/25/25 06/25/25 06/26/25 15:00 23:00 07:00 Intake Total 0 ml 510 ml 850 ml Output Total 3 ml 3 ml Balance 0 ml 507 ml 847 ml medications Current Medications Medications Dose Ordered Sig/Diana Route Start Time Stop Time Status Last Admin Dose Admin Ondansetron HCl 4 mg Q4HP PRN IV 06/19/25 09:15 Acetaminophen 650 mg Q6HP PRN PO 06/19/25 09:15 Morphine Sulfate 1 mg Q4HP PRN IV 06/19/25 09:15 06/20/25 03:49 1 MG Cyclobenzaprine HCl 10 mg TID PO 06/19/25 14:00 06/26/25 05:50 10 MG Docusate Sodium 100 mg BID PO 06/19/25 10:00 06/26/25 09:44 100 MG Nitroglycerin 0.4 mg Q5MINP PRN SL 06/19/25 09:15 Morphine Sulfate 2 mg Q30M PRN IV 06/19/25 09:15 Gabapentin 300 mg TID PO 06/19/25 14:00 06/26/25 05:50 300 MG Hydroxychloroquine Sulfate 200 mg QPM PO 06/19/25 18:00 06/25/25 17:44 200 MG Patient Own Medication 1 tab QPM PO 06/19/25 18:00 UNV Patient Own Medication 25 mg QPM PRN PO 06/19/25 09:15 UNV Amlodipine Besylate 10 mg QPM PO 06/19/25 18:00 06/25/25 17:45 10 MG Nicotine 1 patch DAILY@1800 TD 06/20/25 18:00 06/25/25 17:44 1 PATCH Throat Lozenges 1 kristy Q2HP MT 06/20/25 20:00 06/26/25 11:09 1 KRISTY Cefazolin Sodium 50 ml @ 100 mls/hr Q8HR IV 06/21/25 15:00 06/26/25 05:53 100 MLS/HR Acetaminophen/ Hydrocodone Bitart 1 tab Q3HPRN PRN PO 06/24/25 13:00 06/26/25 11:09 1 TAB Examination: GENERAL:Normal, HEENT:Normal, NECK:Normal, LUNGS:Normal, CVS:Normal, ABDOMEN:Normal, MSK:Normal, SKIN:Normal, NEURO:Normal, :Normal laboratory and microbiology Laboratory Tests 06/25/25 05:19 Test 06/25/25 05:19 Range/Units Serum Glucose 71 L 74-106 mg/dL Problem List/Assessment/Plan Problem List/Assessment/Plan * Hypertension for which the patient will continue on amlodipine. * Rheumatoid arthritis, for which she will continue on Plaquenil. * Tobacco abuse for which she has been advised to quit smoking and nicotine patch will be placed. Time spent was 11 minutes. * Hyperlipidemia. * Chronic kidney disease, stage 3. 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 The patient will be placed on pain medication and receive physical therapy. * Advanced care planning. The patient is a full code-Time spent was 18 minutes. Dc plan today after dme Plan discussed with: Patient, Daughter My Orders My Orders Orders - SAMEER MARRERO MD Procedure Category Date Status Time Discharge DISCHARGE 06/25/25 Transmitted 13:25 * Raw Material Planner CONS 06/25/25 Transmitted Consult Dietary Evaluation Review Comments: encourage nicotine cessation Expected Outcomes/Goals: improved nutrient utilization Date of Service: Jun 26, 2025 Billing Provider: SAMEER MARRERO MD Common Visit Codes: [id number] INP/OBS CARE(HIGH) SAMEER MARRERO MD Jun 26, 2025 13:07
[2025-06-26 15:14] VITALS: BP 127/80; TEMP 36.7
== END 2025-06-26 16:25 | disposition home health service (06) | DRG 451 ==
LOC: SUR 06:07 → OVERFLOW 09:04 → TELE-WESTW 14:31
PROVIDERS: ADMIT Internal Medicine; ATTEND Internal Medicine
PROC: 01NB0ZZ Release Lumbar Nerve, Open Approach (ICD-10-PCS; 2025-06-19)
PROC: 00NY0ZZ Release Lumbar Spinal Cord, Open Approach (ICD-10-PCS; 2025-06-19)
PROC: 4A11X4G Monitoring of Peripheral Nervous Electrical Activity, Intraoperative, External Approach (ICD-10-PCS; 2025-06-19)
PROC: 0SB20ZZ Excision of Lumbar Vertebral Disc, Open Approach (ICD-10-PCS; 2025-06-19)
PROC: 0SG00AJ Fusion of Lumbar Vertebral Joint with Interbody Fusion Device, Posterior Approach, Anterior Column, Open Approach (ICD-10-PCS; principal; 2025-06-19 07:56)
DX: M48.061 Spinal stenosis, lumbar region without neurogenic claudication (principal); M19.90 Unspecified osteoarthritis, unspecified site; M06.9 Rheumatoid arthritis, unspecified; I12.9 Hypertensive chronic kidney disease with stage 1 through stage 4 chronic kidney disease, or unspecified chronic kidney disease; N18.30 Chronic kidney disease, stage 3 unspecified; E78.5 Hyperlipidemia, unspecified; F17.210 Nicotine dependence, cigarettes, uncomplicated; M96.1 Postlaminectomy syndrome, not elsewhere classified; M43.16 Spondylolisthesis, lumbar region; M51.27 Other intervertebral disc displacement, lumbosacral region; Z71.6 Tobacco abuse counseling; Z90.710 Acquired absence of both cervix and uterus; Z79.899 Other long term (current) drug therapy; Z79.82 Long term (current) use of aspirin; G89.18 Other acute postprocedural pain
CPT/HCPCS: 36415; 72100; 76000; 80048; 80053; 81001; 85025; 85610; 85730; 86850; 86900; 86901; 97110; 97116; 97163; 97530; A4344; G0378; J1956; J2250; J2405; J2704

== ENCOUNTER 2025-09-03 08:59 | Outpatient (CLI) | payer OTHER ==
[2025-09-03 09:42] LABS: Hematocrit 39.8 % (36.0-46.0); Hemoglobin 13.3 g/dL (12.2-16.2); Mean Corpuscular Hemoglobin 32.3 pg (28.0-32.0); Mean Corpuscular Volume 97.1 fL (80.0-100.0); Nucleated Red Blood Cells % 0.0 %
[2025-09-03 09:46] LABS: Urine Protein, UAD Negative (Negative)
[2025-09-03 10:20] LABS: Alanine Aminotransferase 29 U/L (7-40); Albumin 4.5 g/dL (3.2-4.8); Alkaline Phosphatase 97 U/L (46-116); Anion Gap 10 (5-15); BUN/Creatinine Ratio 14.4 (10.0-20.0); Bilirubin, Total 0.5 mg/dL (0.2-1.0); Blood Urea Nitrogen 17 mg/dL (9-23); Calcium 10.4 mg/dL (8.7-10.4); Carbon Dioxide 28 mmol/L (20-31); Chloride 106 mmol/L (98-107); Cholesterol 195 mg/dL (< 200); Glucose 80 mg/dL (74-106); Potassium 3.7 mmol/L (3.5-5.1); Sodium 144 mmol/L (136-145); Total Protein 7.7 g/dL (5.7-8.2); Triglycerides 63 mg/dL (< 150)
[2025-09-03 10:25] LABS: HDL Cholesterol 80 mg/dL (40-59)
== END 2025-09-03 17:00 | disposition home or self-care (01) ==
LOC: LAB 08:59
PROVIDERS: ATTEND Nurse Practitioner Family
DX: I12.9 Hypertensive chronic kidney disease with stage 1 through stage 4 chronic kidney disease, or unspecified chronic kidney disease (principal); N18.9 Chronic kidney disease, unspecified; E11.21 Type 2 diabetes mellitus with diabetic nephropathy; I35.1 Nonrheumatic aortic (valve) insufficiency; Z00.01 Encounter for general adult medical examination with abnormal findings; E11.22 Type 2 diabetes mellitus with diabetic chronic kidney disease
CPT/HCPCS: 36415; 80053; 80061; 81001; 84443; 85025; 85652; 86431; 87086